=== PATIENT | female | born 1995 | race Caucasian/White ===

== ENCOUNTER 2018-09-24 10:30 | Inpatient (IN) | payer MEDICAID ==
[2018-09-24] VITALS (41 sets, daily range): BP systolic 89–198; BP diastolic 58–145; PULSE 76–107; RESP 11–27; Ht 167.6 cm; Wt 68.0 kg
[~2018-09-24] VITALS: Ht 167.6 cm; Wt 68.0 kg
[~2018-09-24 10:30] MED LIST: ETOMIDATE 20 MG INJ ONE; SUCCINYLCHOLINE CHLORIDE 100 MG/5 ML SYG IV ONE; VECURONIUM 10 MG VIAL ONE
[2018-09-24] MEDS ORDERED: LACTATED RINGER'S 1,000 ML IV SCH (10:33)
[2018-09-24] MEDS ORDERED: BETAMET NA PHOS/AC(6 MG/ML) 2 ML INJ SYG IM SCH (11:00)
[2018-09-24] MEDS ORDERED: OXYTOCIN 30 UNITS/LR 500 ML IV PRN ×2 (11:00→14:00)
[2018-09-24] MEDS ORDERED: METHYLERGONOVINE 0.2 MG INJ IM PRN ×2 (11:00→14:00)
[2018-09-24] MEDS ORDERED: MISOPROSTOL 200 MCG TAB PR PRN ×2 (11:00→14:00)
[2018-09-24] MEDS ORDERED: CARBOPROST 250 MCG INJ IM PRN ×2 (11:00→14:00)
[2018-09-24] MEDS ORDERED: LIDOCAINE 2% (SDV) 5 ML INJ ONE (11:01)
[2018-09-24] MEDS ORDERED: morphine 10 MG INJ ONE (11:01)
[2018-09-24] MEDS ORDERED: OXYTOCIN 30 UNITS/LR 500 ML BAG IV ONE (11:01)
[2018-09-24] MEDS ORDERED: SUGAMMADEX SODIUM 200 MG/2 ML VIAL IV ONE (11:13)
[2018-09-24] MEDS ORDERED: PROPOFOL 20 ML ONE (11:13)
[2018-09-24] MEDS ORDERED: ROCURONIUM 50 MG INJ ONE (11:13)
[2018-09-24] MEDS ORDERED: LABETALOL HCL 20MG INJ ONE (11:13)
[2018-09-24] MEDS ORDERED: SUCCINYLCHOLINE CHLORIDE 100 MG/5 ML SYG IV ONE (11:14)
[2018-09-24] MEDS ORDERED: DEXAMETHASONE 4 MG/ML 1 ML INJ ONE (11:14)
[2018-09-24] MEDS ORDERED: ONDANSETRON 4 MG INJ ONE (11:15)
[2018-09-24] MEDS ORDERED: MIDAZOLAM 1 MG/ML 2 ML INJ ONE (11:20)
[2018-09-24] MEDS ORDERED: LABETALOL HCL 20MG INJ IV PRN (12:00)
[2018-09-24] MEDS ORDERED: MIDAZOLAM 1 MG/ML 2 ML INJ IV PRN (12:00)
[2018-09-24] MEDS ORDERED: ALBUTEROL 0.083% (NEB) 2.5 MG/3 ML AMP HHN PRN (12:00)
[2018-09-24] MEDS ORDERED: hydrALAzine 20 MG INJ IV PRN (12:00)
[2018-09-24] MEDS ORDERED: MEPERIDINE 25 MG INJ IV PRN (12:00)
[2018-09-24] MEDS ORDERED: DIPHENHYDRAMINE 50 MG INJ IV PRN (12:00)
[2018-09-24] MEDS ORDERED: EPHEDrine 25 MG/5 ML SYG IV PRN (12:00)
[2018-09-24] MEDS ORDERED: KETOROLAC 30 MG INJ IV PRN (12:00)
[2018-09-24] MEDS ORDERED: HYDROmorphONE 0.5 MG/0.5 ML SYG IV PRN ×3 (12:00)
[2018-09-24] MEDS ORDERED: ONDANSETRON 4 MG INJ IV PRN (12:00)
[2018-09-24] MEDS ORDERED: LORAZEPAM 2 MG INJ ONE (12:21)
--- NOTE | 2018-09-24 12:29 | QN ---
Documentation Comment Called by ,ER attending ,there was a patient most likely in her third trimester seizing in ER and has received 2 gram of Mg and she was stable to be transferred to L&D He said There was a bedside ultrasound done in ER and baby was supposedly assumed to be in her third trimester, Besides that a friend of patient told us that she mentioned that her due date is in October. Upon Arrival to L&D,patient was noticed to be combative and not communicative I requested for a stat ultrasound,labs,Steroid injection ,Mg loading(Another 2 gram) and then maintenance of 2 gr /hr,Perinatology and Neonatology consult and Utox The plan was to perform a primary c/s when she was stable enough ,labs were back and Ultrasound confirmed a viable in her third Given the above information,,perinatologist was consulted im mediately.Over the phone,she recommended a c/section and She was asked to come to L&D and evaluate the patient and she kindly agreed to. Anesthesiologist ,Corrina Nj was called for consult and evaluation of patient . ,Second call was also called to be present and co-sign the c/section consent in case of Emergency and also assist the case, and were present at the bedside in few minutes .I was at the door that I heard a loud argument between them and He and Nurses were pushing the bed to the OR. told me that he gave the patient a medicine to calm her down, was informed immediately that I would not do a C/section unless she was stable enough and had an ultrasound confirming her third trimester Ultrasound was performed in the OR ,While and Ely present.Femoral length suggested third trimester and above 30 wks GA . recommended immediate c/section while the labs were not back and stated that patient was stable enough to get a surgery and confirmed the Decision. The c/section was performed successfully .Upon Entering to Uterine cavity, complete placental Abruption and around 200 cc blood noticed in Uterine cavity, The Pantry Goods Worker assumed care of the baby and Patient was transferred to ICU without any surgical complications and stable condition While surgery was still going on, and Amrita Nj entered the OR room again and as they had a heated conversation with and they were raising their voices loudly,I asked them to postpone any discussion in that regard for later on and allow the surgery continues smoothly as it's harmful to patient's safety and and kindly left the room MIKE SCHWARTZ M.D. Sep 24, 2018 12:29
[2018-09-24] MEDS ORDERED: CEFAZOLIN 2 GM/50 ML (PMX) 50 ML IVPB SCH (12:30)
--- NOTE | 2018-09-24 12:44 | CONS ---
Assessment/Plan Assessment/Plan Assessment/Plan (Daily) Assessment and recommendations; 1. Patient status post emergent for generalized seizure activity. 2. Intubated for airway protection. Continue mechanical ventilation. Add loading dose of Keppra 1 g followed by syncope milligrams every 12 hours. Continue Ativan as needed for breakthrough seizures. Monitor blood pressure. Add cefepime 1 g every 12 hours at least for 2 doses, obtain follow-up chest x-ray in 24 hours as well as postintubation chest x-ray. 35 minutes of critical care time was spent evaluating patient. Exclusive of any procedures. Procedure note; emergent intubation. Patient was given 20 mg of etomidate followed by vecuronium 10 mg IV push followed by intubation orally with 7.5 endotracheal tube without difficulty. Vocal cords were directly visualized and the tube traversed through. Chest x- ray has been ordered. Consultation Date/Type/Reason Admit Date/Time Sep 24, 2018 at 10:30 Date of Consultation: Sep 24, 2018 Type of Consult Pulmonary/critical care Patient is a 22-year-old lady who was third trimester came into the ER with seizures. Because of seizures patient had emergency done. Postoperatively patient was extubated transferred to ICU with the patient had a witnessed grand mal seizure. It was decided to electively intubate the patient. Past medical history; next 1. today. Medications; reviewed. Allergies; unknown. Social history, family history, occupational history is not available. Review of system; unable to be obtained. General exam; patient is not awake having seizures. Controlled with Ativan. Date/Time of Note DATE: 09/24/18 TIME: 12:41 Past Medical History Home Meds Unable to Obtain Active Prescriptions or Reported Meds Medications Current Medications Magnesium Sulfate 500 ml @ 50 mls/hr Q10H IV ; Start 09/24/18 at 10:32 Betamethasone Acet/Betameth SodPhos (Celestone Soluspan) 12 mg Q24H IM ; Start 09/24/18 at 11:00; Stop 09/25/18 at 11:01 Lactated Ringer's 1,000 ml @ 125 mls/hr Q8H IV ; Start 09/24/18 at 10:33 Cefazolin Sodium/ Dextrose 50 ml @ 100 mls/hr ONCE IVPB ; Start 09/24/18 at 12:30 Oxytocin/Lactated Ringer's 500 ml @ 0 mls/hr ONCE PRN IV .VAGINAL BLEEDING; Start 09/24/18 at 11:00 Methylergonovine Maleate (Methergine) 0.2 mg ONCE PRN IM .VAGINAL BLEEDING; Start 09/24/18 at 11:00 Carboprost Tromethamine (Hemabate) 250 mcg ONCE PRN IM .VAGINAL BLEEDING; Start 09/24/18 at 11:00 Misoprostol (Cytotec) 1,000 mcg ONCE PRN VT .VAGINAL BLEEDING; Start 09/24/18 at 11:00 Hydromorphone HCl (Dilaudid) 0.2 mg ICU RECOVERY PRN IV MILD PAIN LEVEL 1-3; Start 09/24/18 at 12:00; Stop 09/24/18 at 13:00 Hydromorphone HCl (Dilaudid) 0.4 mg ICU RECOVERY PRN IV MODERATE PAIN LEVEL 4-6; Start 09/24/18 at 12:00; Stop 09/24/18 at 13:00 Hydromorphone HCl (Dilaudid) 0.6 mg ICU RECOVERY PRN IV SEVERE PAIN LEVEL 7-10; Start 09/24/18 at 12:00; Stop 09/24/18 at 13:00 Ketorolac Tromethamine (Toradol) 30 mg ICU RECOVERY PRN IV FOR PAIN AFTER IV NARCOTIC MED; Start 09/24/18 at 12:00; Stop 09/24/18 at 13:00 Ondansetron HCl (Zofran Inj) 4 mg ICU RECOVERY PRN IV NAUSEA/VOMITING; Start 09/24/18 at 12:00; Stop 09/24/18 at 13:00 Labetalol HCl (Labetalol) 5 mg ICU RECOVERY PRN IV HIGH BLOOD PRESSURE; Start 09/24/18 at 12:00; Stop 09/24/18 at 13:00 Hydralazine HCl (Apresoline) 5 mg ICU RECOVERY PRN IV HIGH BLOOD PRESSURE; Start 09/24/18 at 12:00; Stop 09/24/18 at 13:00 Ephedrine Sulfate 5 mg PACU ORDER PRN IV BLOOD PRESSURRE SUPPORT; Start 09/24/18 at 12:00; Stop 09/24/18 at 13:00 Albuterol (Proventil 0.083% (Neb)) 2.5 mg ICU RECOVERY PRN HHN .WHEEZING; Start 09/24/18 at 12:00; Stop 09/24/18 at 13:00 Meperidine HCl (Demerol) 25 mg ICU RECOVERY PRN IV .RIGORS; Start 09/24/18 at 12:00; Stop 09/24/18 at 13:00 Diphenhydramine HCl (Benadryl) 25 mg ICU RECOVERY PRN IV .PRURITUS; Start 09/24/18 at 12:00; Stop 09/24/18 at 13:00 Midazolam HCl (Versed) 0.5 mg ICU RECOVERY PRN IV .ANXIETY; Start 09/24/18 at 12:00; Stop 09/24/18 at 13:00 Levetiracetam 100 ml @ 400 mls/hr ONCE ONCE IVPB ; Start 09/24/18 at 13:00; Stop 09/24/18 at 13:14; Status UNV Allergies: Coded Allergies: Unknown: Unable to obtain (Unverified , 09/24/18) 09/24 @ 1040am- per rn, unable to obtain allergy info at this time Exam/Review of Systems Exam Exam H EENT exam; supple neck, no JVD. No lymphadenopathy. Midline trachea. No thyromegaly. Pupils are small bilaterally. Patient has good dentition. Chest exam; clear to auscultation. S1-S2 audible, no murmurs. Regular rhythm. Abdomen exam; soft, midline dressing in place. Bowel sounds are sluggish. Extremity exam; no peripheral edema. PRINCIPAL JAVA SOFTWARE ENGINEER exam; patient just stopped having seizures. Is postictal. Results Result Diagram: 09/24/18 1213 09/24/18 1053 Results 24hrs Laboratory Tests Test 09/24/18 10:53 09/24/18 12:13 White Blood Count 12.4 H 23.2 #H Red Blood Count 4.04 L 4.38 Hemoglobin 11.9 L 12.8 Hematocrit 36.0 L 38.8 Mean Corpuscular Volume 89.1 88.6 Mean Corpuscular Hemoglobin 29.5 29.2 Mean Corpuscular Hemoglobin Concent 33.1 33.0 Red Cell Distribution Width 14.0 13.9 Platelet Count 181 194 Mean Platelet Volume 10.9 H 11.0 H Immature Granulocytes % 2.000 H 1.600 H Neutrophils % 82.3 H 89.8 H Lymphocytes % 11.2 L 5.7 L Monocytes % 3.8 2.5 Eosinophils % 0.3 0.1 Basophils % 0.4 0.3 Nucleated Red Blood Cells % 0.0 0.0 Immature Granulocytes # 0.250 H 0.370 H Neutrophils # 10.2 H 20.9 H Lymphocytes # 1.4 1.3 Monocytes # 0.5 0.6 Eosinophils # 0.0 0.0 Basophils # 0.1 0.1 Nucleated Red Blood Cells # 0.0 0.0 Prothrombin Time 11.7 L Prothrombin Time Ratio 0.9 INR International Normalized Ratio 0.85 Activated Partial Thromboplast Time 24.6 Fibrinogen 401.0 Sodium Level 139 Potassium Level 3.9 Chloride Level 110 Carbon Dioxide Level 21 Anion Gap 8 Blood Urea Nitrogen 6 L Creatinine 0.65 Est Glomerular Filtrat Rate mL/min > 60 Glucose Level 103 Uric Acid 7.1 Calcium Level 8.2 L Total Bilirubin 0.3 Direct Bilirubin 0.00 Indirect Bilirubin 0.3 Aspartate Amino Transf (AST/SGOT) 26 Alanine Aminotransferase (ALT/SGPT) 11 L Alkaline Phosphatase 120 Total Protein 6.1 Albumin 3.0 L Globulin 3.10 Albumin/Globulin Ratio 0.96 Medications Medication Current Medications Magnesium Sulfate 500 ml @ 50 mls/hr Q10H IV ; Start 09/24/18 at 10:32 Betamethasone Acet/Betameth SodPhos (Celestone Soluspan) 12 mg Q24H IM ; Start 09/24/18 at 11:00; Stop 09/25/18 at 11:01 Lactated Ringer's 1,000 ml @ 125 mls/hr Q8H IV ; Start 09/24/18 at 10:33 Cefazolin Sodium/ Dextrose 50 ml @ 100 mls/hr ONCE IVPB ; Start 09/24/18 at 12:30 Oxytocin/Lactated Ringer's 500 ml @ 0 mls/hr ONCE PRN IV .VAGINAL BLEEDING; Start 09/24/18 at 11:00 Methylergonovine Maleate (Methergine) 0.2 mg ONCE PRN IM .VAGINAL BLEEDING; Start 09/24/18 at 11:00 Carboprost Tromethamine (Hemabate) 250 mcg ONCE PRN IM .VAGINAL BLEEDING; Start 09/24/18 at 11:00 Misoprostol (Cytotec) 1,000 mcg ONCE PRN VT .VAGINAL BLEEDING; Start 09/24/18 at 11:00 Hydromorphone HCl (Dilaudid) 0.2 mg ICU RECOVERY PRN IV MILD PAIN LEVEL 1-3; Start 09/24/18 at 12:00; Stop 09/24/18 at 13:00 Hydromorphone HCl (Dilaudid) 0.4 mg ICU RECOVERY PRN IV MODERATE PAIN LEVEL 4-6; Start 09/24/18 at 12:00; Stop 09/24/18 at 13:00 Hydromorphone HCl (Dilaudid) 0.6 mg ICU RECOVERY PRN IV SEVERE PAIN LEVEL 7-10; Start 09/24/18 at 12:00; Stop 09/24/18 at 13:00 Ketorolac Tromethamine (Toradol) 30 mg ICU RECOVERY PRN IV FOR PAIN AFTER IV NARCOTIC MED; Start 09/24/18 at 12:00; Stop 09/24/18 at 13:00 Ondansetron HCl (Zofran Inj) 4 mg ICU RECOVERY PRN IV NAUSEA/VOMITING; Start 09/24/18 at 12:00; Stop 09/24/18 at 13:00 Labetalol HCl (Labetalol) 5 mg ICU RECOVERY PRN IV HIGH BLOOD PRESSURE; Start 09/24/18 at 12:00; Stop 09/24/18 at 13:00 Hydralazine HCl (Apresoline) 5 mg ICU RECOVERY PRN IV HIGH BLOOD PRESSURE; Start 09/24/18 at 12:00; Stop 09/24/18 at 13:00 Ephedrine Sulfate 5 mg PACU ORDER PRN IV BLOOD PRESSURRE SUPPORT; Start 09/24/18 at 12:00; Stop 09/24/18 at 13:00 Albuterol (Proventil 0.083% (Neb)) 2.5 mg ICU RECOVERY PRN HHN .WHEEZING; Start 09/24/18 at 12:00; Stop 09/24/18 at 13:00 Meperidine HCl (Demerol) 25 mg ICU RECOVERY PRN IV .RIGORS; Start 09/24/18 at 12:00; Stop 09/24/18 at 13:00 Diphenhydramine HCl (Benadryl) 25 mg ICU RECOVERY PRN IV .PRURITUS; Start 09/24/18 at 12:00; Stop 09/24/18 at 13:00 Midazolam HCl (Versed) 0.5 mg ICU RECOVERY PRN IV .ANXIETY; Start 09/24/18 at 12:00; Stop 09/24/18 at 13:00 Levetiracetam 100 ml @ 400 mls/hr ONCE ONCE IVPB ; Start 09/24/18 at 13:00; Stop 09/24/18 at 13:14; Status KIMO DE JESUS Sep 24, 2018 12:44
[2018-09-24] MEDS ORDERED: PROPOFOL 100 ML ONE (12:46)
--- NOTE | 2018-09-24 12:49 | HP ---
Date/Time of Note Date/Time of Note DATE: 09/24/18 TIME: 12:46 OB - History Hx of Present Free Text/Dictation patient is a transfer from the ER and most f the information are missing at this time She is combative and non communicative at this time Care: Limited Care Past Family/Social History * Past Medical, Surgical, Family and Obstetric Histories reviewed from chart. OB Admission Exam Physical Exam Abdomen: WNL Heart Rate: 140's Varibility: Moderate Last 72 hours Lab Results CBC & BMP 09/24/18 10:53 09/24/18 12:13 Liver Function Test 09/24/18 10:53 Alanine Aminotransferase (ALT/SGPT) 11 L Albumin 3.0 L Alkaline Phosphatase 120 Aspartate Amino Transf (AST/SGOT) 26 Direct Bilirubin 0.00 Total Protein 6.1 OB Assessment/Plan Reason for admission: observation Other Assessment: No information is available about PMH and PSH at this time Plan: Expectant Management Other plan: Called by ,ER attending ,there was a patient most likely in her third trimester seizing in ER and has received 2 gram of Mg and she was stable to be transferred to L&D He said There was a bedside ultrasound done in ER and baby was supposedly assumed to be in her third trimester, Besides that a friend of patient told us that she mentioned that her due date is in October. Upon Arrival to L&D,patient was noticed to be combative and not communicative I requested for a stat ultrasound,labs,Steroid injection ,Mg loading(Another 2 gram) and then maintenance of 2 gr /hr,Perinatology and Neonatology consult and Utox The plan was to perform a primary c/s when she was stable enough ,labs were back and Ultrasound confirmed a viable in her third Given the above information,,perinatologist was consulted immediately.Over the phone,she recommended a c/section and She was asked to come to L&D and evaluate the patient and she kindly agreed to. Anesthesiologist ,Corrina jN was called for consult and evaluation of patient . ,Second call was also called to be present and co-sign the c/section consent in case of Emergency and also assist the case, and were present at the bedside in few minutes .I was at the door that I heard a loud argument between them and He and Nurses were pushing the bed to the OR. told me that he gave the patient a medicine to calm her down, was informed immediately that I would not do a C/section unless she was stable enough and had an ultrasound confirming her third trimester Ultrasound was performed in the OR ,While and Ely present.Femoral length suggested third trimester and above 30 wks [place] . recommended immediate c/section while the labs were not back and stated that patient was stable enough to get a surgery and confirmed the Decision. The c/section was performed successfully .Upon Entering to Uterine cavity, complete placental Abruption and around 200 cc blood noticed in Uterine cavity, The Featherer assumed care of the baby and Patient was transferred to ICU without any surgical complications and stable condition While surgery was still going on, and Amrita Nj entered the OR room again and as they had a heated conversation with and they were raising their voices loudly,I asked them to postpone any discussion in that regard for later on and allow the surgery continues smoothly as it's harmful to patient's safety and and kindly left the room MIKE SCHWARTZ M.D. Sep 24, 2018 12:49
[2018-09-24] MEDS ORDERED: hydrALAzine 20 MG INJ ONE (13:02)
[2018-09-24] MEDS ORDERED: LEVETIRACETAM 1000 MG (PMX) 100 ML IVPB ONE (13:30)
[2018-09-24] MEDS ORDERED: OXYTOCIN 30 UNITS/LR 500 ML IV SCH (13:31)
[2018-09-24] MEDS ORDERED: LANOLIN HPA 1 PKT TOP PRN (14:00)
[2018-09-24] MEDS: PROPOFOL 100 ML IV SCH (14:10)
[2018-09-24] MEDS: MAGNESIUM SULFATE 20 GM/500 ML 500 ML IV SCH ×2 (14:24→20:32)
[2018-09-24] MEDS ORDERED: LORAZEPAM 2 MG INJ IV PRN (15:00)
--- NOTE | 2018-09-24 15:13 | CONS ---
Assessment/Plan Assessment/Plan Hospital Course (Demo Recall) Assessment and plan: 22-year-old female past medical history of being presently 30 weeks , who arrived to the emergency room after having seizure activity likely secondary to eclampsia, now status post emergency , presently intubated and sedated. # Seizure activity: Again likely secondary to eclampsia and again patient had emergency earlier today. After being extubated she had another witnessed seizure activity, the third it appears to be total today. Again david bowden currently had no care during this (and may in fact have been unaware of the ) -For now continue Keppra and Ativan as ordered by primary team -Likely will need neuro checks every 4 hours, and will obtain neurology consult and order EEG -Continue magnesium as ordered by primary LUDLOW MACHINE OPERATOR team -Follow-up results of urine drug screen which is still pending, and UA #Respiratory distress: Again intubated for airway protection secondary to seizure activity both before and after the emergency section -Continue mechanical ventilation via pulmonary recommendations, monitor #Status post resection: Again patient was approximately 30 weeks before the D&C earlier today -Continue post care per primary LUDLOW MACHINE OPERATOR team including labs and other We will continue to follow along with you. Critical care time spent on patient care today equals 45 minutes Consultation Date/Type/Reason Admit Date/Time Sep 24, 2018 at 10:30 Date/Time of Note DATE: 09/24/18 TIME: 14:55 Hx of Present Illness 22-year-old female past medical history of being presently 30 weeks , who arrived to the emergency room after having seizure activity. Most of the information is obtained upon discussion with the instructional design consultant teams as the patient is presently intubated and sedated. Earlier today patient apparently had seizure activity at home. Apparently the patient has not had any care. There was concern so patient came to the ER. She was witnessed to have another seizure activity in the ER and the ER team called the LUDLOW MACHINE OPERATOR team to come about with the patient and also patient was given mag sulfate at that time. Patient also altered mental status, thought to be likely secondary to postictal state from the seizure activity in the ER. Because of seizures patient had an emergency done. Postoperatively patient was extubated transferred to ICU, but the patient had another seizure, a witnessed grand mal seizure. It was decided to electively intubate the patient. Full review of systems cannot be obtained at this time. Presently patient is getting IV Keppra, and received Ativan short time ago. Past Medical History Home Meds Unable to Obtain Active Prescriptions or Reported Meds Medications Current Medications Magnesium Sulfate 500 ml @ 50 mls/hr Q10H IV ; Start 09/24/18 at 10:32 Levetiracetam 750 mg/Dextrose 107.5 ml @ 430 mls/hr Q12 IVPB ; Start 09/24/18 at 23:30 Cefepime HCl 50 ml @ 100 mls/hr Q12 IVPB ; Start 09/24/18 at 13:00 Pantoprazole (Protonix Iv) 40 mg DAILY@06 IV ; Start 09/25/18 at 06:00 Oxytocin/Lactated Ringer's 500 ml @ 50 mls/hr Q10H IV ; Start 09/24/18 at 13:31; Stop 09/24/18 at 23:30 Oxycodone/ Acetaminophen (Percocet (5/ 325)) 2 tab Q4H PRN PO .PAIN 7-10; Start 09/24/18 at 14:00 Ibuprofen (Motrin) 600 mg Q6 PO ; Start 09/24/18 at 18:00 Lanolin (Lanolin Hpa) 1 applic BEDSIDE MEDICATION PRN TOP .NIPPLES; Start 09/24/18 at 14:00 Diphtheria/ Tetanus/Acell Pertussis (Adacel) 0.5 ml ONCE ONCE IM* ; Start 09/27/18 at 09:00; Stop 09/27/18 at 09:01 Oxytocin/Lactated Ringer's 500 ml @ 0 mls/hr ONCE PRN IV .VAGINAL BLEEDING; Start 09/24/18 at 14:00 Methylergonovine Maleate (Methergine) 0.2 mg ONCE PRN IM .VAGINAL BLEEDING; Start 09/24/18 at 14:00 Carboprost Tromethamine (Hemabate) 250 mcg ONCE PRN IM .VAGINAL BLEEDING; Start 09/24/18 at 14:00 Misoprostol (Cytotec) 1,000 mcg ONCE PRN ME .VAGINAL BLEEDING; Start 09/24/18 at 14:00 Allergies: Coded Allergies: Unknown: Unable to obtain (Unverified , 09/24/18) 09/24 @ 1040am- per rn, unable to obtain allergy info at this time Past Surgical History Past Surgical Hx: other (Unknown) Family History Significant Family History: other (Unknown) Social History Alcohol Use: other (Unknown) Smoking Status: Unknown if ever smoked Drug Use: other (Unknown) Exam/Review of Systems Exam Exam Gen: Lying in bed, intubated and sedated HEENT exam: Pupils are small bilaterally. Patient has good dentition. Neck: supple neck, no JVD. No lymphadenopathy. Midline trachea. No thyromegaly. Res; clear to auscultation. CV: S1-S2 audible, no murmurs. Regular rhythm. Abdomen exam; soft, midline dressing in place. Bowel sounds are sluggish. Extremity exam; no peripheral edema. VAT OPERATOR exam; patient intubated and sedated, earlier was postictal after having seizure activity Results Result Diagram: 09/24/18 1213 09/24/18 1053 Results 24hrs Laboratory Tests Test 09/24/18 10:53 09/24/18 12:13 09/24/18 13:34 09/24/18 14:07 White Blood Count 12.4 H 23.2 #H Red Blood Count 4.04 L 4.38 Hemoglobin 11.9 L 12.8 Hematocrit 36.0 L 38.8 Mean Corpuscular 89.1 88.6 Volume Mean Corpuscular 29.5 29.2 Hemoglobin Mean Corpuscular 33.1 33.0 Hemoglobin Concen t Red Cell 14.0 13.9 Distribution Width Platelet Count 181 194 Mean Platelet 10.9 H 11.0 H Volume Immature 2.000 H 1.600 H Granulocytes % Neutrophils % 82.3 H 89.8 H Lymphocytes % 11.2 L 5.7 L Monocytes % 3.8 2.5 Eosinophils % 0.3 0.1 Basophils % 0.4 0.3 Nucleated Red 0.0 0.0 Blood Cells % Immature 0.250 H 0.370 H Granulocytes # Neutrophils # 10.2 H 20.9 H Lymphocytes # 1.4 1.3 Monocytes # 0.5 0.6 Eosinophils # 0.0 0.0 Basophils # 0.1 0.1 Nucleated Red 0.0 0.0 Blood Cells # Prothrombin Time 11.7 L Prothrombin Time 0.9 Ratio INR International 0.85 Normalized Ratio Activated 24.6 Partial Thrombopl ast Time Fibrinogen 401.0 Sodium Level 139 Potassium Level 3.9 Chloride Level 110 Carbon Dioxide 21 Level Anion Gap 8 Blood Urea 6 L Nitrogen Creatinine 0.65 Est Glomerular > 60 Filtrat Rate mL/min Glucose Level 103 Uric Acid 7.1 Calcium Level 8.2 L Total Bilirubin 0.3 Direct Bilirubin 0.00 Indirect 0.3 Bilirubin Aspartate Amino 26 Transf (AST/SGOT) Alanine 11 L Aminotransferase (ALT/SGPT) Alkaline 120 Phosphatase Total Protein 6.1 Albumin 3.0 L Globulin 3.10 Albumin/Globulin 0.96 Ratio Magnesium Level 2.2 1.9 Blood Gas Blood arterial Specimen Source Arterial Blood 09/24/2018 1:21:2 Date Drawn 9 PM Arterial Blood pH 7.341 L (Temp corrected) Arterial Blood 31.2 L pCO2 (Temp correct) Arterial Blood 215.3 H pO2 (Temp corrected) Arterial Blood 16.5 L HCO3 Arterial Blood -8.0 L Base Excess Arterial Blood 99.2 H Oxygen Saturation Al Test ACCEPTAB Arterial Blood Right Radial Gas Puncture Site Arterial 0.1 Blood Carboxyhemo globin Arterial Blood 0.6 Methemoglobin Blood Gas A-a O2 34.0 H Differential Oxyhemoglobin 98.5 Percent Blood Gas 37.0 Temperature Blood Gas 14.0 Respiration Rate Blood Gas Actual 25 Respiration Rate Blood Gas VENT - AC Modality FiO2 40.0 Blood Gas Tidal 450.0 Volume Blood Gas Low 5.0 PEEP Setting Blood Gas TM Notified Whom Blood Gas 09/24/2018 1:42:0 Notified Time 6 PM Medications Medication Current Medications Magnesium Sulfate 500 ml @ 50 mls/hr Q10H IV ; Start 09/24/18 at 10:32 Levetiracetam 750 mg/Dextrose 107.5 ml @ 430 mls/hr Q12 IVPB ; Start 09/24/18 at 23:30 Cefepime HCl 50 ml @ 100 mls/hr Q12 IVPB ; Start 09/24/18 at 13:00 Pantoprazole (Protonix Iv) 40 mg DAILY@06 IV ; Start 09/25/18 at 06:00 Oxytocin/Lactated Ringer's 500 ml @ 50 mls/hr Q10H IV ; Start 09/24/18 at 13:31; Stop 09/24/18 at 23:30 Oxycodone/ Acetaminophen (Percocet (5/ 325)) 2 tab Q4H PRN PO .PAIN 7-10; Start 09/24/18 at 14:00 Ibuprofen (Motrin) 600 mg Q6 PO ; Start 09/24/18 at 18:00 Lanolin (Lanolin Hpa) 1 applic BEDSIDE MEDICATION PRN TOP .NIPPLES; Start 09/24/18 at 14:00 Diphtheria/ Tetanus/Acell Pertussis (Adacel) 0.5 ml ONCE ONCE IM* ; Start 09/27/18 at 09:00; Stop 09/27/18 at 09:01 Oxytocin/Lactated Ringer's 500 ml @ 0 mls/hr ONCE PRN IV .VAGINAL BLEEDING; Start 09/24/18 at 14:00 Methylergonovine Maleate (Methergine) 0.2 mg ONCE PRN IM .VAGINAL BLEEDING; Start 09/24/18 at 14:00 Carboprost Tromethamine (Hemabate) 250 mcg ONCE PRN IM .VAGINAL BLEEDING; Start 09/24/18 at 14:00 Misoprostol (Cytotec) 1,000 mcg ONCE PRN ME .VAGINAL BLEEDING; Start 09/24/18 at 14:00 MARYCARMEN JUAREZ Sep 24, 2018 15:05
[2018-09-24] MEDS: FENTAnyl (DRIP) 1000 mcg/100mL 100 ML IV SCH ×2 (15:43→23:37)
[2018-09-24] MEDS: CEFEPIME 1GM/50 ML (PMX) 50 ML IVPB SCH ×2 (15:45→21:37)
--- NOTE | 2018-09-24 16:36 | OPR ---
DATE OF OPERATION: 09/24/2018 PREOPERATIVE DIAGNOSIS: Severe preeclampsia, third trimester . POSTOPERATIVE DIAGNOSIS: Complete placental abruption, eclampsia. SURGEON: Chano Browne MD BEND SORTER: Dr. Molina ANESTHESIOLOGIST: Dr. Houser. ANESTHESIA: General. COMPLICATIONS: None. ESTIMATED BLOOD LOSS: 600 mL. TECHNIQUE: The patient was taken to the operating room where general anesthesia was found to be adeq uate. The patient was placed in supine position. After prep and drape, a Pfannenstiel incision was made 2 cm above the symphysis pubis. It was extended to the underlying fascia. Fascia was nicked in the midline. Fascial incision was extended bilaterally. Fascia was from underlying muscl es. Muscles in the midline. Peritoneum was entered sharply. Peritoneal incision was exte nded. Bladder blade was placed inside the abdominal cavity. Lower uterine segment incision was made , around 200 mL blood was coming out of the uterine cavity and placenta was completely . Ba by was delivered vertex, handed to the NICU team. Cord blood sent. Placenta sent to pathology. Low er the uterus was exteriorized. Intrauterine cavity was cleaned using 2 sponges. Lower uterine segm ent incision was closed in 2 layers using 0 looped PDS sutures. Gutters were cleaned. Uterus was in serted inside the abdominal cavity. Lap count correct. Peritoneum and muscles were reapproximated u sing 2-0 chromic sutures. Fascia was closed in a running nonlocking fashion using 0 looped PDS sutur es. Skin was closed using 4-0 Monocryl sutures. Dermabond was placed on top of the incision. The patient tolerated the procedure well and was transferred to recovery room in stable condition. T here was no complication regarding this surgery. Dictated By: CHANO BROWNE MD RG/NTS Conf#: [id number] DID#: [id number] CC: CHANO BROWNE MD;*EndCC*
[2018-09-24] MEDS: MIDAZOLAM (DRIP) 50 mg/50 mL 50 ML IV SCH ×2 (16:37→22:18)
--- NOTE | 2018-09-24 16:44 | SP ---
DATE OF PROCEDURE: 09/24/2018 PROCEDURE: Central line placement. INDICATION: Poor IV access with active seizures. DESCRIPTION OF PROCEDURE: Patient was placed in supine position. Right femoral site was cleaned and prepped in usual sterile manner. A large bore needle was passed into femoral vein using direct ultr asound guidance. Following passage of guidewire and dilatation using Seldinger technique, triple lum en catheter passed over guidewire. The patient had good flow through all 3 ports and the triple lume n catheter was then sutured in place. Dictated By: STERLING PLATT MD SV/NTS Conf#: [id number] DID#: [id number] CC: MIKE SCHWARTZ MD;*End*
[2018-09-24] MEDS: IBUPROFEN 600 MG TAB PO SCH ×2 (18:00→23:26)
--- NOTE | 2018-09-24 20:28 | QN ---
Documentation Comment I was called to the ICU to reintubate the patient due to a cuff leak. Endotracheal Intubation by me: Pre assessment performed. See preceding note for details. Pre-oxygenation performed with 100% oxygen RSI: Performed w/o complication or hypoxic events. Medications as ordered. Blade: Mac 4 ET Tube: 7.5 cm Depth: 21 cm at the lip Intubation confirmed by colorimetric CO2, equal breath sounds, quiet over the stomach. ELVIN RAMIREZ MD Sep 24, 2018 20:28
[2018-09-24] MEDS ORDERED: SOD CHLORIDE 0.9% 250 ML IV ONE (21:00)
[2018-09-24] MEDS: LEVETIRACETAM IV 750 MG in DEXTROSE 5% 100 ML IVPB SCH (23:22)
[2018-09-25] VITALS (54 sets, daily range): BP systolic 89–115; BP diastolic 47–79; PULSE 49–100; RESP 10–17
[2018-09-25] MEDS: MAGNESIUM SULFATE 20 GM/500 ML 500 ML IV SCH ×3 (01:37→05:22)
[2018-09-25] MEDS: PROPOFOL 100 ML IV SCH ×4 (03:07→22:13)
[2018-09-25] MEDS: IBUPROFEN 600 MG TAB PO SCH ×4 (05:14→21:54)
[2018-09-25] MEDS ORDERED: PANTOPRAZOLE 40 MG INJ IV SCH (06:00)
--- NOTE | 2018-09-25 06:16 | EEG ---
EEG NOTE Report Details DATE OF TEST: 09/24/18 HISTORY: The patient is a 22-year-old F who presents with antepartum seizures. This EEG is requested to evaluate for an epileptic disorder. SEDATION: ? CONDITIONS OF RECORDING: This EEG was recorded digitally on the [employer] machine, using the International 10-20 System of electrodes plus anterior temporals and [place]. STATES SAMPLED: Lethargic. FINDINGS: The background is continuous and grossly symmetric...predominated by polymorphic theta and delta activity. The normal deevksyj-hl-ywmsconxo frequency-amplitude gradient was absent. Photic stimulation does not elicit any definite driving responses or epileptiform discharges. Hyperventilation was not performed. No asymmetries, focal abnormalities or epileptiform discharges were seen. IMPRESSION: Abnormal electroencephalogram due to: diffuse slowing. COMMENT: The slowing of the background indicates diffuse cortical dysfunction of nonspecific etiology. MAURI RANKIN Sep 25, 2018 06:16
[2018-09-25] MEDS: MIDAZOLAM (DRIP) 50 mg/50 mL 50 ML IV SCH (06:53)
--- NOTE | 2018-09-25 08:17 | CONS ---
Assessment/Plan Assessment/Plan Assessment/Plan (Daily) Chest x-ray showing Very minimal right perihilar infiltrate. Endotracheal tube is just above faraz a. Ventilator setting; assist control of 14, tidal volume 450, PEEP of 5, 30% FiO2. Patient is currently on propofol 30 mics per kilogram per minute, Versed 6 mg/h, fentanyl 100 mics per hour. Assessment recommendations; 1. Patient admitted for generalized seizure activity status post emergent C- section yesterday. Patient continued to exhibit seizures postdelivery requiring intubation yesterday as well. 2. No other comorbid conditions. No history of prior seizures. 3. Possibly some element of right perihilar infiltrate. Possibly aspiration. Continue current supportive care. Hold further sedation to assess mental status. Once the patient is off sedation will continue to observe for the next several hours to ensure there is no recurrent seizure activity before extubation. Meanwhile continue current antimicrobial regimen. Obtain follow-up chest x-ray 24 hours. I did have a detailed discussion with the patient's aunt and niece at bedside and answered all their questions. 35 minutes of critical care time was spent evaluating patient. Consultation Date/Type/Reason Admit Date/Time Sep 24, 2018 at 10:30 Initial Consult Date 09/24/18 Type of Consult Pulmonary/critical care Patient is a 22-year-old lady who was third trimester came into the ER with seizures. Because of seizures patient had emergency done. Postoperatively patient was extubated transferred to ICU with the patient had a witnessed grand mal seizure. It was decided to electively intubate the patient. Past medical history; next 1. today. Medications; reviewed. Allergies; unknown. Social history, family history, occupational history is not available. Review of system; unable to be obtained. General exam; patient is not awake having seizures. Controlled with Ativan. Date/Time of Note DATE: 09/25/18 TIME: 08:14 24 HR Interval Summary Free Text/Dictation Patient's condition is critical. However no further seizure activity reported. Patient has remained hemodynamically stable. General exam; young female, orally intubated, sedated, currently in no distress. Exam/Review of Systems Exam Vitals Vital Signs Date Temp Pulse Resp B/P (MAP) Pulse Ox O2 O2 Flow FiO2 Time Delivery Rate 09/25/18 68 13 98/56 (70) 100 Mechanical 07:00 Ventilator 09/25/18 30 05:37 09/25/18 98.0 04:00 Intake and Output 09/24/18 09/24/18 09/25/18 1515:00 23:00 07:00 IntakeIntake Total 110 ml 623.66 ml 560.42 ml OutputOutput Total 210 ml 665 ml 805 ml BalanceBalance -100 ml -41.34 ml -244.58 ml Exam H ENT exam; supple neck, no JVD. No lymphadenopathy. Midline trachea. No thyromegaly. Orally intubated. Patient has good dentition. No neck masses. Pupils are midsize bilaterally. Reactive to light. Chest exam; clear to auscultation. S1-S2 audible, no murmurs. Regular rhythm. Abdomen exam; soft, nondistended. No organomegaly. Bowel sounds are audible. Lower abdominal dressing in place. Extremity exam; no peripheral edema clubbing. EXCELSIOR CUTTER exam; patient is sedated. Results Result Diagram: 09/25/18 0400 09/25/18 0400 Results 24hrs Laboratory Tests Test 09/24/18 10:53 09/24/18 12:13 09/24/18 13:34 09/24/18 14:07 White Blood Count 12.4 H 23.2 #H Red Blood Count 4.04 L 4.38 Hemoglobin 11.9 L 12.8 Hematocrit 36.0 L 38.8 Mean Corpuscular 89.1 88.6 Volume Mean Corpuscular 29.5 29.2 Hemoglobin Mean Corpuscular 33.1 33.0 Hemoglobin Concen t Red Cell 14.0 13.9 Distribution Width Platelet Count 181 194 Mean Platelet 10.9 H 11.0 H Volume Immature 2.000 H 1.600 H Granulocytes % Neutrophils % 82.3 H 89.8 H Lymphocytes % 11.2 L 5.7 L Monocytes % 3.8 2.5 Eosinophils % 0.3 0.1 Basophils % 0.4 0.3 Nucleated Red 0.0 0.0 Blood Cells % Immature 0.250 H 0.370 H Granulocytes # Neutrophils # 10.2 H 20.9 H Lymphocytes # 1.4 1.3 Monocytes # 0.5 0.6 Eosinophils # 0.0 0.0 Basophils # 0.1 0.1 Nucleated Red 0.0 0.0 Blood Cells # Prothrombin Time 11.7 L Prothrombin Time 0.9 Ratio INR International 0.85 Normalized Ratio Activated 24.6 Partial Thrombopl ast Time Fibrinogen 401.0 Sodium Level 139 Potassium Level 3.9 Chloride Level 110 Carbon Dioxide 21 Level Anion Gap 8 Blood Urea 6 L Nitrogen Creatinine 0.65 Est Glomerular > 60 Filtrat Rate mL/min Glucose Level 103 Uric Acid 7.1 Calcium Level 8.2 L Total Bilirubin 0.3 Direct Bilirubin 0.00 Indirect 0.3 Bilirubin Aspartate Amino 26 Transf (AST/SGOT) Alanine 11 L Aminotransferase (ALT/SGPT) Alkaline 120 Phosphatase Total Protein 6.1 Albumin 3.0 L Globulin 3.10 Albumin/Globulin 0.96 Ratio Rapid Plasma REACTIVE H Reagin RPR Titer 1:32 H Additional Testing Magnesium Level 2.2 1.9 Hepatitis B NEGATIVE Surface Antigen Blood Gas Blood arterial Specimen Source Arterial Blood 09/24/2018 1:21:2 Date Drawn 9 PM Arterial Blood pH 7.341 L (Temp corrected) Arterial Blood 31.2 L pCO2 (Temp correct) Arterial Blood 215.3 H pO2 (Temp corrected) Arterial Blood 16.5 L HCO3 Arterial Blood -8.0 L Base Excess Arterial Blood 99.2 H Oxygen Saturation Al Test ACCEPTAB Arterial Blood Right Radial Gas Puncture Site Arterial 0.1 Blood Carboxyhemo globin Arterial Blood 0.6 Methemoglobin Blood Gas A-a O2 34.0 H Differential Oxyhemoglobin 98.5 Percent Blood Gas 37.0 Temperature Blood Gas 14.0 Respiration Rate Blood Gas Actual 25 Respiration Rate Blood Gas VENT - AC Modality FiO2 40.0 Blood Gas Tidal 450.0 Volume Blood Gas Low 5.0 PEEP Setting Blood Gas TM Notified Whom Blood Gas 09/24/2018 1:42:0 Notified Time 6 PM Test 09/24/18 14:45 09/24/18 15:51 09/24/18 16:20 09/24/18 18:04 Magnesium Level 2.2 4.0 H 5.1 *H Urine Color MARIA D Urine Clarity CLOUDY A Urine pH 5.0 Urine Specific 1.034 H [place] Urine Ketones NEGATIVE Urine Nitrite NEGATIVE Urine Bilirubin NEGATIVE Urine NEGATIVE Urobilinogen Urine Leukocyte NEGATIVE Esterase Urine Microscopic 40 H RBC Urine Microscopic 160 H WBC Urine Squamous FEW Epithelial Cells Urine Bacteria FEW A Urine Granular FEW A Casts Urine Mucus FEW A Urine Hemoglobin 1+ H Urine Glucose 2+ H Urine Total 3+ H Protein Urine Opiates POSITIVE Screen Urine NEGATIVE Barbiturates Urine NEGATIVE Amphetamines Screen Urine POSITIVE Benzodiazepines Screen Urine Cocaine NEGATIVE Screen Urine POSITIVE Cannabinoids Test 09/24/18 20:06 09/24/18 21:15 09/25/18 04:00 Magnesium Level 11.8 #*H 5.6 #*H 7.7 *H Sodium Level 134 L 132 L Potassium Level 4.3 4.8 Chloride Level 109 107 Carbon Dioxide 17 L 21 Level Anion Gap 8 4 L Blood Urea 9 9 Nitrogen Creatinine 0.66 0.88 Est Glomerular > 60 > 60 Filtrat Rate mL/min Glucose Level 120 114 Calcium Level 7.6 L 6.8 L Total Bilirubin 0.4 Direct Bilirubin 0.00 Indirect 0.4 Bilirubin Aspartate Amino 39 Transf (AST/SGOT) Alanine 18 Aminotransferase (ALT/SGPT) Alkaline 121 Phosphatase Total Protein 5.8 L Albumin 2.7 L Globulin 3.10 Albumin/Globulin 0.87 Ratio White Blood Count 18.5 #H Red Blood Count 3.27 #L Hemoglobin 9.5 #L Hematocrit 29.2 #L Mean Corpuscular 89.3 Volume Mean Corpuscular 29.1 Hemoglobin Mean Corpuscular 32.5 Hemoglobin Concen t Red Cell 14.2 Distribution Width Platelet Count 178 Mean Platelet 10.3 Volume Immature 0.600 H Granulocytes % Neutrophils % 83.0 H Lymphocytes % 9.9 L Monocytes % 6.3 Eosinophils % 0.0 Basophils % 0.2 Nucleated Red 0.0 Blood Cells % Immature 0.110 H Granulocytes # Neutrophils # 15.3 H Lymphocytes # 1.8 Monocytes # 1.2 H Eosinophils # 0.0 Basophils # 0.0 Nucleated Red 0.0 Blood Cells # Medications Medication Current Medications Levetiracetam 750 mg/Dextrose 107.5 ml @ 430 mls/hr Q12 IVPB Last administered on 09/24/18at 23:22; Admin Dose 430 MLS/HR; Start 09/24/18 at 23:30 Cefepime HCl 50 ml @ 100 mls/hr Q12 IVPB Last administered on 09/24/18at 21:37; Admin Dose 100 MLS/HR; Start 09/24/18 at 13:00 Pantoprazole (Protonix Iv) 40 mg DAILY@06 IV Last administered on 09/25/18at 05:13; Admin Dose 40 MG; Start 09/25/18 at 06:00 Oxycodone/ Acetaminophen (Percocet (5/ 325)) 2 tab Q4H PRN PO .PAIN 7-10; Start 09/24/18 at 14:00 Ibuprofen (Motrin) 600 mg Q6 PO ; Start 09/24/18 at 18:00 Lanolin (Lanolin Hpa) 1 applic BEDSIDE MEDICATION PRN TOP .NIPPLES; Start 09/24/18 at 14:00 Diphtheria/ Tetanus/Acell Pertussis (Adacel) 0.5 ml ONCE ONCE IM* ; Start 09/27/18 at 09:00; Stop 09/27/18 at 09:01 Oxytocin/Lactated Ringer's 500 ml @ 0 mls/hr ONCE PRN IV .VAGINAL BLEEDING; Start 09/24/18 at 14:00 Methylergonovine Maleate (Methergine) 0.2 mg ONCE PRN IM .VAGINAL BLEEDING; Start 09/24/18 at 14:00 Carboprost Tromethamine (Hemabate) 250 mcg ONCE PRN IM .VAGINAL BLEEDING; Start 09/24/18 at 14:00 Misoprostol (Cytotec) 1,000 mcg ONCE PRN [place] .VAGINAL BLEEDING; Start 09/24/18 at 14:00 Lorazepam (Ativan) 1 mg Q1H PRN IV SEIZURES; Start 09/24/18 at 15:00 Fentanyl 100 ml @ 2.5 mls/hr TITRATE IV Last administered on 09/24/18at 23:37; Admin Dose 10 MLS/HR; Start 09/24/18 at 15:30 Midazolam HCl 50 ml @ 1 mls/hr TITRATE IV Last administered on 09/25/18at 06:53; Admin Dose 6 MLS/HR; Start 09/24/18 at 16:30 Propofol 100 ml @ 2.04 mls/hr Q12H IV Last administered on 09/25/18at 03:07; Admin Dose 12.24 MLS/HR; Start 09/24/18 at 15:30 Magnesium Sulfate 500 ml @ 37.5 mls/hr [id number] IV Last administered on 09/25/18at 05:22; Admin Dose 37.5 MLS/HR; Start 09/25/18 at 05:05 KIMO ALVAREZ Sep 25, 2018 08:17
[2018-09-25] MEDS: CEFEPIME 1GM/50 ML (PMX) 50 ML IVPB SCH ×2 (09:15→20:43)
[2018-09-25] MEDS: LEVETIRACETAM IV 750 MG in DEXTROSE 5% 100 ML IVPB SCH ×2 (09:15→22:04)
[2018-09-25] MEDS: FENTAnyl (DRIP) 1000 mcg/100mL 100 ML IV SCH ×2 (09:35→19:27)
--- NOTE | 2018-09-25 10:53 | CONS ---
Consult Date/Type/Reason Admit Date/Time Sep 24, 2018 at 10:30 Initial Consult Date 09/24/18 Date/Time of Note DATE: 09/25/18 TIME: 10:49 Subjective Patient still intubated, received magnesium last night. No seizure activity since yesterday. Seen by pulmonary team earlier this morning. EEG was perfo rmed, results reviewed Objective Vitals Vital Signs Date Temp Pulse Resp B/P (MAP) Pulse Ox O2 O2 Flow FiO2 Time Delivery Rate 09/25/18 64 14 95/58 (70) 100 09:00 09/25/18 96.4 Mechanical 08:00 Ventilator 09/25/18 30 05:37 Intake and Output 09/24/18 09/24/18 09/25/18 1515:00 23:00 07:00 IntakeIntake Total 110 ml 623.66 ml 560.42 ml OutputOutput Total 210 ml 665 ml 805 ml BalanceBalance -100 ml -41.34 ml -244.58 ml Exam Gen: Lying in bed, intubated HEENT exam: Pupils are small bilaterally. Neck: supple neck, no JVD. No lymphadenopathy. Midline trachea. No thyrom egaly. Res; clear to auscultation. CV: S1-S2 audible, no murmurs. Regular rhythm. Abdomen exam; soft, midline dressing in place. Bowel sounds are sluggish. Extremity exam; no peripheral edema. PERFUME MAKER exam; patient intubated and sedated EEG September 24, 2018: IMPRESSION: Abnormal electroencephalogram due to: diffuse slowing. COMMENT: The slowing of the background indicates diffuse cortical dysfunction of nonspecific etiology. Results/Medications Result Diagram: 09/25/18 0400 09/25/18 0400 Results 24 hrs Laboratory Tests Test 09/24/18 10:53 09/24/18 12:13 09/24/18 13:34 09/24/18 14:07 White Blood Count 12.4 H 23.2 #H Red Blood Count 4.04 L 4.38 Hemoglobin 11.9 L 12.8 Hematocrit 36.0 L 38.8 Mean Corpuscular 89.1 88.6 Volume Mean Corpuscular 29.5 29.2 Hemoglobin Mean Corpuscular 33.1 33.0 Hemoglobin Concen t Red Cell 14.0 13.9 Distribution Width Platelet Count 181 194 Mean Platelet 10.9 H 11.0 H Volume Immature 2.000 H 1.600 H Granulocytes % Neutrophils % 82.3 H 89.8 H Lymphocytes % 11.2 L 5.7 L Monocytes % 3.8 2.5 Eosinophils % 0.3 0.1 Basophils % 0.4 0.3 Nucleated Red 0.0 0.0 Blood Cells % Immature 0.250 H 0.370 H Granulocytes # Neutrophils # 10.2 H 20.9 H Lymphocytes # 1.4 1.3 Monocytes # 0.5 0.6 Eosinophils # 0.0 0.0 Basophils # 0.1 0.1 Nucleated Red 0.0 0.0 Blood Cells # Prothrombin Time 11.7 L Prothrombin Time 0.9 Ratio INR International 0.85 Normalized Ratio Activated 24.6 Partial Thrombopl ast Time Fibrinogen 401.0 Sodium Level 139 Potassium Level 3.9 Chloride Level 110 Carbon Dioxide 21 Level Anion Gap 8 Blood Urea 6 L Nitrogen Creatinine 0.65 Est Glomerular > 60 Filtrat Rate mL/min Glucose Level 103 Uric Acid 7.1 Calcium Level 8.2 L Total Bilirubin 0.3 Direct Bilirubin 0.00 Indirect 0.3 Bilirubin Aspartate Amino 26 Transf (AST/SGOT) Alanine 11 L Aminotransferase (ALT/SGPT) Alkaline 120 Phosphatase Total Protein 6.1 Albumin 3.0 L Globulin 3.10 Albumin/Globulin 0.96 Ratio Rapid Plasma REACTIVE H Reagin RPR Titer 1:32 H Additional Testing Magnesium Level 2.2 1.9 Hepatitis B NEGATIVE Surface Antigen Blood Gas Blood arterial Specimen Source Arterial Blood 09/24/2018 1:21:2 Date Drawn 9 PM Arterial Blood pH 7.341 L (Temp corrected) Arterial Blood 31.2 L pCO2 (Temp correct) Arterial Blood 215.3 H pO2 (Temp corrected) Arterial Blood 16.5 L HCO3 Arterial Blood -8.0 L Base Excess Arterial Blood 99.2 H Oxygen Saturation Al Test ACCEPTAB Arterial Blood Right Radial Gas Puncture Site Arterial 0.1 Blood Carboxyhemo globin Arterial Blood 0.6 Methemoglobin Blood Gas A-a O2 34.0 H Differential Oxyhemoglobin 98.5 Percent Blood Gas 37.0 Temperature Blood Gas 14.0 Respiration Rate Blood Gas Actual 25 Respiration Rate Blood Gas VENT - AC Modality FiO2 40.0 Blood Gas Tidal 450.0 Volume Blood Gas Low 5.0 PEEP Setting Blood Gas TM Notified Whom Blood Gas 09/24/2018 1:42:0 Notified Time 6 PM Test 09/24/18 14:45 09/24/18 15:51 09/24/18 16:20 09/24/18 18:04 Magnesium Level 2.2 4.0 H 5.1 *H Urine Color MARIA D Urine Clarity CLOUDY A Urine pH 5.0 Urine Specific 1.034 H [place] Urine Ketones NEGATIVE Urine Nitrite NEGATIVE Urine Bilirubin NEGATIVE Urine NEGATIVE Urobilinogen Urine Leukocyte NEGATIVE Esterase Urine Microscopic 40 H RBC Urine Microscopic 160 H WBC Urine Squamous FEW Epithelial Cells Urine Bacteria FEW A Urine Granular FEW A Casts Urine Mucus FEW A Urine Hemoglobin 1+ H Urine Glucose 2+ H Urine Total 3+ H Protein Urine Opiates POSITIVE Screen Urine NEGATIVE Barbiturates Urine NEGATIVE Amphetamines Screen Urine POSITIVE Benzodiazepines Screen Urine Cocaine NEGATIVE Screen Urine POSITIVE Cannabinoids Test 09/24/18 20:06 09/24/18 21:15 09/25/18 04:00 Magnesium Level 11.8 #*H 5.6 #*H 7.7 *H Sodium Level 134 L 132 L Potassium Level 4.3 4.8 Chloride Level 109 107 Carbon Dioxide 17 L 21 Level Anion Gap 8 4 L Blood Urea 9 9 Nitrogen Creatinine 0.66 0.88 Est Glomerular > 60 > 60 Filtrat Rate mL/min Glucose Level 120 114 Calcium Level 7.6 L 6.8 L Total Bilirubin 0.4 Direct Bilirubin 0.00 Indirect 0.4 Bilirubin Aspartate Amino 39 Transf (AST/SGOT) Alanine 18 Aminotransferase (ALT/SGPT) Alkaline 121 Phosphatase Total Protein 5.8 L Albumin 2.7 L Globulin 3.10 Albumin/Globulin 0.87 Ratio White Blood Count 18.5 #H Red Blood Count 3.27 #L Hemoglobin 9.5 #L Hematocrit 29.2 #L Mean Corpuscular 89.3 Volume Mean Corpuscular 29.1 Hemoglobin Mean Corpuscular 32.5 Hemoglobin Concen t Red Cell 14.2 Distribution Width Platelet Count 178 Mean Platelet 10.3 Volume Immature 0.600 H Granulocytes % Neutrophils % 83.0 H Lymphocytes % 9.9 L Monocytes % 6.3 Eosinophils % 0.0 Basophils % 0.2 Nucleated Red 0.0 Blood Cells % Immature 0.110 H Granulocytes # Neutrophils # 15.3 H Lymphocytes # 1.8 Monocytes # 1.2 H Eosinophils # 0.0 Basophils # 0.0 Nucleated Red 0.0 Blood Cells # Home Meds Unable to Obtain Active Prescriptions or Reported Meds Medications Current Medications Levetiracetam 750 mg/Dextrose 107.5 ml @ 430 mls/hr Q12 IVPB Last administered on 09/25/18at 09:15; Admin Dose 430 MLS/HR; Start 09/24/18 at 23:30 Cefepime HCl 50 ml @ 100 mls/hr Q12 IVPB Last administered on 09/25/18at 09:15; Admin Dose 100 MLS/HR; Start 09/24/18 at 13:00 Pantoprazole (Protonix Iv) 40 mg DAILY@06 IV Last administered on 09/25/18at 05:13; Admin Dose 40 MG; Start 09/25/18 at 06:00 Oxycodone/ Acetaminophen (Percocet (5/ 325)) 2 tab Q4H PRN PO .PAIN 7-10; Start 09/24/18 at 14:00 Ibuprofen (Motrin) 600 mg Q6 PO ; Start 09/24/18 at 18:00 Lanolin (Lanolin Hpa) 1 applic BEDSIDE MEDICATION PRN TOP .NIPPLES; Start 09/24/18 at 14:00 Diphtheria/ Tetanus/Acell Pertussis (Adacel) 0.5 ml ONCE ONCE IM* ; Start 09/27/18 at 09:00; Stop 09/27/18 at 09:01 Oxytocin/Lactated Ringer's 500 ml @ 0 mls/hr ONCE PRN IV .VAGINAL BLEEDING; Start 09/24/18 at 14:00 Methylergonovine Maleate (Methergine) 0.2 mg ONCE PRN IM .VAGINAL BLEEDING; Start 09/24/18 at 14:00 Carboprost Tromethamine (Hemabate) 250 mcg ONCE PRN IM .VAGINAL BLEEDING; Start 09/24/18 at 14:00 Misoprostol (Cytotec) 1,000 mcg ONCE PRN [place] .VAGINAL BLEEDING; Start 09/24/18 at 14:00 Lorazepam (Ativan) 1 mg Q1H PRN IV SEIZURES; Start 09/24/18 at 15:00 Fentanyl 100 ml @ 2.5 mls/hr TITRATE IV Last administered on 09/25/18at 09:35; Admin Dose 10 MLS/HR; Start 09/24/18 at 15:30 Midazolam HCl 50 ml @ 1 mls/hr TITRATE IV Last administered on 09/25/18at 06:53; Admin Dose 6 MLS/HR; Start 09/24/18 at 16:30 Propofol 100 ml @ 2.04 mls/hr Q12H IV Last administered on 09/25/18at 03:07; Admin Dose 12.24 MLS/HR; Start 09/24/18 at 15:30 Magnesium Sulfate 500 ml @ 37.5 mls/hr [id number] IV Last administered on 09/25/18at 05:22; Admin Dose 37.5 MLS/HR; Start 09/25/18 at 05:05 Assessment/Plan Hospital Course (Demo Recall) Assessment and plan: 22-year-old female past medical history of being presently 30 weeks , who arrived to the emergency room after having seizure activity likely secondary to eclampsia, now status post emergency , presently intubated and sedated. # Seizure activity: Again likely secondary to eclampsia and again patient had emergency postop day #1. Again patient currently had no care during this (and may in fact have been unaware of the ) -For now continue Keppra and Ativan as ordered by primary team - neuro checks every 4 hours follow-up further recommendations from neurology consult -Continue magnesium as ordered by primary FLORIST HELPER team #Respiratory distress: Again intubated for airway protection secondary to seizure activity both before and after the emergency section -Continue mechanical ventilation via pulmonary recommendations, monitor #Status post resection: Again patient was approximately 30 weeks before the emergency postop day #1 -Continue post care per primary [facility] HELPER team including labs and other We will continue to follow along with you. Critical care time spent on patient care today equals 40 minutes MARYCARMEN JUAREZ Sep 25, 2018 10:53
--- NOTE | 2018-09-25 12:16 | CONSI ---
Assessment/Plan Assessment/Plan Assessment/Plan (Recall) 22yo 30 weeks F admitted in eclampsia..c/b seizures..for which neurology is consulted. now s/p emergency A focal SUPPLY CHAIN MANAGER process (ie hemorrhage) is not yet excluded.. EEG is without subclinical seizures.. RPR + P: Head CT w/ and w/o contrast when medically able Wean sedating medications as tolerated OK to continue Keppra as ordered for now Ativan iv prn prolonged seizure or cluster Eclampsia, syphyllis and other medical management per primary Will follow clinically Consultation Date/Type/Reason Admit Date/Time Sep 24, 2018 at 10:30 Type of Consult Neurology Reason for Consultation seizures Requesting Provider: MARYCARMEN JUAREZ Date/Time of Note DATE: 09/25/18 TIME: 12:07 Hx of Present Illness Patient is currently intubated and sedated..unable to contribute a Hx. It is elsewhere noted: 22-year-old female past medical history of being presently 30 weeks , who arrived to the emergency room after having seizure activity. Most of the information is obtained upon discussion with the rehab consultant teams as the patient is presently intubated and sedated. Earlier today patient apparently had seizure activity at home. Apparently the patient has not had any care. There was concern so patient came to the ER. She was witnessed to have another seizure activity in the ER and the ER team called the EMOTIONAL DISABILITIES TEACHER team to come about with the patient and also patient was given mag sulfate at that time. Patient also altered mental status, thought to be likely secondary to postictal state from the seizure activity in the ER. Because of seizures patient had an emergency done. Postoperatively patient was extubated transferred to ICU, but the patient had another seizure, a witnessed grand mal seizure. It was decided to electively intubate the patient. Full review of systems cannot be obtained at this time. Presently patient is getting IV Keppra, and received Ativan short time ago. Subjective hx not possible: pt non-verbal, pt critical Objective Exam Vitals Vital Signs Date Temp Pulse Resp B/P (MAP) Pulse Ox O2 O2 Flow FiO2 Time Delivery Rate 09/25/18 97.5 14 90/47 (99) 100 Mechanical 12:00 Ventilator 09/25/18 61 11:00 09/25/18 30 05:37 Intake and Output 09/24/18 09/24/18 09/25/18 1515:00 23:00 07:00 IntakeIntake Total 110 ml 623.66 ml 560.42 ml OutputOutput Total 210 ml 665 ml 805 ml BalanceBalance -100 ml -41.34 ml -244.58 ml Exam PE: Gen Appearance: No Apparent Distress HEENT: Intubated Cardiovascular: Regular rate Abdomen: Soft Extremities: Dry NE: The patient was comatose. Cranial nerve examination was limited by mental status. Pupils were equal and reactive to light. There was no afferent pupillary defect. Funduscopic examination was limited. Face was grossly symmetric, w/ present corneal and cough reflexes. Tone was normal. Muscle bulk was normal. I did not see fasciculations. The patient withdrew to noxious stimulation x 4. Coordination and gait testing was limited by mental status. Arm and leg reflexes were symmetric. Chambers's sign was absent. Plantar responses were flexor. Results Result Diagram: 09/25/18 0400 09/25/18 0400 Results 24hrs Laboratory Tests Test 09/24/18 12:13 09/24/18 13:34 09/24/18 14:07 09/24/18 14:45 White Blood Count 23.2 #H Red Blood Count 4.38 Hemoglobin 12.8 Hematocrit 38.8 Mean Corpuscular 88.6 Volume Mean Corpuscular 29.2 Hemoglobin Mean Corpuscular 33.0 Hemoglobin Concen t Red Cell 13.9 Distribution Width Platelet Count 194 Mean Platelet 11.0 H Volume Immature 1.600 H Granulocytes % Neutrophils % 89.8 H Lymphocytes % 5.7 L Monocytes % 2.5 Eosinophils % 0.1 Basophils % 0.3 Nucleated Red 0.0 Blood Cells % Immature 0.370 H Granulocytes # Neutrophils # 20.9 H Lymphocytes # 1.3 Monocytes # 0.6 Eosinophils # 0.0 Basophils # 0.1 Nucleated Red 0.0 Blood Cells # Magnesium Level 2.2 1.9 2.2 Hepatitis B NEGATIVE Surface Antigen Blood Gas Blood arterial Specimen Source Arterial Blood 09/24/2018 1:21:2 Date Drawn 9 PM Arterial Blood pH 7.341 L (Temp corrected) Arterial Blood 31.2 L pCO2 (Temp correct) Arterial Blood 215.3 H pO2 (Temp corrected) Arterial Blood 16.5 L HCO3 Arterial Blood -8.0 L Base Excess Arterial Blood 99.2 H Oxygen Saturation Al Test ACCEPTAB Arterial Blood Right Radial Gas Puncture Site Arterial 0.1 Blood Carboxyhemo globin Arterial Blood 0.6 Methemoglobin Blood Gas A-a O2 34.0 H Differential Oxyhemoglobin 98.5 Percent Blood Gas 37.0 Temperature Blood Gas 14.0 Respiration Rate Blood Gas Actual 25 Respiration Rate Blood Gas VENT - AC Modality FiO2 40.0 Blood Gas Tidal 450.0 Volume Blood Gas Low 5.0 PEEP Setting Blood Gas TM Notified Whom Blood Gas 09/24/2018 1:42:0 Notified Time 6 PM Test 09/24/18 15:51 09/24/18 16:20 09/24/18 18:04 09/24/18 20:06 Magnesium Level 4.0 H 5.1 *H 11.8 #*H Urine Color MARIA D Urine Clarity CLOUDY A Urine pH 5.0 Urine Specific 1.034 H [place] Urine Ketones NEGATIVE Urine Nitrite NEGATIVE Urine Bilirubin NEGATIVE Urine NEGATIVE Urobilinogen Urine Leukocyte NEGATIVE Esterase Urine Microscopic 40 H RBC Urine Microscopic 160 H WBC Urine Squamous FEW Epithelial Cells Urine Bacteria FEW A Urine Granular FEW A Casts Urine Mucus FEW A Urine Hemoglobin 1+ H Urine Glucose 2+ H Urine Total 3+ H Protein Urine Opiates POSITIVE Screen Urine NEGATIVE Barbiturates Urine NEGATIVE Amphetamines Screen Urine POSITIVE Benzodiazepines Screen Urine Cocaine NEGATIVE Screen Urine POSITIVE Cannabinoids Test 09/24/18 21:15 09/25/18 04:00 09/25/18 10:19 Sodium Level 134 L 132 L Potassium Level 4.3 4.8 Chloride Level 109 107 Carbon Dioxide 17 L 21 Level Anion Gap 8 4 L Blood Urea 9 9 Nitrogen Creatinine 0.66 0.88 Est Glomerular > 60 > 60 Filtrat Rate mL/min Glucose Level 120 114 Calcium Level 7.6 L 6.8 L Magnesium Level 5.6 #*H 7.7 *H 7.4 *H Total Bilirubin 0.4 Direct Bilirubin 0.00 Indirect 0.4 Bilirubin Aspartate Amino 39 Transf (AST/SGOT) Alanine 18 Aminotransferase (ALT/SGPT) Alkaline 121 Phosphatase Total Protein 5.8 L Albumin 2.7 L Globulin 3.10 Albumin/Globulin 0.87 Ratio White Blood Count 18.5 #H Red Blood Count 3.27 #L Hemoglobin 9.5 #L Hematocrit 29.2 #L Mean Corpuscular 89.3 Volume Mean Corpuscular 29.1 Hemoglobin Mean Corpuscular 32.5 Hemoglobin Concen t Red Cell 14.2 Distribution Width Platelet Count 178 Mean Platelet 10.3 Volume Immature 0.600 H Granulocytes % Neutrophils % 83.0 H Lymphocytes % 9.9 L Monocytes % 6.3 Eosinophils % 0.0 Basophils % 0.2 Nucleated Red 0.0 Blood Cells % Immature 0.110 H Granulocytes # Neutrophils # 15.3 H Lymphocytes # 1.8 Monocytes # 1.2 H Eosinophils # 0.0 Basophils # 0.0 Nucleated Red 0.0 Blood Cells # Past Medical History reviewed Home Meds Unable to Obtain Active Prescriptions or Reported Meds Medications Current Medications Levetiracetam 750 mg/Dextrose 107.5 ml @ 430 mls/hr Q12 IVPB Last administered on 09/25/18at 09:15; Admin Dose 430 MLS/HR; Start 09/24/18 at 23:30 Cefepime HCl 50 ml @ 100 mls/hr Q12 IVPB Last administered on 09/25/18at 09:15; Admin Dose 100 MLS/HR; Start 09/24/18 at 13:00 Oxycodone/ Acetaminophen (Percocet (5/ 325)) 2 tab Q4H PRN PO .PAIN 7-10; Start 09/24/18 at 14:00 Ibuprofen (Motrin) 600 mg Q6 PO ; Start 09/24/18 at 18:00 Lanolin (Lanolin Hpa) 1 applic BEDSIDE MEDICATION PRN TOP .NIPPLES; Start 09/24/18 at 14:00 Diphtheria/ Tetanus/Acell Pertussis (Adacel) 0.5 ml ONCE ONCE IM* ; Start 09/27/18 at 09:00; Stop 09/27/18 at 09:01 Oxytocin/Lactated Ringer's 500 ml @ 0 mls/hr ONCE PRN IV .VAGINAL BLEEDING; Start 09/24/18 at 14:00 Methylergonovine Maleate (Methergine) 0.2 mg ONCE PRN IM .VAGINAL BLEEDING; Start 09/24/18 at 14:00 Carboprost Tromethamine (Hemabate) 250 mcg ONCE PRN IM .VAGINAL BLEEDING; Start 09/24/18 at 14:00 Misoprostol (Cytotec) 1,000 mcg ONCE PRN [place] .VAGINAL BLEEDING; Start 09/24/18 at 14:00 Lorazepam (Ativan) 1 mg Q1H PRN IV SEIZURES; Start 09/24/18 at 15:00 Fentanyl 100 ml @ 2.5 mls/hr TITRATE IV Last administered on 09/25/18at 09:35; Admin Dose 10 MLS/HR; Start 09/24/18 at 15:30 Midazolam HCl 50 ml @ 1 mls/hr TITRATE IV Last administered on 09/25/18at 06:53; Admin Dose 6 MLS/HR; Start 09/24/18 at 16:30 Propofol 100 ml @ 2.04 mls/hr Q12H IV Last administered on 09/25/18at 11:52; Admin Dose 12.24 MLS/HR; Start 09/24/18 at 15:30 Magnesium Sulfate 500 ml @ 37.5 mls/hr [id number] IV Last administered on 09/25/18at 05:22; Admin Dose 37.5 MLS/HR; Start 09/25/18 at 05:05 Famotidine (Pepcid Iv) 20 mg BID IV ; Start 09/26/18 at 09:00 Allergies: Coded Allergies: Unknown: Unable to obtain (Unverified , 09/24/18) 09/24 @ 1040am- per rn, unable to obtain allergy info at this time Past Surgical History Past Surgical Hx: other (Unknown) Social History Alcohol Use: other (Unknown) Smoking Status: Unknown if ever smoked Drug Use: other (Unknown) MAURI RANKIN Sep 25, 2018 12:16
--- NOTE | 2018-09-25 18:36 | QN ---
Documentation Comment POD#1 Patient is intubated and sedated. No family member at bedside to obtain further information. Physical Exam: Heart: RRR Lungs: Clear to auscultation (B/L), no rales, ronchi or wheezing ABD: +BS. Soft. Uterus 2 cm below umbilicus Incision: Dry dressing LE: Mod edema. No clubbing, cyanosis. 22 years old with eclampsia underwent delivery yesterday with unknown gestational age possible 30 weeks. - AF, VSS - Magnesium sulfate discontinued at 11 AM this morning - Baby is in NICU - Continue care - She is being followed by neurologist and hospitalist, please see the note for detail GENE DAILEY Sep 25, 2018 18:36
[2018-09-25] MEDS ORDERED: SOD CHLORIDE 0.9% 100 ML ONE (20:04)
[2018-09-25] MEDS ORDERED: IOHEXOL 300MG/ML 150 ML BTL ONE (20:04)
[2018-09-26] VITALS (34 sets, daily range): BP systolic 90–156; BP diastolic 62–108; PULSE 47–104; RESP 12–23
[2018-09-26] MEDS: PROPOFOL 100 ML IV SCH ×2 (03:09→06:49)
[2018-09-26] MEDS: FENTAnyl (DRIP) 1000 mcg/100mL 100 ML IV SCH (05:35)
[2018-09-26] MEDS: IBUPROFEN 600 MG TAB PO SCH ×3 (06:00→15:36)
[2018-09-26] MEDS: CEFEPIME 1GM/50 ML (PMX) 50 ML IVPB SCH ×2 (07:54→21:57)
--- NOTE | 2018-09-26 08:19 | CONS ---
Assessment/Plan Assessment/Plan Assessment/Plan (Daily) Chest x-ray was reviewed from this morning which is totally clear. Patient is currently on assist control of 14, tidal volume 450, PEEP of 5, 30% FiO2. Patient has been on propofol at 50 mics per kilogram per minute, fentanyl 100 mics per hour, both medications are on hold. Assessment and recommendations; 1. Patient admitted with preeclampsia underwent emergent due to severe seizure activity. Patient also developed seizures postdelivery requiring intubation for airway protection and altered mental status. 2. Mild leukocytosis, likely from seizures. Patient did have a very scant right perihilar questionable infiltrate with totally clear chest x-ray now. 3. No history of any other comorbid illnesses. No history of any hypertension or seizures. Extubate the patient. Because of severe anxiety CPAP trial is not recommended. Continue cefepime for another 24 hours. Consultation Date/Type/Reason Admit Date/Time Sep 24, 2018 at 10:30 Initial Consult Date 09/24/18 Type of Consult Pulmonary/critical care Patient is a 22-year-old lady who was third trimester came into the ER with seizures. Because of seizures patient had emergency done. Postoperatively patient was extubated transferred to ICU with the patient had a witnessed grand mal seizure. It was decided to electively intubate the patient. Past medical history; next 1. today. Medications; reviewed. Allergies; unknown. Social history, family history, occupational history is not available. Review of system; unable to be obtained. General exam; patient is not awake having seizures. Controlled with Ativan. Requesting Provider: MARYCARMEN JUAREZ Date/Time of Note DATE: 09/26/18 TIME: 08:16 24 HR Interval Summary Free Text/Dictation Patient's condition is critical but stable. No further seizure activity reported off Versed drip since yesterday morning. Patient has remained hemodynamically stable. General exam; young woman, orally intubated, off sedation and awake and fairly responsive. Currently no distress. Patient though appears anxious. Exam/Review of Systems Exam Vitals Vital Signs Date Temp Pulse Resp B/P (MAP) Pulse Ox O2 O2 Flow FiO2 Time Delivery Rate 09/26/18 54 14 103/62 100 Mechanical 07:00 (76) Ventilator 09/26/18 30 05:00 09/26/18 97.8 04:00 Intake and Output 09/25/18 09/25/18 09/26/18 1515:00 23:00 07:00 IntakeIntake Total 493.546 ml 348.98 ml 214.64 ml OutputOutput Total 1250 ml 655 ml 720 ml BalanceBalance -756.454 ml -306.02 ml -505.36 ml Exam H EENT exam; supple neck, no JVD. No lymphadenopathy. Midline trachea. No thyromegaly. Orally intubated. Patient has good dentition. No neck masses. Chest exam; clear to auscultation. S1-S2 audible, no murmurs. Regular rhythm. Abdomen exam; soft, midline lower abdominal dressing in place. Bowel sounds are audible. Abdomen is nontender and nondistended. No organomegaly. Extremity exam; no peripheral edema clubbing. Pulses 2+. BI TECHNICAL LEAD exam; no focal motor deficit. Results Result Diagram: 09/25/18 0400 09/26/18 0459 Results 24hrs Laboratory Tests Test 09/25/18 10:19 09/26/18 04:59 Magnesium Level 7.4 *H 3.6 #H Sodium Level 138 Potassium Level 4.3 Chloride Level 112 H Carbon Dioxide Level 26 Anion Gap 0 L Blood Urea Nitrogen 12 Creatinine 0.78 Est Glomerular Filtrat Rate mL/min > 60 Glucose Level 70 # Calcium Level 7.1 L Medications Medication Current Medications Levetiracetam 750 mg/Dextrose 107.5 ml @ 430 mls/hr Q12 IVPB Last administered on 09/25/18at 22:04; Admin Dose 430 MLS/HR; Start 09/24/18 at 23:30 Cefepime HCl 50 ml @ 100 mls/hr Q12 IVPB Last administered on 09/26/18at 07:54; Admin Dose 100 MLS/HR; Start 09/24/18 at 13:00 Oxycodone/ Acetaminophen (Percocet (5/ 325)) 2 tab Q4H PRN PO .PAIN 7-10; Start 09/24/18 at 14:00 Ibuprofen (Motrin) 600 mg Q6 PO ; Start 09/24/18 at 18:00 Lanolin (Lanolin Hpa) 1 applic BEDSIDE MEDICATION PRN TOP .NIPPLES; Start 09/24/18 at 14:00 Diphtheria/ Tetanus/Acell Pertussis (Adacel) 0.5 ml ONCE ONCE IM* ; Start 09/27/18 at 09:00; Stop 09/27/18 at 09:01 Oxytocin/Lactated Ringer's 500 ml @ 0 mls/hr ONCE PRN IV .VAGINAL BLEEDING; Start 09/24/18 at 14:00 Methylergonovine Maleate (Methergine) 0.2 mg ONCE PRN IM .VAGINAL BLEEDING; Start 09/24/18 at 14:00 Carboprost Tromethamine (Hemabate) 250 mcg ONCE PRN IM .VAGINAL BLEEDING; Start 09/24/18 at 14:00 Misoprostol (Cytotec) 1,000 mcg ONCE PRN [place] .VAGINAL BLEEDING; Start 09/24/18 at 14:00 Lorazepam (Ativan) 1 mg Q1H PRN IV SEIZURES; Start 09/24/18 at 15:00 Fentanyl 100 ml @ 2.5 mls/hr TITRATE IV Last administered on 09/26/18at 05:35; Admin Dose 10 MLS/HR; Start 09/24/18 at 15:30 Midazolam HCl 50 ml @ 1 mls/hr TITRATE IV Last administered on 09/25/18at 06:53; Admin Dose 6 MLS/HR; Start 09/24/18 at 16:30 Propofol 100 ml @ 2.04 mls/hr Q12H IV Last administered on 09/26/18at 06:49; Admin Dose 20.4 MLS/HR; Start 09/24/18 at 15:30 Famotidine (Pepcid Iv) 20 mg BID IV ; Start 09/26/18 at 09:00 KIMO ALVAREZ Sep 26, 2018 08:19
[2018-09-26] MEDS: FAMOTIDINE 20 MG INJ IV SCH ×2 (09:00→21:00)
--- NOTE | 2018-09-26 09:35 | CONS ---
Consult Date/Type/Reason Admit Date/Time Sep 24, 2018 at 10:30 Initial Consult Date 09/24/18 Requesting Provider: MARYCARMEN JUAREZ Date/Time of Note DATE: 09/26/18 TIME: 09:32 Subjective Patient extubated a short time ago. Seen by pulmonary team this morning. Otherwise no other acute events overnight. Objective Vitals Vital Signs Date Temp Pulse Resp B/P (MAP) Pulse Ox O2 O2 Flow FiO2 Time Delivery Rate 09/26/18 87 16 119/71 95 09:00 (87) 09/26/18 Room Air 08:15 09/26/18 97.6 08:00 09/26/18 30 05:00 Intake and Output 09/25/18 09/25/18 09/26/18 1515:00 23:00 07:00 IntakeIntake Total 493.546 ml 348.98 ml 214.64 ml OutputOutput Total 1250 ml 655 ml 720 ml BalanceBalance -756.454 ml -306.02 ml -505.36 ml Exam Gen: Lying in bed, answering questions HEENT exam: Pupils are small bilaterally. Neck: supple neck, no JVD. No lymphadenopathy. Midline trachea. No thyromegaly. Res; clear to auscultation. CV: S1-S2 audible, no murmurs. Regular rhythm. Abdomen exam; soft, midline dressing in place. Bowel sounds are sluggish. Extremity exam; no peripheral edema. PLUMBER PIPE FITTING exam; no focal deficits Results/Medications Result Diagram: 09/25/18 0400 09/26/18 0459 Results 24 hrs Laboratory Tests Test 09/25/18 10:19 09/26/18 04:59 Magnesium Level 7.4 *H 3.6 #H Sodium Level 138 Potassium Level 4.3 Chloride Level 112 H Carbon Dioxide Level 26 Anion Gap 0 L Blood Urea Nitrogen 12 Creatinine 0.78 Est Glomerular Filtrat Rate mL/min > 60 Glucose Level 70 # Calcium Level 7.1 L Home Meds Unable to Obtain Active Prescriptions or Reported Meds Medications Current Medications Levetiracetam 750 mg/Dextrose 107.5 ml @ 430 mls/hr Q12 IVPB Last administered on 09/25/18at 22:04; Admin Dose 430 MLS/HR; Start 09/24/18 at 23:30 Cefepime HCl 50 ml @ 100 mls/hr Q12 IVPB Last administered on 09/26/18at 07:54; Admin Dose 100 MLS/HR; Start 09/24/18 at 13:00 Oxycodone/ Acetaminophen (Percocet (5/ 325)) 2 tab Q4H PRN PO .PAIN 7-10; Start 09/24/18 at 14:00 Ibuprofen (Motrin) 600 mg Q6 PO ; Start 09/24/18 at 18:00 Lanolin (Lanolin Hpa) 1 applic BEDSIDE MEDICATION PRN TOP .NIPPLES; Start 09/24/18 at 14:00 Diphtheria/ Tetanus/Acell Pertussis (Adacel) 0.5 ml ONCE ONCE IM* ; Start at 09:00; Stop 09/27/18 at 09:01 Oxytocin/Lactated Ringer's 500 ml @ 0 mls/hr ONCE PRN IV .VAGINAL BLEEDING; Start 09/24/18 at 14:00 Methylergonovine Maleate (Methergine) 0.2 mg ONCE PRN IM .VAGINAL BLEEDING; Start 09/24/18 at 14:00 Carboprost Tromethamine (Hemabate) 250 mcg ONCE PRN IM .VAGINAL BLEEDING; Start 09/24/18 at 14:00 Misoprostol (Cytotec) 1,000 mcg ONCE PRN [place] .VAGINAL BLEEDING; Start 09/24/18 at 14:00 Lorazepam (Ativan) 1 mg Q1H PRN IV SEIZURES; Start 09/24/18 at 15:00 Fentanyl 100 ml @ 2.5 mls/hr TITRATE IV Last administered on 09/26/18at 05:35; Admin Dose 10 MLS/HR; Start 09/24/18 at 15:30 Midazolam HCl 50 ml @ 1 mls/hr TITRATE IV Last administered on 09/25/18at 06:53; Admin Dose 6 MLS/HR; Start 09/24/18 at 16:30 Propofol 100 ml @ 2.04 mls/hr Q12H IV Last administered on 09/26/18at 06:49; Admin Dose 20.4 MLS/HR; Start 09/24/18 at 15:30 Famotidine (Pepcid Iv) 20 mg BID IV ; Start 09/26/18 at 09:00 Assessment/Plan Hospital Course (Demo Recall) Assessment and plan: 22-year-old female past medical history of being presently 30 weeks , who arrived to the emergency room after having seizure activity likely secondary to eclampsia, now status post emergency , presently intubated and sedated. # Seizure activity: Again likely secondary to eclampsia and again patient had emergency postop day # 2. Again patient currently had no care during this (and may in fact have been unaware of the ) -For now continue Keppra and Ativan as ordered by primary team - neuro checks every 4 hours follow-up further recommendations from neurology consult -Continue magnesium as ordered by primary PERL DEVELOPER team -Continue evaluation and possible treatment for syphilis per primary team #Respiratory distress: Extubated this morning, before that patient was intubated for airway protection secondary to seizure activity both before and after the emergency section -Continue current antibiotics, follow-up further pulmonary recs #Status post resection: Again patient was approximately 30 weeks before the emergency postop day # 2 -Continue post care per primary PERL DEVELOPER team including labs. We will continue to follow along with you. Critical care time spent on patient care today equals 40 minutes MARYCARMEN JUAREZ Sep 26, 2018 09:35
[2018-09-26] MEDS: LEVETIRACETAM IV 750 MG in DEXTROSE 5% 100 ML IVPB SCH ×2 (09:39→21:57)
--- NOTE | 2018-09-26 10:54 | CONS ---
Assessment/Plan Assessment/Plan Assessment/Plan (Recall) 22yo 30 weeks F admitted in eclampsia..c/b seizures..for which neurology is consulted. now s/p emergency Head CT w/ and w/o contrast is unremarkable. EEG is without subclinical seizures.. RPR + P: OK to continue Keppra as ordered in the short-term, with plan to d/c in 1 week i f no adnl seizures noted Ativan iv prn prolonged seizure or cluster Eclampsia, syphyllis and other medical management per primary Will follow clinically Consultation Date/Type/Reason Admit Date/Time Sep 24, 2018 at 10:30 Type of Consult Neurology Reason for Consultation seizures Requesting Provider: MARYCARMEN JUAREZ Date/Time of Note DATE: 09/26/18 TIME: 10:53 24 HR Interval Summary Free Text/Dictation s/p extubation Exam/Review of Systems Exam Vitals Vital Signs Date Temp Pulse Resp B/P (MAP) Pulse Ox O2 O2 Flow FiO2 Time Delivery Rate 09/26/18 87 16 119/71 95 09:00 (87) 09/26/18 Room Air 08:15 09/26/18 97.6 08:00 09/26/18 30 05:00 Intake and Output 09/25/18 09/25/18 09/26/18 1515:00 23:00 07:00 IntakeIntake Total 493.546 ml 348.98 ml 214.64 ml OutputOutput Total 1250 ml 655 ml 720 ml BalanceBalance -756.454 ml -306.02 ml -505.36 ml Exam PE: Gen Appearance: No Apparent Distress HEENT: Normocephalic Cardiovascular: Regular rate Abdomen: Soft Extremities: Dry NE: The patient was alert and oriented. Language was normal. Fund of knowledge was normal. Pupils were equal and reactive to light. There was no afferent pupillary defect. Visual puri were normal. Funduscopic examination was limited. Extra-ocular movements were full. Ptosis was absent. There was no nystagmus. Facial sensation was normal. Face was symmetric with normal strength. Hearing was intact. Palate movements were normal. Neck strength was normal. There was normal tongue bulk and speed of movement. Tone was normal. Muscle bulk was normal. I did not see fasciculations. Arms and legs were strong. Vibration sensation was normal. Temperature and pinprick sensation was normal. Rapid alternating movements were normal. There was no dysmetria. There was no intention tremor. Gait was deferred due to bedrest. Arm and leg reflexes were symmetric. Chambers's sign was absent. Plantar responses were flexor. Results Result Diagram: 09/25/18 0400 09/26/18 0459 Results 24hrs Laboratory Tests Test 09/26/18 04:59 Sodium Level 138 Potassium Level 4.3 Chloride Level 112 H Carbon Dioxide Level 26 Anion Gap 0 L Blood Urea Nitrogen 12 Creatinine 0.78 Est Glomerular Filtrat Rate mL/min > 60 Glucose Level 70 # Calcium Level 7.1 L Magnesium Level 3.6 #H Medications Medication Current Medications Levetiracetam 750 mg/Dextrose 107.5 ml @ 430 mls/hr Q12 IVPB Last administered on 09/26/18at 09:39; Admin Dose 430 MLS/HR; Start 09/24/18 at 23:30 Cefepime HCl 50 ml @ 100 mls/hr Q12 IVPB Last administered on 09/26/18at 07:54; Admin Dose 100 MLS/HR; Start 09/24/18 at 13:00 Oxycodone/ Acetaminophen (Percocet (5/ 325)) 2 tab Q4H PRN PO .PAIN 7-10; Start 09/24/18 at 14:00 Ibuprofen (Motrin) 600 mg Q6 PO ; Start 09/24/18 at 18:00 Lanolin (Lanolin Hpa) 1 applic BEDSIDE MEDICATION PRN TOP .NIPPLES; Start 09/24/18 at 14:00 Diphtheria/ Tetanus/Acell Pertussis (Adacel) 0.5 ml ONCE ONCE IM* ; Start 09/27/18 at 09:00; Stop 09/27/18 at 09:01 Oxytocin/Lactated Ringer's 500 ml @ 0 mls/hr ONCE PRN IV .VAGINAL BLEEDING; Start 09/24/18 at 14:00 Methylergonovine Maleate (Methergine) 0.2 mg ONCE PRN IM .VAGINAL BLEEDING; Start 09/24/18 at 14:00 Carboprost Tromethamine (Hemabate) 250 mcg ONCE PRN IM .VAGINAL BLEEDING; Start 09/24/18 at 14:00 Misoprostol (Cytotec) 1,000 mcg ONCE PRN [place] .VAGINAL BLEEDING; Start 09/24/18 at 14:00 Lorazepam (Ativan) 1 mg Q1H PRN IV SEIZURES; Start 09/24/18 at 15:00 Fentanyl 100 ml @ 2.5 mls/hr TITRATE IV Last administered on 09/26/18at 05:35; Admin Dose 10 MLS/HR; Start 09/24/18 at 15:30 Midazolam HCl 50 ml @ 1 mls/hr TITRATE IV Last administered on 09/25/18at 06:53; Admin Dose 6 MLS/HR; Start 09/24/18 at 16:30 Propofol 100 ml @ 2.04 mls/hr Q12H IV Last administered on 09/26/18at 06:49; Admin Dose 20.4 MLS/HR; Start 09/24/18 at 15:30 Famotidine (Pepcid Iv) 20 mg BID IV ; Start 09/26/18 at 09:00 MAURI RANKIN Sep 26, 2018 10:54
--- NOTE | 2018-09-26 19:14 | PN ---
Date/Time of Note Date/Time of Note DATE: 09/26/18 TIME: 19:06 OB Subjective Subjective Subjective Denies any complaint. Has appetite to eat. Has passed flatus. Reports feel ing hungry. Baby is in NICU. Is not breast-feeding. Vaginal bleeding in the amount of menses. RN report in ICU patient has been extubated this morning OB Objective Objective Objective General appearance: Alert and oriented x4. Frustrated and anxious Breast: No evidence of engorgement, mastitis or fissure Lungs: Clear to auscultation bilaterally CV: RRR Abdomen: Soft, Appropriate tenderness in the section noted, Incision Clean, dry and intact Extremities: no calf tenderness , no click ,no edema VS - Last 72 Hours, by Label Date Temp Pulse Resp B/P (MAP) Pulse Ox O2 O2 Flow FiO2 Time Delivery Rate 09/26/18 2.0 17:25 09/26/18 84 15 134/97 95 17:00 (109) 09/26/18 77 13 137/96 95 Room Air 16:00 (110) 09/26/18 72 16:00 09/26/18 77 13 147/95 95 15:00 (112) 09/26/18 100 17 144/98 95 14:00 (113) 09/26/18 84 18 156/89 94 13:00 (111) 09/26/18 104 12:00 09/26/18 98.0 84 18 135/90 94 Room Air 12:00 (105) 09/26/18 92 14 143/97 95 11:00 (112) 09/26/18 14 135/90 95 10:00 (105) 09/26/18 87 16 119/71 95 09:00 (87) 09/26/18 53 18 96 30 08:20 09/26/18 16 95 Room Air 08:15 09/26/18 30 08:10 09/26/18 97.6 57 14 107/63 100 Mechanical 08:00 (78) Ventilator 09/26/18 56 08:00 09/26/18 54 14 103/62 100 Mechanical 07:00 (76) Ventilator 09/26/18 52 14 95 30 07:00 09/26/18 54 16 104/64 100 06:30 (77) 09/26/18 62 14 114/71 100 Mechanical 06:00 (85) Ventilator 09/26/18 55 14 109/74 100 05:30 (86) 09/26/18 52 14 100 30 05:00 09/26/18 79 16 111/78 100 Mechanical 05:00 (89) Ventilator 09/26/18 52 14 106/70 100 04:30 (82) 09/26/18 97.8 57 15 111/78 100 Mechanical 04:00 (89) Ventilator 09/26/18 57 04:00 09/26/18 56 15 112/78 100 03:30 (89) 09/26/18 51 14 112/72 100 Mechanical 03:00 (85) Ventilator 09/26/18 51 14 100 30 02:50 09/26/18 50 14 105/69 100 02:30 (81) 09/26/18 54 16 115/74 100 Mechanical 02:00 (88) Ventilator 09/26/18 50 14 105/70 100 01:30 (82) 09/26/18 53 16 100 30 01:00 09/26/18 74 21 90/78 (82) 100 Mechanical 01:00 Ventilator 09/26/18 47 12 108/70 100 00:30 (83) 09/26/18 30 00:00 09/26/18 96 14 109/76 100 Mechanical 00:00 (87) Ventilator 09/26/18 99 00:00 09/25/18 92 14 100 30 23:00 09/25/18 97.7 93 14 115/79 100 Mechanical 23:00 (91) Ventilator 09/25/18 92 14 108/72 100 22:00 (84) 09/25/18 91 14 100 30 21:00 09/25/18 98 14 99/64 (76) 100 21:00 09/25/18 97.5 14 105/64 100 Mechanical 20:00 (78) Ventilator 09/25/18 59 20:00 09/25/18 93 15 100 30 19:15 09/25/18 74 14 96/62 (73) 100 19:00 09/25/18 53 14 93/63 (73) 100 18:00 09/25/18 60 14 100 30 17:50 09/25/18 65 14 91/59 (70) 100 17:00 09/25/18 50 16:00 09/25/18 97.7 49 14 90/57 (68) 100 Mechanical 16:00 Ventilator 09/25/18 100 14 99/63 (75) 100 15:00 09/25/18 60 14 100 30 15:00 09/25/18 79 14 102/71 100 14:00 (81) 09/25/18 61 15 100 30 13:50 09/25/18 54 14 93/55 (68) 100 13:00 09/25/18 97.5 14 90/47 (61) 100 Mechanical 12:00 Ventilator 09/25/18 58 12:00 09/25/18 60 14 100 30 11:20 09/25/18 61 14 89/49 (62) 100 11:00 09/25/18 62 13 93/58 (70) 100 10:00 09/25/18 68 14 100 30 09:40 09/25/18 64 14 95/58 (70) 100 09:00 09/25/18 64 14 100 30 08:20 09/25/18 96.4 65 14 97/56 (70) 100 Mechanical 08:00 Ventilator 09/25/18 65 08:00 09/25/18 30 08:00 09/25/18 68 13 98/56 (70) 100 Mechanical 07:00 Ventilator 09/25/18 67 13 97/55 (69) 100 06:45 09/25/18 67 14 96/58 (71) 100 06:30 09/25/18 68 17 96/60 (72) 100 06:15 09/25/18 67 14 96/58 (71) 100 Mechanical 06:00 Ventilator 09/25/18 68 14 97/56 (70) 100 05:45 09/25/18 70 15 100 30 05:37 09/25/18 70 14 99/58 (72) 100 05:30 09/25/18 72 16 102/60 100 05:15 (74) 09/25/18 70 14 98/59 (72) 100 Mechanical 05:00 Ventilator 09/25/18 70 14 98/59 (72) 100 04:45 09/25/18 73 15 102/61 100 04:30 (75) 09/25/18 75 13 100/63 100 04:15 (75) 09/25/18 76 04:00 09/25/18 98.0 73 13 103/59 100 Mechanical 04:00 (74) Ventilator 09/25/18 76 13 96/59 (71) 100 03:45 09/25/18 77 13 97/56 (70) 100 03:30 09/25/18 75 13 97/59 (72) 100 03:15 09/25/18 76 15 100 30 03:11 09/25/18 77 14 100/59 100 Mechanical 03:00 (73) Ventilator 09/25/18 77 10 97/59 (72) 100 02:45 09/25/18 77 14 100/60 100 02:30 (73) 09/25/18 78 14 102/58 100 02:15 (73) 09/25/18 79 14 100/61 100 Mechanical 02:00 (74) Ventilator 09/25/18 79 15 100 30 01:51 09/25/18 79 13 101/62 100 01:45 (75) 09/25/18 80 14 102/59 100 01:30 (73) 09/25/18 80 13 103/56 100 01:15 (72) 09/25/18 82 12 103/63 100 Mechanical 01:00 (76) Ventilator 09/25/18 81 13 105/63 100 00:45 (77) 09/25/18 81 14 102/59 100 00:30 (73) 09/25/18 82 13 105/61 100 00:15 (76) 09/25/18 82 13 103/57 100 Mechanical 00:00 (72) Ventilator 09/25/18 83 00:00 09/24/18 84 14 100/58 100 23:45 (72) 09/24/18 85 14 101/58 100 23:30 (72) 09/24/18 85 13 100/62 100 23:15 (75) 09/24/18 87 17 100 30 23:11 09/24/18 86 13 100/63 100 Mechanical 23:00 (75) Ventilator 09/24/18 86 13 99/64 (76) 100 22:45 09/24/18 89 13 100/63 100 22:30 (75) 09/24/18 30 22:22 09/24/18 87 19 89/79 (82) 100 22:15 09/24/18 93 12 107/66 100 Mechanical 22:00 (80) Ventilator 09/24/18 92 13 102/67 100 21:45 (79) 09/24/18 95 13 107/68 100 21:30 (81) 09/24/18 97 15 109/70 100 21:15 (83) 09/24/18 95 15 100 40 21:10 09/24/18 99 12 110/77 100 Mechanical 21:00 (88) Ventilator 09/24/18 103 12 118/77 100 20:45 (91) 09/24/18 104 11 117/79 100 20:30 (92) 09/24/18 100 18 100 40 20:18 09/24/18 40 20:15 09/24/18 99 11 127/85 100 20:15 (99) 09/24/18 104 20:00 09/24/18 99.8 104 13 107/71 100 Mechanical 20:00 (83) Ventilator 09/24/18 105 12 117/75 100 19:45 (89) 09/24/18 103 13 108/74 100 19:30 (85) 09/24/18 102 13 112/79 100 19:15 (90) 09/24/18 102 17 100 40 19:14 09/24/18 102 13 113/83 100 Mechanical 19:00 (93) Ventilator 09/24/18 100 18 110/80 100 Mechanical 18:00 (90) Ventilator 09/24/18 99 18 100 40 17:45 09/24/18 100 15 121/85 17:45 (97) 09/24/18 100 17 118/94 100 Mechanical 17:30 (102) Ventilator 09/24/18 91 16 125/96 100 17:00 (106) 09/24/18 92 14 126/96 100 Mechanical 16:45 (106) Ventilator 09/24/18 97.1 93 13 130/97 100 16:30 (108) 09/24/18 96 16:00 09/24/18 100 14 100 Mechanical 15:30 Ventilator 09/24/18 101 17 100 40 15:25 09/24/18 102 13 125/97 100 15:15 (106) 09/24/18 107 17 140/106 100 Mechanical 15:00 (117) Ventilator 09/24/18 104 14 145/113 100 14:45 (124) 09/24/18 98 21 140/114 100 Mechanical 14:15 (123) Ventilator 09/24/18 40 14:00 09/24/18 76 12 139/107 100 Mechanical 13:45 (118) Ventilator 09/24/18 89 27 198/145 100 Mechanical 13:15 (162) Ventilator 09/24/18 96.0 78 14 154/113 100 Mechanical 12:45 (127) Ventilator 09/24/18 83 14 99 40 12:45 09/24/18 92 12:00 Laboratory Tests Test 09/26/18 04:59 09/26/18 14:01 Sodium Level 138 Potassium Level 4.3 Chloride Level 112 H Carbon Dioxide Level 26 Anion Gap 0 L Blood Urea Nitrogen 12 Creatinine 0.78 Est Glomerular Filtrat Rate mL/min > 60 Glucose Level 70 # Calcium Level 7.1 L Magnesium Level 3.6 #H 2.4 # OB Assessment/Plan Other Assessment: POD #2 s/p repeat section emergency for seizure disorder vs Preclampsia, was on Magnesium, now off of Mag Patient currently being seen by neurologist Had been intubated, today extubated. Doing well Recovering well U tox positive for marijuana. Baby in NICU Following up by neurologist Anemia, mild post op, asymptomatic RPR positive noted during labs . Consult ID Patient is currently stable enough to be transferred out of ICU if cleared by ICU team as well as neurologist to unit Start diet Routine postop care ADRIAN RAJPUT MD Sep 26, 2018 19:14
[2018-09-27] MEDS: IBUPROFEN 600 MG TAB PO SCH ×4 (00:12→17:01)
--- NOTE | 2018-09-27 05:56 | CONS ---
DATE OF ADMISSION: 09/24/2018 DATE OF CONSULTATION: 09/26/2018 TYPE OF CONSULTATION: Infectious Disease. REASON FOR CONSULTATION: Antibiotic management. HISTORY OF PRESENT ILLNESS: Keely Wells is a 22-year-old female who is a transfer from the [facility] Room. She was admitted combative and noncommunicative. On admission, her white count was 12. 4. Initially, it was 23.2, H and H of 11.9 and 36.0, platelet count of ____. BUN and creatinine 6/0 .65. Patient had severe preeclampsia in her third trimester . She had complete placental a bruption and eclampsia. She was taken to the operating room where general anesthesia was found to be adequate. She delivered her baby and a central line was placed in the right femoral vein. She was admitted for generalized seizure activity, status post emergent . The patient continued to exhibit seizures post-delivery requiring intubation. She is a 22-year-old female and in her third tr imester. She was transferred to the ICU where she had a grand mal seizure. It was decided to electi vely intubate the patient. She was seen in consultation by Dr. Tuttle, neurology. A head CT was orde red. She had eclampsia, syphilis, and other medical management problems. She had a seizure in the i ntensive care unit. Chest x-ray was totally clear. She was extubated and transferred to the ICU. PAST MEDICAL HISTORY: Noncontributory. SOCIAL HISTORY: She does not smoke, drink, or abuse drugs. ALLERGIES: NONE TO PENICILLIN, SULFA OR FOODS. MEDICATIONS: Per chart. REVIEW OF SYSTEMS: Noncontributory. PHYSICAL EXAMINATION: GENERAL: She is lying in bed in no acute distress. VITAL SIGNS: Stable. She is afebrile. SKIN: Without generalized rash. HEENT: Within normal limits. NECK: Supple. Lymph nodes not palpable. CHEST: Decreased breath sounds at the bases. HEART: Without murmur or gallop. ABDOMEN: Soft, nontender, without organosplenomegaly or masses. EXTREMITIES: Without cyanosis, clubbing, or edema. RECTAL AND GENITAL: Deferred. NEUROLOGIC: No focal neurological abnormalities. LABORATORY DATA: Her urine was negative. Her white count was 18.5. Of note, is the fact that her R HI was reactive, 1 to 32 and her FTA-ABS was reactive. H and H of 9.5 and 29.2 and, a platelet count 170,000. BUN and creatinine 12/0.78. Her glucose was 70. HOSPITAL COURSE: She was placed on cefepime. She was 30 weeks at the time of the . She was seen by Dr. Tuttle. She had eclampsia and noted to have syphilis. She denied any specific complaints. IMPRESSION AND PLAN: The patient is currently status post systemic inflammatory response syndrome. The patient has a positive RPR 132, which is probably secondary to syphilis; however, because of seiz ures, we have to consider the possibility of neurosyphilis. She is currently on cefepime. I think t hat would be reasonable to do a spinal tap or lumbar puncture to see if she has a positive RPR and pl eocytosis in her CSF, in which case she may have neurosyphilis. In which case her treatment would be entirely different and would either entail Ceftriaxone 1 gram q.24 hours for 14 days or high-dose pe nicillin G 2 million units q.6 hours for 14 days. I will discuss my findings with Dr. Tuttle and maryann c an decide on whether the patient should have a lumbar puncture, which I think she should. Then depyesi garcia on the findings, she should either be treated with benzathine penicillin 2.4 million units q. we ekly x3 weeks or be put on ceftriaxone 1 gram q.24 hours for 2 weeks or high-dose penicillin 2 to 3 m illion units of penicillin G IV piggyback q. 6 hours for 14 days. I will dictate my findings to the hospitalist and also to the aforementioned physicians. I put in a call to Dr. Tuttle and maryann olivas on the course of treatment and therapy. Dictated By: JEREMY DOVE MD, JD/CLEO Conf#: [id number] DID#: [id number]
[2018-09-27 07:29] VITALS: BP 124/82; PULSE 77; RESP 16
[2018-09-27] MEDS: FAMOTIDINE 20 MG INJ IV SCH ×2 (08:43→21:45)
[2018-09-27] MEDS: CEFEPIME 1GM/50 ML (PMX) 50 ML IVPB SCH (08:43)
[2018-09-27] MEDS ORDERED: DIPHTH/TET/ACEL PERTUSS (ADULT) 0.5 ML VIAL IM* ONE (09:00)
[2018-09-27] MEDS: LEVETIRACETAM IV 750 MG in DEXTROSE 5% 100 ML IVPB SCH ×2 (10:16→21:45)
--- NOTE | 2018-09-27 14:18 | CONS ---
Assessment/Plan Assessment/Plan Hospital Course (Demo Recall) Patient is alert feels good denies pain no fevers overnight. No labs. Chest x- ray yesterday revealed no acute cardiopulmonary process CT of the brain on admission revealed no acute intracranial abnormalities. Patient had a positive RPR with titer 1:32, reactive treponemal antibody. Physical examination: Well-developed well-nourished young woman who is alert in no distress. Head atraumatic normocephalic neck is supple chest rise symmetrical breath sounds clear heart S1-S2 abdomen soft bowel sounds present extremities without cyanosis Assessment: 1. 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 Systemic inflammatory response syndrome on admission 3. Status post seizure 4. Status post acute encephalopathy 5. Status post emergent Plan: We are going to change antibiotics to IV Rocephin and give her a dose of penicillin G intramuscularly, recommend lumbar puncture to rule out neurosyphilis, patient is considering it, follow neurology recommendations, check for HIV Consultation Date/Type/Reason Admit Date/Time Sep 24, 2018 at 10:30 Initial Consult Date 09/24/18 Type of Consult id Requesting Provider: MARYCARMEN JUAREZ Date/Time of Note DATE: 09/27/18 TIME: 14:18 Exam/Review of Systems Exam Vitals Vital Signs Date Temp Pulse Resp B/P (MAP) Pulse Ox O2 O2 Flow FiO2 Time Delivery Rate 09/27/18 98.6 77 16 124/82 99 07:29 (96) 09/26/18 21 20:02 09/26/18 2.0 17:25 09/26/18 Room Air 16:00 Intake and Output 09/26/18 09/26/18 09/27/18 1515:00 23:00 07:00 IntakeIntake Total 307.5 ml 100 ml 720 ml OutputOutput Total 1625 ml 1050 ml 250 ml BalanceBalance -1317.5 ml -950 ml 470 ml Results Result Diagram: 09/25/18 0400 09/27/18 0859 Results 24hrs Laboratory Tests Test 09/27/18 08:59 Sodium Level 140 Potassium Level 4.0 Chloride Level 109 Carbon Dioxide Level 25 Anion Gap 6 Blood Urea Nitrogen 9 Creatinine 0.64 Est Glomerular Filtrat Rate mL/min > 60 Glucose Level 84 Calcium Level 7.9 L Medications Medication Current Medications Levetiracetam 750 mg/Dextrose 107.5 ml @ 430 mls/hr Q12 IVPB Last administered on 09/27/18at 10:16; Admin Dose 430 MLS/HR; Start 09/24/18 at 23:30 Cefepime HCl 50 ml @ 100 mls/hr Q12 IVPB Last administered on 09/27/18at 08:43; Admin Dose 100 MLS/HR; Start 09/24/18 at 13:00 Oxycodone/ Acetaminophen (Percocet (5/ 325)) 2 tab Q4H PRN PO .PAIN 7-10; Start 09/24/18 at 14:00 Ibuprofen (Motrin) 600 mg Q6 PO Last administered on 09/27/18at 12:58; Admin Dose 600 MG; Start 09/24/18 at 18:00 Lanolin (Lanolin Hpa) 1 applic BEDSIDE MEDICATION PRN TOP .NIPPLES; Start 09/24/18 at 14:00 Oxytocin/Lactated Ringer's 500 ml @ 0 mls/hr ONCE PRN IV .VAGINAL BLEEDING; Start 09/24/18 at 14:00 Methylergonovine Maleate (Methergine) 0.2 mg ONCE PRN IM .VAGINAL BLEEDING; Start 09/24/18 at 14:00 Carboprost Tromethamine (Hemabate) 250 mcg ONCE PRN IM .VAGINAL BLEEDING; Start 09/24/18 at 14:00 Misoprostol (Cytotec) 1,000 mcg ONCE PRN MA .VAGINAL BLEEDING; Start 09/24/18 at 14:00 Lorazepam (Ativan) 1 mg Q1H PRN IV SEIZURES; Start 09/24/18 at 15:00 Famotidine (Pepcid Iv) 20 mg BID IV Last administered on 09/27/18at 08:43; Admin Dose 20 MG; Start 09/26/18 at 09:00 Penicillin G Benzathine (Bicillin La) 2,400,000 units ONCE ONCE IM ; Start 09/27/18 at 16:00; Stop 09/27/18 at 16:01 REGINA CAMP NP Sep 27, 2018 14:18
[2018-09-27 14:36] VITALS: BP 130/91; PULSE 80; RESP 18
[2018-09-27] MEDS ORDERED: CEFTRIAXONE 1 GM/50 ML (PMX) 50 ML IVPB SCH (15:00)
--- NOTE | 2018-09-27 15:01 | CONS ---
Assessment/Plan Assessment/Plan Assessment/Plan (Recall) 22yo 30 weeks F admitted in eclampsia..c/b seizures..for which neurology is consulted. now s/p emergency Head CT w/ and w/o contrast is unremarkable. EEG is without subclinical seizures.. RPR + P: OK to continue Keppra as ordered in the short-term, with plan to d/c on 09/30 if n o adnl seizures noted Ativan iv prn prolonged seizure or cluster Eclampsia, syphilis and other medical management per primary Will follow clinically Consultation Date/Type/Reason Admit Date/Time Sep 24, 2018 at 10:30 Type of Consult Neurology Reason for Consultation seizures Requesting Provider: MARYCARMEN JUAREZ Date/Time of Note DATE: 09/27/18 TIME: 15:00 24 HR Interval Summary Free Text/Dictation pumping breastmilk Exam/Review of Systems Exam Vitals Vital Signs Date Temp Pulse Resp B/P (MAP) Pulse Ox O2 O2 Flow FiO2 Time Delivery Rate 09/27/18 98.4 80 18 130/91 98 14:36 (104) 09/26/18 21 20:02 09/26/18 2.0 17:25 09/26/18 Room Air 16:00 Intake and Output 09/26/18 09/26/18 09/27/18 1515:00 23:00 07:00 IntakeIntake Total 307.5 ml 100 ml 720 ml OutputOutput Total 1625 ml 1050 ml 250 ml BalanceBalance -1317.5 ml -950 ml 470 ml Results Result Diagram: 09/25/18 0400 09/27/18 0859 Results 24hrs Laboratory Tests Test 09/27/18 08:59 Sodium Level 140 Potassium Level 4.0 Chloride Level 109 Carbon Dioxide Level 25 Anion Gap 6 Blood Urea Nitrogen 9 Creatinine 0.64 Est Glomerular Filtrat Rate mL/min > 60 Glucose Level 84 Calcium Level 7.9 L Medications Medication Current Medications Levetiracetam 750 mg/Dextrose 107.5 ml @ 430 mls/hr Q12 IVPB Last administered on 09/27/18at 10:16; Admin Dose 430 MLS/HR; Start 09/24/18 at 23:30 Oxycodone/ Acetaminophen (Percocet (5/ 325)) 2 tab Q4H PRN PO .PAIN 7-10; Start 09/24/18 at 14:00 Ibuprofen (Motrin) 600 mg Q6 PO Last administered on 09/27/18at 12:58; Admin Dose 600 MG; Start 09/24/18 at 18:00 Lanolin (Lanolin Hpa) 1 applic BEDSIDE MEDICATION PRN TOP .NIPPLES; Start 09/24/18 at 14:00 Oxytocin/Lactated Ringer's 500 ml @ 0 mls/hr ONCE PRN IV .VAGINAL BLEEDING; Start 09/24/18 at 14:00 Methylergonovine Maleate (Methergine) 0.2 mg ONCE PRN IM .VAGINAL BLEEDING; Start 09/24/18 at 14:00 Carboprost Tromethamine (Hemabate) 250 mcg ONCE PRN IM .VAGINAL BLEEDING; Start 09/24/18 at 14:00 Misoprostol (Cytotec) 1,000 mcg ONCE PRN MI .VAGINAL BLEEDING; Start 09/24/18 at 14:00 Lorazepam (Ativan) 1 mg Q1H PRN IV SEIZURES; Start 09/24/18 at 15:00 Famotidine (Pepcid Iv) 20 mg BID IV Last administered on 09/27/18at 08:43; Admin Dose 20 MG; Start 09/26/18 at 09:00 Penicillin G Benzathine (Bicillin La) 2,400,000 units ONCE ONCE IM ; Start 09/27/18 at 16:00; Stop 09/27/18 at 16:01 Ceftriaxone Sodium 50 ml @ 100 mls/hr Q24H IVPB ; Start 09/27/18 at 15:00 MAURI RANKIN Sep 27, 2018 15:01
[2018-09-27] MEDS ORDERED: PENICILLIN G BENZ 2.4 MIL UNIT SYG IM ONE (16:00)
--- NOTE | 2018-09-27 16:19 | CONS ---
Consult Date/Type/Reason Admit Date/Time Sep 24, 2018 at 10:30 Initial Consult Date 09/24/18 Requesting Provider: MARYCARMEN JUAREZ Date/Time of Note DATE: 09/27/18 TIME: 16:16 Subjective Patient seen by primary team yesterday, and infectious disease and neurology teams today. Per nursing staff tolerating diet. Waiting for possible lumbar puncture later today. Objective Vitals Vital Signs Date Temp Pulse Resp B/P (MAP) Pulse Ox O2 O2 Flow FiO2 Time Delivery Rate 09/27/18 98.4 80 18 130/91 98 14:36 (104) 09/26/18 21 20:02 09/26/18 2.0 17:25 09/26/18 Room Air 16:00 Intake and Output 09/26/18 09/26/18 09/27/18 1515:00 23:00 07:00 IntakeIntake Total 307.5 ml 100 ml 720 ml OutputOutput Total 1625 ml 1050 ml 250 ml BalanceBalance -1317.5 ml -950 ml 470 ml Exam Gen: Lying in bed, answering questions HEENT exam: Pupils are small bilaterally. Neck: supple neck, no JVD. No lymphadenopathy. Midline trachea. No thyromegaly. Res; clear to auscultation. CV: S1-S2 audible, no murmurs. Regular rhythm. Abdomen exam; soft, midline dressing in place. Bowel sounds are sluggish. Extremity exam; no peripheral edema. INVENTORY CONTROLLER exam; no focal deficits Results/Medications Result Diagram: 09/25/18 0400 09/27/18 0859 Results 24 hrs Laboratory Tests Test 09/27/18 08:59 Sodium Level 140 Potassium Level 4.0 Chloride Level 109 Carbon Dioxide Level 25 Anion Gap 6 Blood Urea Nitrogen 9 Creatinine 0.64 Est Glomerular Filtrat Rate mL/min > 60 Glucose Level 84 Calcium Level 7.9 L Home Meds Unable to Obtain Active Prescriptions or Reported Meds Medications Current Medications Levetiracetam 750 mg/Dextrose 107.5 ml @ 430 mls/hr Q12 IVPB Last administered on 09/27/18at 10:16; Admin Dose 430 MLS/HR; Start 09/24/18 at 23:30 Oxycodone/ Acetaminophen (Percocet (5/ 325)) 2 tab Q4H PRN PO .PAIN 7-10; Start 09/24/18 at 14:00 Ibuprofen (Motrin) 600 mg Q6 PO Last administered on 09/27/18at 12:58; Admin Dose 600 MG; Start 09/24/18 at 18:00 Lanolin (Lanolin Hpa) 1 applic BEDSIDE MEDICATION PRN TOP .NIPPLES; Start 09/24/18 at 14:00 Oxytocin/Lactated Ringer's 500 ml @ 0 mls/hr ONCE PRN IV .VAGINAL BLEEDING; Start 09/24/18 at 14:00 Methylergonovine Maleate (Methergine) 0.2 mg ONCE PRN IM .VAGINAL BLEEDING; Start 09/24/18 at 14:00 Carboprost Tromethamine (Hemabate) 250 mcg ONCE PRN IM .VAGINAL BLEEDING; Start 09/24/18 at 14:00 Misoprostol (Cytotec) 1,000 mcg ONCE PRN SC .VAGINAL BLEEDING; Start 09/24/18 at 14:00 Lorazepam (Ativan) 1 mg Q1H PRN IV SEIZURES; Start 09/24/18 at 15:00 Famotidine (Pepcid Iv) 20 mg BID IV Last administered on 09/27/18at 08:43; Admin Dose 20 MG; Start 09/26/18 at 09:00 Ceftriaxone Sodium 50 ml @ 100 mls/hr Q24H IVPB Last administered on 09/27/18at 16:00; Admin Dose 100 MLS/HR; Start 09/27/18 at 15:00 Assessment/Plan Hospital Course (Demo Recall) Assessment and plan: 22-year-old female past medical history of being presently 30 weeks , who arrived to the emergency room after having seizure activity likely secondary to eclampsia, now status post emergency , presently intubated and sedated. # Seizure activity: Again likely secondary to eclampsia and again patient had emergency postop day # 3. Again patient currently had no care during this (and may in fact have been unaware of the ) -For now continue Jorge per primary team and neurology recommendations. -neuro checks every 4 hours follow-up further recommendations from neurology consult -Follow-up primary team FIELD REPRESENTATIVES DIRECTOR recommendations -Per ID team, they will give IV penicillin G for treatment of syphilis and ar e considering ordering a lumbar puncture for further work-up of this, follow-up ID and neurology recommendations. #Respiratory distress: Extubated yesterday, before that patient was intubated for airway protection secondary to seizure activity both before and after the emergency section. -Continue current antibiotics, follow-up further pulmonary recs #Status post resection: Again patient was approximately 30 weeks before the emergency postop day # 3 -Continue post care per primary FIELD REPRESENTATIVES DIRECTOR team including labs. We will continue to follow along with you. MARYCARMEN JUAREZ Sep 27, 2018 16:19
[2018-09-27 21:20] VITALS: BP 133/87; PULSE 71; RESP 19
[2018-09-28] MEDS: IBUPROFEN 600 MG TAB PO SCH ×5 (00:44→23:46)
[2018-09-28 03:40] VITALS: BP 137/85; PULSE 70; RESP 19
[2018-09-28 08:00] VITALS: BP 141/84; PULSE 84
[2018-09-28] MEDS: FAMOTIDINE 20 MG INJ IV SCH ×2 (08:28→21:56)
[2018-09-28] MEDS: LEVETIRACETAM IV 750 MG in DEXTROSE 5% 100 ML IVPB SCH ×2 (09:26→21:55)
--- NOTE | 2018-09-28 11:46 | CONS ---
Consult Date/Type/Reason Admit Date/Time Sep 24, 2018 at 10:30 Initial Consult Date 09/24/18 Requesting Provider: MARYCARMEN JUAREZ Date/Time of Note DATE: 09/28/18 TIME: 11:45 Subjective No acute events overnight. Objective Vitals Vital Signs Date Temp Pulse Resp B/P (MAP) Pulse Ox O2 O2 Flow FiO2 Time Delivery Rate 09/28/18 98.3 84 141/84 Room Air 08:00 (103) 09/28/18 03:40 09/27/18 98 14:36 09/26/18 21 20:02 09/26/18 2.0 17:25 Intake and Output 09/27/18 09/27/18 09/28/18 1515:00 23:00 07:00 IntakeIntake Total 157.5 ml 157.5 ml OutputOutput Total 300 ml 800 ml BalanceBalance 157.5 ml -142.5 ml -800 ml Exam Gen: Lying in bed, answering questions HEENT exam: Pupils are small bilaterally. Neck: supple neck, no JVD. No lymphadenopathy. Midline trachea. No thyromegaly. Res; clear to auscultation. CV: S1-S2 audible, no murmurs. Regular rhythm. Abdomen exam; soft, midline dressing in place. Bowel sounds are sluggish. Extremity exam; no peripheral edema. CHEMICAL LABORATORY TESTER exam; no focal deficits Results/Medications Result Diagram: 09/25/18 0400 09/28/18 0431 Results 24 hrs Laboratory Tests Test 09/27/18 15:07 09/28/18 04:31 HIV (1&2) Antibody NEGATIVE Sodium Level 139 Potassium Level 3.9 Chloride Level 110 Carbon Dioxide Level 25 Anion Gap 4 L Blood Urea Nitrogen 8 Creatinine 0.58 Est Glomerular Filtrat Rate mL/min > 60 Glucose Level 84 Calcium Level 8.0 L Home Meds Unable to Obtain Active Prescriptions or Reported Meds Medications Current Medications Levetiracetam 750 mg/Dextrose 107.5 ml @ 430 mls/hr Q12 IVPB Last administered on 09/28/18at 09:26; Admin Dose 430 MLS/HR; Start 09/24/18 at 23:30 Oxycodone/ Acetaminophen (Percocet (5/ 325)) 2 tab Q4H PRN PO .PAIN 7-10; Start 09/24/18 at 14:00 Ibuprofen (Motrin) 600 mg Q6 PO Last administered on 09/28/18at 05:37; Admin Dose 600 MG; Start 09/24/18 at 18:00 Lanolin (Lanolin Hpa) 1 applic BEDSIDE MEDICATION PRN TOP .NIPPLES; Start 09/24/18 at 14:00 Oxytocin/Lactated Ringer's 500 ml @ 0 mls/hr ONCE PRN IV .VAGINAL BLEEDING; Start 09/24/18 at 14:00 Methylergonovine Maleate (Methergine) 0.2 mg ONCE PRN IM .VAGINAL BLEEDING; Start 09/24/18 at 14:00 Carboprost Tromethamine (Hemabate) 250 mcg ONCE PRN IM .VAGINAL BLEEDING; Start 09/24/18 at 14:00 Misoprostol (Cytotec) 1,000 mcg ONCE PRN AR .VAGINAL BLEEDING; Start 09/24/18 at 14:00 Lorazepam (Ativan) 1 mg Q1H PRN IV SEIZURES; Start 09/24/18 at 15:00 Famotidine (Pepcid Iv) 20 mg BID IV Last administered on 09/28/18at 08:28; Admin Dose 20 MG; Start 09/26/18 at 09:00 Ceftriaxone Sodium 50 ml @ 100 mls/hr Q24H IVPB Last administered on 09/27/18at 16:00; Admin Dose 100 MLS/HR; Start 09/27/18 at 15:00 Assessment/Plan Hospital Course (Demo Recall) Assessment and plan: 22-year-old female past medical history of being presently 30 weeks , who arrived to the emergency room after having seizure activity likely secondary to eclampsia, now status post emergency , presently intubated and sedated. # Seizure activity: Again likely secondary to eclampsia and again patient had emergency postop day # 4. Again patient currently had no care during this (and may in fact have been unaware of the ) -For now continue Keppra per primary team and neurology recommendations. -Follow-up primary team [facility]PER[employer]ENT SERVICE recommendations -Per ID team, patient yesterday given IV penicillin G for treatment of syphilis and are considering ordering a lumbar puncture for further work-up of this, follow-up ID and neurology recommendations. #Respiratory distress: Extubated, before that patient was intubated for airway protection secondary to seizure activity both before and after the emergency section. -Continue current antibiotics, follow-up further pulmonary recs #Status post resection: Again patient was approximately 30 weeks before the emergency postop day # 4 -Continue post care per primary SUPERINTENDENT SERVICE team including labs. We will sign off for now. Please reconsult if any further medical issues arise. MARYCARMEN JUAREZ. Sep 28, 2018 11:46
[2018-09-28 12:25] VITALS: BP 142/99
--- NOTE | 2018-09-28 13:54 | CONS ---
Assessment/Plan Assessment/Plan Hospital Course (Demo Recall) ID PROGRESS NOTE CURRENT ABX: DAY # => Ceftriaxone increase dose to 2GM 24H INTERVAL SUMMARY * Ambulatory in room -- denies recurrent SZS, no headaches * Post extubation (+)dry cough * Patient had a positive RPR with titer 1:32, reactive treponemal antibody DIAGNOSTIC IMAGING * 09/25/[address]: 1. No acute intracranial abnormality. No intracranial hemorrhage, extra-axial fluid collection, mass lesion or hydrocephalous. 2. No abnormal contrast enhancement. No evidence of dural venous thrombus. MICRO * 09/27/18 Urine pending * 09/24/18 URINE (-) (-)MRSA PHYSICAL EXAMINATION: GENERAL: VSS, NAD HEENT: AT, NC, NECK: Supple, CHEST: Rise symmetrical HEART: Pulse RRR ABDOMEN: Protuberant, post EXTREMITIES: Warm, dry SKIN: No rash, no diaphoresis ID ASSESSMENT 22 yo F admit with: 1. Syphilis, possibility of neurosyphilis 2. Systemic inflammatory response syndrome on admission 3. Status post seizure 4. Status post acute encephalopathy 5. Status post emergent (-) MRSA Nares ABX ALLERGIES: KNDA INVASIVES: CURRENT ABX: DAY # => Ceftriaxone increase dose to 2GM ID RECOMMENDATIONS/PLAN: 1. Lumbar Tap recommended by Dr. Raymond --> she cannot lie on her stomach 45'- 60' for LP due to post status. * She is willing to have the LP procedure done; however she is requesting side position -- Can this be done? * Plan to discuss with Hospitalist tomorrow if this can be done? 2. Dr. Raymond has low suspicion for neurosyphilis as B/P was elevated and SZS was in setting of Preeclampsia * OPTIONS are to either treat empirically for Neurosyphilis vs Treat for latent (unknown) syphilis with PCN--G Benanthine 2.4million units IM (split dose) for a total of 3 doses Q 7 days apart. . Consultation Date/Type/Reason Admit Date/Time Sep 24, 2018 at 10:30 Initial Consult Date 09/24/18 Requesting Provider: MARYCARMEN JUAREZ Date/Time of Note DATE: 09/28/18 TIME: 13:54 Exam/Review of Systems Exam Vitals Vital Signs Date Temp Pulse Resp B/P (MAP) Pulse Ox O2 O2 Flow FiO2 Time Delivery Rate 09/28/18 98.3 84 141/84 Room Air 08:00 (103) 09/28/18 03:40 09/27/18 98 14:36 09/26/18 21 20:02 09/26/18 2.0 17:25 Intake and Output 09/27/18 09/27/18 09/28/18 1515:00 23:00 07:00 IntakeIntake Total 157.5 ml 157.5 ml OutputOutput Total 300 ml 800 ml BalanceBalance 157.5 ml -142.5 ml -800 ml Results Result Diagram: 09/25/18 0400 09/28/18 0431 Results 24hrs Laboratory Tests Test 09/27/18 15:07 09/28/18 04:31 HIV (1&2) Antibody NEGATIVE Sodium Level 139 Potassium Level 3.9 Chloride Level 110 Carbon Dioxide Level 25 Anion Gap 4 L Blood Urea Nitrogen 8 Creatinine 0.58 Est Glomerular Filtrat Rate mL/min > 60 Glucose Level 84 Calcium Level 8.0 L Medications Medication Current Medications Levetiracetam 750 mg/Dextrose 107.5 ml @ 430 mls/hr Q12 IVPB Last administered on 09/28/18at 09:26; Admin Dose 430 MLS/HR; Start 09/24/18 at 23:30 Oxycodone/ Acetaminophen (Percocet (5/ 325)) 2 tab Q4H PRN PO .PAIN 7-10; Start 09/24/18 at 14:00 Ibuprofen (Motrin) 600 mg Q6 PO Last administered on 09/28/18at 12:48; Admin Dose 600 MG; Start 09/24/18 at 18:00 Lanolin (Lanolin Hpa) 1 applic BEDSIDE MEDICATION PRN TOP .NIPPLES; Start 09/24/18 at 14:00 Oxytocin/Lactated Ringer's 500 ml @ 0 mls/hr ONCE PRN IV .VAGINAL BLEEDING; Start 09/24/18 at 14:00 Methylergonovine Maleate (Methergine) 0.2 mg ONCE PRN IM .VAGINAL BLEEDING; Start 09/24/18 at 14:00 Carboprost Tromethamine (Hemabate) 250 mcg ONCE PRN IM .VAGINAL BLEEDING; Start 09/24/18 at 14:00 Misoprostol (Cytotec) 1,000 mcg ONCE PRN [place] .VAGINAL BLEEDING; Start 09/24/18 at 14:00 Lorazepam (Ativan) 1 mg Q1H PRN IV SEIZURES; Start 09/24/18 at 15:00 Famotidine (Pepcid Iv) 20 mg BID IV Last administered on 09/28/18at 08:28; Admin Dose 20 MG; Start 09/26/18 at 09:00 Ceftriaxone Sodium 50 ml @ 100 mls/hr Q24H IVPB Last administered on 09/27/18at 16:00; Admin Dose 100 MLS/HR; Start 09/27/18 at 15:00 JENN STEEL NP Sep 28, 2018 13:54
[2018-09-28] MEDS ORDERED: LABETALOL 200 MG TAB PO SCH ×2 (14:00→14:30)
[2018-09-28] MEDS: LABETALOL 100 MG TAB PO SCH ×2 (14:23→21:55)
[2018-09-28] MEDS: CEFTRIAXONE 2 GM/50 ML (PMX) 50 ML IVPB SCH (14:40)
[2018-09-28 16:15] VITALS: BP 142/96; PULSE 88
--- NOTE | 2018-09-28 18:24 | PN ---
Date/Time of Note Date/Time of Note DATE: 09/28/18 TIME: 18:14 OB Subjective Subjective Subjective Patient is doing well. She denies nausea, vomiting, shortness of breath, chest pain, headache. She has been ambulating without difficulty, tolerating regular diet. Pain is well controlled on current medications OB Objective Objective Objective Vital Signs Date Temp Pulse Resp B/P (MAP) Pulse Ox O2 O2 Flow FiO2 Time Delivery Rate 09/28/18 98.3 84 141/84 Room Air 08:00 (103) 09/28/18 19 03:40 09/27/18 98 14:36 09/26/18 21 20:02 09/26/18 2.0 17:25 General: AAO X 3, comfortable, NAD, appropriate mood and affect. ABD: +BS. Soft, non-tender. Uterus 2 cm below umbilicus Incision: Clear, dry, intact. No erythema, drainage or induration. Flank: No CVA tenderness (B/L) LE: Mild edema. No clubbing, cyanosis, thigh or calf tenderness (B/L). Homans 'sign is negative OB Assessment/Plan Other plan: 22 years old 1 para 0-1-0-1 with eclampsia s/p delivery -AF -Contraception methods with R/B/A/FR discussed -Continue care -Currently she denies symptom of preeclampsia with severe features -Labetalol 200 mg every 12 hours started today 2) anemia: -Serum iron, TIBC, ferritin ordered -Ferrous sulfate 325 mg BID PO -Continue vitamin 3) multiple episodes of seizure: - Highly due to eclampsia, discussed with neurology PA. Patient is followed by neurology service too. She is currently on Keppra. Possible discharge home on 09/30/2018 per neurologist note, please see the note for detail 4) syphilis: - Other sexually transmitted infections labs ordered. - She is currently on Rocephin per ID - Plan is due LP to rule out neurosyphilis GENE DAILEY Sep 28, 2018 18:24
[2018-09-28 20:00] VITALS: BP 141/91; PULSE 69; RESP 19
[2018-09-28] MEDS ORDERED: CYANOCOBALAMIN 1000 MCG INJ IM ONE (20:00)
[2018-09-28] MEDS: FERROUS SULFATE (EC) 325 MG TAB PO SCH (21:55)
[2018-09-29 04:00] VITALS: BP 124/83; PULSE 69; RESP 18
[2018-09-29] MEDS: IBUPROFEN 600 MG TAB PO SCH ×3 (05:34→18:10)
[2018-09-29 08:30] VITALS: BP 133/86; PULSE 80; RESP 16
[2018-09-29] MEDS: FERROUS SULFATE (EC) 325 MG TAB PO SCH ×2 (09:29→22:01)
[2018-09-29] MEDS: FAMOTIDINE 20 MG INJ IV SCH ×2 (09:29→22:04)
[2018-09-29] MEDS: LABETALOL 100 MG TAB PO SCH ×2 (09:31→22:02)
[2018-09-29] MEDS: LEVETIRACETAM IV 750 MG in DEXTROSE 5% 100 ML IVPB SCH ×2 (10:49→23:06)
--- NOTE | 2018-09-29 10:54 | QN ---
Documentation Comment Postop day #5 Status post primary for severe preeclampsia and seizures Patient stable and afebrile Positive flatus and voiding and tolerating regular diet and ambulating Vital signs stable VS - Last 72 Hours, by Label Date Temp Pulse Resp B/P (MAP) Pulse Ox O2 O2 Flow FiO2 Time Delivery Rate 09/29/18 98.2 80 16 133/86 Room Air 08:30 (102) 09/29/18 97.9 69 18 124/83 04:00 (97) 09/28/18 98.3 69 19 141/91 Room Air 20:00 (108) 09/28/18 98.2 88 142/96 Room Air 16:15 (111) 09/28/18 142/99 12:25 (113) 09/28/18 98.3 84 141/84 Room Air 08:00 (103) 09/28/18 98.2 70 19 137/85 Room Air 03:40 (102) 09/27/18 98.4 71 19 133/87 Room Air 21:20 (102) 09/27/18 98.4 80 18 130/91 98 14:36 (104) 09/27/18 98.6 77 16 124/82 99 07:29 (96) 09/26/18 98.6 84 20 151/96 99 23:50 (114) 09/26/18 140/103 23:00 (115) 09/26/18 82 16 138/106 22:00 (117) 09/26/18 96 23 143/108 21:00 (120) 09/26/18 21 20:02 09/26/18 88 20:00 09/26/18 85 19 131/91 20:00 (104) 09/26/18 98.4 88 20 137/84 19:00 (101) 09/26/18 2.0 17:25 09/26/18 84 15 134/97 95 17:00 (109) 09/26/18 77 13 137/96 95 Room Air 16:00 (110) 09/26/18 72 16:00 09/26/18 77 13 147/95 95 15:00 (112) 09/26/18 100 17 144/98 95 14:00 (113) 09/26/18 84 18 156/89 94 13:00 (111) 09/26/18 104 12:00 09/26/18 98.0 84 18 135/90 94 Room Air 12:00 (105) 09/26/18 92 14 143/97 95 11:00 (112) Hematology - 72 Hrs Test 09/29/18 11:08 Hematocrit 28.7 % (37.0-47.0) L Hemoglobin 9.4 g/dl (12.0-16.0) L Mean Corpuscular Hemoglobin 28.8 pg (29.0-33.0) L Mean Corpuscular Hemoglobin Concent 32.8 g/dl (32.0-37.0) Mean Corpuscular Volume 88.0 fl (82.0-101.0) Mean Platelet Volume 9.9 fl (7.4-10.4) Platelet Count 225 10^3/UL (140-415) # Red Blood Count 3.26 10^6/ul (4.20-5.40) L Red Cell Distribution Width 14.0 % (11.5-14.5) White Blood Count 8.1 10^3/ul (4.8-10.8) # Chemistry Test 09/26/18 14:01 09/27/18 08:59 09/28/18 04:31 09/29/18 04:25 Magnesium 2.4 Level mg/dl (1.7-2.5) # Sodium Level 140 139 139 mmol/L (135-14 mmol/L (135-14 mmol/L (135-14 4) 4) 4) Potassium 4.0 3.9 3.6 Level mmol/L (3.5-5. mmol/L (3.5-5. mmol/L (3.5-5. 1) 1) 1) Chloride Level 109 110 109 mmol/L (97-110 mmol/L (97-110 mmol/L (97-110 ) ) ) Carbon Dioxide 25 25 24 Level mmol/L (21-31) mmol/L (21-31) mmol/L (21-31) Anion Gap 6 (5-13) 4 (5-13) L 6 (5-13) Blood Urea 9 mg/dl 8 mg/dl 9 mg/dl Nitrogen (7-20) (7-20) (7-20) Creatinine 0.64 0.58 0.60 mg/dl (0.44-1. mg/dl (0.44-1. mg/dl (0.44-1. 00) 00) 00) Est Glomerular > 60 > 60 > 60 Filtrat mL/min (>60) mL/min (>60) mL/min (>60) Rate mL/min Glucose Level 84 84 90 mg/dl (70-220) mg/dl (70-220) mg/dl (70-220) Calcium Level 7.9 8.0 8.4 mg/dl (8.4-10. mg/dl (8.4-10. mg/dl (8.4-10. 2) L 2) L 2) Iron Level 68 ug/dl (35-150) Total Iron 343 Binding ug/dl (241-421 Capacity ) Percent Iron 20 % Saturation SAT (22-52) L Ferritin 32.8 ng/ml (6.2-137 .0) Abdomen soft, fundus firm Incision clean,dry,intact Extremities nontender Assessment and plan Patient stable and doing well Continue with Labetalol and Keppra She is currently on Rocephin per ID -Per ID recommendation plan is to do LP to rule out neurosyphilis Patient instructed to follow-up with [facility] in 2 and 6 weeks for / postop care Social service consult was obtained Patient is cleared from obstetrical standpoint to be signed off to hospitalist/infectious disease for further management of syphilis/possibility of neurosyphilis YAMILE MI MD Sep 29, 2018 10:54
[2018-09-29 13:30] VITALS: BP 136/82; PULSE 68; RESP 18
[2018-09-29] MEDS: CEFTRIAXONE 2 GM/50 ML (PMX) 50 ML IVPB SCH (14:33)
[2018-09-29 16:30] VITALS: BP 136/91; PULSE 76; RESP 20
--- NOTE | 2018-09-29 19:17 | CONS ---
Assessment/Plan Assessment/Plan Hospital Course (Demo Recall) ID PROGRESS NOTE CURRENT ABX: DAY # => Ceftriaxone increase dose to 2GM / 24H INTERVAL SUMMARY * Lumbar Tap ordered -- I place wrong order for LP via US -- was called and told they only do this for babies/peds * I placed different order for STAT LP via radiology ----- they were not able to add this on today * DC planning pending r/o Neurosyphilis as patient is young == she wants to DC to [place] with baby. * Currently asymptomatic == Ambulatory in room -- denies recurrent SZS, no headaches * Post extubation (+)dry cough * Patient had a positive RPR with titer 1:32, reactive treponemal antibody DIAGNOSTIC IMAGING * 09/25/[address]: 1. No acute intracranial abnormality. No intracranial hemorrhage, extra-axial fluid collection, mass lesion or hydrocephalous. 2. No abnormal contrast enhancement. No evidence of dural venous thrombus. MICRO * 09/27/18 Urine pending * 09/24/18 URINE (-) (-)MRSA PHYSICAL EXAMINATION: GENERAL: VSS, NAD HEENT: AT, NC, NECK: Supple, CHEST: Rise symmetrical HEART: Pulse RRR ABDOMEN: Protuberant, post EXTREMITIES: Warm, dry SKIN: No rash, no diaphoresis ID ASSESSMENT 22 yo F admit with: 1. Syphilis, possibility of neurosyphilis 2. Systemic inflammatory response syndrome on admission 3. Status post seizure 4. Status post acute encephalopathy 5. Status post emergent (-) MRSA Nares ABX ALLERGIES: KNDA INVASIVES: CURRENT ABX: DAY # => Ceftriaxone increase dose to 2GM ID RECOMMENDATIONS/PLAN: 1. Lumbar Tap recommended by Dr. Raymond --> she cannot lie on her stomach 45'- 60' for LP due to post status. * She is willing to have the LP procedure done; however she is requesting side position -- Can this be done? * I placed different order for STAT LP via radiology ----- they were not able to add this on today 2. Dr. Raymond has low suspicion for neurosyphilis as B/P was elevated and SZS was in setting of Preeclampsia * OPTIONS are to either treat empirically for Neurosyphilis vs Treat for latent (unknown) syphilis with PCN--G Benanthine 2.4million units IM (split dose) for a total of 3 doses Q 7 days apart. * DC planning pending r/o Neurosyphilis as patient is young == she wants to DC to [place] with baby. * Currently asymptomatic == Ambulatory in room -- denies recurrent SZS, no headaches . Consultation Date/Type/Reason Admit Date/Time Sep 24, 2018 at 10:30 Initial Consult Date 09/24/18 Requesting Provider: MARYCARMEN JUAREZ Date/Time of Note DATE: 09/29/18 TIME: 19:14 Exam/Review of Systems Exam Vitals Vital Signs Date Temp Pulse Resp B/P (MAP) Pulse Ox O2 O2 Flow FiO2 Time Delivery Rate 09/29/18 98.1 76 20 136/91 Room Air 16:30 (106) 09/27/18 98 14:36 09/26/18 21 20:02 09/26/18 2.0 17:25 Intake and Output 09/28/18 09/28/18 09/29/18 1515:00 23:00 07:00 IntakeIntake Total 120 ml BalanceBalance 120 ml Results Result Diagram: 09/29/18 1108 09/29/18 0425 Results 24hrs Laboratory Tests Test 09/29/18 04:25 09/29/18 11:08 Sodium Level 139 Potassium Level 3.6 Chloride Level 109 Carbon Dioxide Level 24 Anion Gap 6 Blood Urea Nitrogen 9 Creatinine 0.60 Est Glomerular Filtrat Rate mL/min > 60 Glucose Level 90 Calcium Level 8.4 Iron Level 68 Total Iron Binding Capacity 343 Percent Iron Saturation 20 L Ferritin 32.8 White Blood Count 8.1 # Red Blood Count 3.26 L Hemoglobin 9.4 L Hematocrit 28.7 L Mean Corpuscular Volume 88.0 Mean Corpuscular Hemoglobin 28.8 L Mean Corpuscular Hemoglobin Concent 32.8 Red Cell Distribution Width 14.0 Platelet Count 225 # Mean Platelet Volume 9.9 Immature Granulocytes % 1.100 H Neutrophils % 75.3 Lymphocytes % 15.6 Monocytes % 5.0 Eosinophils % 2.6 Basophils % 0.4 Nucleated Red Blood Cells % 0.0 Immature Granulocytes # 0.090 H Neutrophils # 6.1 Lymphocytes # 1.3 Monocytes # 0.4 Eosinophils # 0.2 Basophils # 0.0 Nucleated Red Blood Cells # 0.0 Medications Medication Current Medications Levetiracetam 750 mg/Dextrose 107.5 ml @ 430 mls/hr Q12 IVPB Last administered on 09/29/18at 10:49; Admin Dose 430 MLS/HR; Start 09/24/18 at 23:30 Oxycodone/ Acetaminophen (Percocet (5/ 325)) 2 tab Q4H PRN PO .PAIN 7-10; Start 09/24/18 at 14:00 Ibuprofen (Motrin) 600 mg Q6 PO Last administered on 09/29/18at 18:10; Admin Dose 600 MG; Start 09/24/18 at 18:00 Lanolin (Lanolin Hpa) 1 applic BEDSIDE MEDICATION PRN TOP .NIPPLES; Start 09/24/18 at 14:00 Oxytocin/Lactated Ringer's 500 ml @ 0 mls/hr ONCE PRN IV .VAGINAL BLEEDING; Start 09/24/18 at 14:00 Methylergonovine Maleate (Methergine) 0.2 mg ONCE PRN IM .VAGINAL BLEEDING; Start 09/24/18 at 14:00 Carboprost Tromethamine (Hemabate) 250 mcg ONCE PRN IM .VAGINAL BLEEDING; Start 09/24/18 at 14:00 Misoprostol (Cytotec) 1,000 mcg ONCE PRN [place] .VAGINAL BLEEDING; Start 09/24/18 at 14:00 Lorazepam (Ativan) 1 mg Q1H PRN IV SEIZURES; Start 09/24/18 at 15:00 Famotidine (Pepcid Iv) 20 mg BID IV Last administered on 09/29/18 09:29; Admin Dose 20 MG; Start 09/26/18 at 09:00 Labetalol HCl (Normodyne) 200 mg BID PO Last administered on 09/29/18 09:31; Admin Dose 200 MG; Start 09/28/18 at 14:20 Ceftriaxone Sodium 50 ml @ 100 mls/hr Q24H IVPB Last administered on 09/29/18at 14:33; Admin Dose 100 MLS/HR; Start 09/28/18 at 14:30; Stop 10/12/18 at 14:29 Ferrous Sulfate (Ferrous Sulfate (Ec)) 325 mg BID PO Last administered on 09/29/18 09:29; Admin Dose 325 MG; Start 09/28/18 at 21:00 JENN STEEL NP Sep 29, 2018:17
[2018-09-29 20:00] VITALS: BP 138/92; PULSE 92; RESP 20
[2018-09-30] VITALS: BP 140/89; PULSE 76; RESP 18
[2018-09-30] MEDS: IBUPROFEN 600 MG TAB PO SCH ×4 (00:26→18:15)
[2018-09-30 04:00] VITALS: BP 136/88; PULSE 82; RESP 20
[2018-09-30 08:00] VITALS: BP 117/74; PULSE 72; RESP 18
[2018-09-30] MEDS: FERROUS SULFATE (EC) 325 MG TAB PO SCH ×2 (09:33→21:09)
[2018-09-30] MEDS: LABETALOL 100 MG TAB PO SCH ×2 (09:34→21:11)
[2018-09-30] MEDS: FAMOTIDINE 20 MG INJ IV SCH (09:34)
[2018-09-30] MEDS: LEVETIRACETAM IV 750 MG in DEXTROSE 5% 100 ML IVPB SCH ×2 (09:43→21:08)
[2018-09-30] MEDS: CEFTRIAXONE 2 GM/50 ML (PMX) 50 ML IVPB SCH (14:29)
--- NOTE | 2018-09-30 14:44 | CONS ---
Assessment/Plan Assessment/Plan Hospital Course (Demo Recall) Patient is alert feels good she is in no distress and afebrile Patient had a positive RPR with titer 1:32, reactive treponemal antibody. Physical examination: Well-developed well-nourished young woman who is alert in no distress. Head atraumatic normocephalic neck is supple chest rise symme trical breath sounds clear heart S1-S2 abdomen soft bowel sounds present extremities without cyanosis Assessment: 1. Syphilis likely secondary, rule out possibility of neurosyphilis 2. Systemic inflammatory response syndrome on admission 3. Status post seizure 4. Status post acute encephalopathy 5. Status post emergent Plan: Stable, s/p high dose PCN on Sunday, pending bedside LP OPTIONS are to either treat empirically for Neurosyphilis vs Treat for latent (unknown) syphilis with PCN--G Benanthine 2.4million units IM (split dose) for a total of 3 doses Q 7 days apart. Consultation Date/Type/Reason Admit Date/Time Sep 24, 2018 at 10:30 Initial Consult Date 09/24/18 Type of Consult id Requesting Provider: MARYCARMEN JUAREZ Date/Time of Note DATE: 09/30/18 TIME: 14:42 Exam/Review of Systems Exam Vitals Vital Signs Date Temp Pulse Resp B/P (MAP) Pulse Ox O2 O2 Flow FiO2 Time Delivery Rate 09/30/18 97.9 72 18 117/74 Room Air 08:00 (88) 09/27/18 98 14:36 09/26/18 21 20:02 09/26/18 2.0 17:25 Intake and Output 09/29/18 09/29/18 09/30/18 1515:00 23:00 07:00 IntakeIntake Total 107.5 ml 50 ml BalanceBalance 107.5 ml 50 ml Results Result Diagram: 09/29/18 1108 09/29/18 0425 Medications Medication Current Medications Levetiracetam 750 mg/Dextrose 107.5 ml @ 430 mls/hr Q12 IVPB Last administered on 09/30/18at 09:43; Admin Dose 430 MLS/HR; Start 09/24/18 at 23:30 Oxycodone/ Acetaminophen (Percocet (5/ 325)) 2 tab Q4H PRN PO .PAIN 7-10; Start 09/24/18 at 14:00 Ibuprofen (Motrin) 600 mg Q6 PO Last administered on 09/30/18at 06:10; Admin Dose 600 MG; Start 09/24/18 at 18:00 Lanolin (Lanolin Hpa) 1 applic BEDSIDE MEDICATION PRN TOP .NIPPLES; Start at 14:00 Oxytocin/Lactated Ringer's 500 ml @ 0 mls/hr ONCE PRN IV .VAGINAL BLEEDING; Start 09/24/18 at 14:00 Methylergonovine Maleate (Methergine) 0.2 mg ONCE PRN IM .VAGINAL BLEEDING; Start 09/24/18 at 14:00 Carboprost Tromethamine (Hemabate) 250 mcg ONCE PRN IM .VAGINAL BLEEDING; Start 09/24/18 at 14:00 Misoprostol (Cytotec) 1,000 mcg ONCE PRN IN .VAGINAL BLEEDING; Start 09/24/18 at 14:00 Lorazepam (Ativan) 1 mg Q1H PRN IV SEIZURES; Start 09/24/18 at 15:00 Famotidine (Pepcid Iv) 20 mg BID IV Last administered on 09/30/18at 09:34; Admin Dose 20 MG; Start 09/26/18 at 09:00 Labetalol HCl (Normodyne) 200 mg BID PO Last administered on 09/30/18 09:34; Admin Dose 200 MG; Start 09/28/18 at 14:20 Ceftriaxone Sodium 50 ml @ 100 mls/hr Q24H IVPB Last administered on 09/30/18 14:29; Admin Dose 100 MLS/HR; Start 09/28/18 at 14:30; Stop 10/12/18 at 14:29 Ferrous Sulfate (Ferrous Sulfate (Ec)) 325 mg BID PO Last administered on 09/30/18at 09:33; Admin Dose 325 MG; Start 09/28/18 at 21:00 REGINA CAMP NP Sep 30, 2018 14:44
[2018-09-30 16:00] VITALS: BP 157/95; PULSE 72; RESP 18
[2018-09-30] MEDS: OXYCODONE/ACETAMINOPHEN (5/325) TAB PO PRN ×2 (16:02→21:08)
[2018-09-30 21:00] VITALS: BP 154/105; PULSE 70; RESP 16
[2018-09-30] MEDS: FAMOTIDINE 20 MG TAB PO SCH (21:09)
[2018-10-01] MEDS: IBUPROFEN 600 MG TAB PO SCH ×4 (00:28→18:13)
[2018-10-01] MEDS: OXYCODONE/ACETAMINOPHEN (5/325) TAB PO PRN ×4 (01:27→19:35)
[2018-10-01 01:55] VITALS: BP 147/93; PULSE 74; RESP 18
[2018-10-01] MEDS ORDERED: hydrALAzine 20 MG INJ IV ONE (03:55)
[2018-10-01 04:44] VITALS: BP 135/79; PULSE 85
[2018-10-01 07:15] VITALS: BP 148/104; PULSE 82; RESP 18
[2018-10-01] MEDS: FERROUS SULFATE (EC) 325 MG TAB PO SCH ×2 (08:20→21:24)
[2018-10-01] MEDS: FAMOTIDINE 20 MG TAB PO SCH ×2 (08:20→21:23)
[2018-10-01] MEDS: LABETALOL 100 MG TAB PO SCH ×2 (08:21→21:26)
[2018-10-01] MEDS: LEVETIRACETAM IV 750 MG in DEXTROSE 5% 100 ML IVPB SCH ×2 (09:00→13:20)
--- NOTE | 2018-10-01 12:51 | CONS ---
Assessment/Plan Assessment/Plan Hospital Course (Demo Recall) All noted, no acute changes Patient had a positive RPR with titer 1:32 Physical examination: Well-developed well-nourished young woman who is alert in no distress. Head atraumatic normocephalic neck is supple chest rise symmetrical breath sounds clear heart S1-S2 abdomen soft bowel sounds present extremities without cyanosis Assessment: 1. Syphilis, likely secondary, rule out possibility of neurosyphilis 2. Systemic inflammatory response syndrome on admission 3. Status post seizure 4. Status post acute encephalopathy 5. Status post emergent Plan: Stable, s/p LP yesterday, pending results for VDRL Consultation Date/Type/Reason Admit Date/Time Sep 24, 2018 at 10:30 Initial Consult Date 09/24/18 Type of Consult id Requesting Provider: MARYCARMEN JUAREZ Date/Time of Note DATE: 10/01/18 TIME: 12:49 Exam/Review of Systems Exam Vitals Vital Signs Date Temp Pulse Resp B/P (MAP) Pulse Ox O2 O2 Flow FiO2 Time Delivery Rate 10/01/18 98.0 82 18 148/104 98 Room Air 07:15 (119) Intake and Output 09/30/18 09/30/18 10/01/18 1515:00 23:00 07:00 IntakeIntake Total 457.5 ml BalanceBalance 457.5 ml Results Result Diagram: 09/29/18 1108 09/29/18 0425 Results 24hrs Laboratory Tests Test 09/30/18 15:26 10/01/18 08:35 10/01/18 09:00 CSF Tubes Submitted 4 CSF Volume 6.5 CSF Appearance CLEAR CSF Color COLORLESS CSF WBC 1 CSF RBC 0 CSF Cell Count Tube # TUBE#4 CSF Mononuclear Cells % (Auto) 0.0 CSF Polynuclear WBCs (%) 100.0 CSF Glucose 48 L CSF Total Protein 25 Lab Scanned Report REFERENCE LAB REFERENCE LAB Medications Medication Current Medications Levetiracetam 750 mg/Dextrose 107.5 ml @ 430 mls/hr Q12 IVPB Last administered on 09/30/18at 21:08; Admin Dose 430 MLS/HR; Start 09/24/18 at 23:30 Oxycodone/ Acetaminophen (Percocet (5/ 325)) 2 tab Q4H PRN PO .PAIN 7-10 Last administered on 10/01/18 05:35; Admin Dose 2 TAB; Start 09/24/18 at 14:00 Ibuprofen (Motrin) 600 mg Q6 PO Last administered on 10/01/18 06:51; Admin Dose 600 MG; Start 09/24/18 at 18:00 Lanolin (Lanolin Hpa) 1 applic BEDSIDE MEDICATION PRN TOP .NIPPLES; Start 09/24/18 at 14:00 Oxytocin/Lactated Ringer's 500 ml @ 0 mls/hr ONCE PRN IV .VAGINAL BLEEDING; Start 09/24/18 at 14:00 Methylergonovine Maleate (Methergine) 0.2 mg ONCE PRN IM .VAGINAL BLEEDING; Start 09/24/18 at 14:00 Carboprost Tromethamine (Hemabate) 250 mcg ONCE PRN IM .VAGINAL BLEEDING; Start 09/24/18 at 14:00 Misoprostol (Cytotec) 1,000 mcg ONCE PRN [place] .VAGINAL BLEEDING; Start 09/24/18 at 14:00 Lorazepam (Ativan) 1 mg Q1H PRN IV SEIZURES; Start 09/24/18 at 15:00 Labetalol HCl (Normodyne) 200 mg BID PO Last administered on 10/01/18 08:21; Admin Dose 200 MG; Start 09/28/18 at 14:20 Ceftriaxone Sodium 50 ml @ 100 mls/hr Q24H IVPB Last administered on 09/30/18 14:29; Admin Dose 100 MLS/HR; Start 09/28/18 at 14:30; Stop 10/12/18 at 14:29 Ferrous Sulfate (Ferrous Sulfate (Ec)) 325 mg BID PO Last administered on 10/01/18 08:20; Admin Dose 325 MG; Start 09/28/18 at 21:00 Famotidine (Pepcid) 20 mg BID PO Last administered on 10/01/18 08:20; Admin Dose 20 MG; Start 09/30/18 at 21:00 REGINA CAMP NP Oct 01, 2018 12:51
[2018-10-01 14:00] VITALS: BP 135/86; PULSE 88; RESP 18
--- NOTE | 2018-10-01 14:33 | CONS ---
Assessment/Plan Assessment/Plan Assessment/Plan (Recall) 22yo 30 weeks F admitted in eclampsia..c/b seizures..for which neurology is consulted. now s/p emergency Head CT w/ and w/o contrast is unremarkable. EEG is without subclinical seizures.. RPR +; s/p LP on 85 P: NSAID prn (with fluids and caffeine if able) post LP headache Taper keppra to off this week. Ativan iv prn prolonged seizure or cluster Continued medical management per primary Will follow clinically Consultation Date/Type/Reason Admit Date/Time Sep 24, 2018 at 10:30 Type of Consult Neurology Reason for Consultation seizures Requesting Provider: MARYCARMEN JUAREZ Date/Time of Note DATE: 10/01/18 TIME: 14:27 24 HR Interval Summary Free Text/Dictation sp LP. now w/ posterior headache..improving Exam/Review of Systems Exam Vitals Vital Signs Date Temp Pulse Resp B/P (MAP) Pulse Ox O2 O2 Flow FiO2 Time Delivery Rate 10/01/18 98.0 82 18 148/104 98 Room Air 07:15 (119) Intake and Output 09/30/18 09/30/18 10/01/18 1515:00 23:00 07:00 IntakeIntake Total 457.5 ml BalanceBalance 457.5 ml Results Result Diagram: 09/29/18 1108 09/29/18 0425 Results 24hrs Laboratory Tests Test 09/30/18 15:26 10/01/18 08:35 10/01/18 09:00 CSF Tubes Submitted 4 CSF Volume 6.5 CSF Appearance CLEAR CSF Color COLORLESS CSF WBC 1 CSF RBC 0 CSF Cell Count Tube # TUBE#4 CSF Mononuclear Cells % (Auto) 0.0 CSF Polynuclear WBCs (%) 100.0 CSF Glucose 48 L CSF Total Protein 25 Lab Scanned Report REFERENCE LAB REFERENCE LAB Medications Medication Current Medications Levetiracetam 750 mg/Dextrose 107.5 ml @ 430 mls/hr Q12 IVPB Last administered on 10/01/18at 13:20; Admin Dose 430 MLS/HR; Start 09/24/18 at 23:30 Oxycodone/ Acetaminophen (Percocet (5/ 325)) 2 tab Q4H PRN PO .PAIN 7-10 Last administered on 10/01/18at 05:35; Admin Dose 2 TAB; Start 09/24/18 at 14:00 Ibuprofen (Motrin) 600 mg Q6 PO Last administered on 10/01/18at 13:19; Admin Dose 600 MG; Start 09/24/18 at 18:00 Lanolin (Lanolin Hpa) 1 applic BEDSIDE MEDICATION PRN TOP .NIPPLES; Start 09/24/18 at 14:00 Oxytocin/Lactated Ringer's 500 ml @ 0 mls/hr ONCE PRN IV .VAGINAL BLEEDING; Start 09/24/18 at 14:00 Methylergonovine Maleate (Methergine) 0.2 mg ONCE PRN IM .VAGINAL BLEEDING; Start 09/24/18 at 14:00 Carboprost Tromethamine (Hemabate) 250 mcg ONCE PRN IM .VAGINAL BLEEDING; Start 09/24/18 at 14:00 Misoprostol (Cytotec) 1,000 mcg ONCE PRN [place] .VAGINAL BLEEDING; Start 09/24/18 at 14:00 Lorazepam (Ativan) 1 mg Q1H PRN IV SEIZURES; Start 09/24/18 at 15:00 Labetalol HCl (Normodyne) 200 mg BID PO Last administered on 10/01/18 08:21; Admin Dose 200 MG; Start 09/28/18 at 14:20 Ceftriaxone Sodium 50 ml @ 100 mls/hr Q24H IVPB Last administered on 09/30/18at 14:29; Admin Dose 100 MLS/HR; Start 09/28/18 at 14:30; Stop 10/12/18 at 14:29 Ferrous Sulfate (Ferrous Sulfate (Ec)) 325 mg BID PO Last administered on 10/01/18 08:20; Admin Dose 325 MG; Start 09/28/18 at 21:00 Famotidine (Pepcid) 20 mg BID PO Last administered on 10/01/18 08:20; Admin Dose 20 MG; Start 09/30/18 at 21:00 MAURI RANKIN Oct 01, 2018 14:33
[2018-10-01] MEDS: CEFTRIAXONE 2 GM/50 ML (PMX) 50 ML IVPB SCH (14:51)
--- NOTE | 2018-10-01 16:32 | QN ---
Documentation Comment The patient is comfortable +BM +Voids No VB Gen NAD Abd soft NT ND Incision is healing well. Genitalia No blood at perineum --->Management as per Medicine --->The patient is clear from Residential Treatment Counselor team MIKE SCHWARTZ M.D. Oct 01, 2018 16:32
--- NOTE | 2018-10-01 16:53 | PSY ---
Date/Time of Note Date/Time of Note DATE: 10/01/18 TIME: 16:48 Psychiatric Subjective Eval Consent Pt consented to telemedicine: No Subjective Evaluation Patient location: inpatient History of present illness Patient is a 22-year-old female who came into the hospital with seizure activity secondary to eclampsia, had a , and currently on the MedSurg floor. [id number] evaluation, patient is tearful, she reports being overwhelmed and emotional, however she denies suicidal ideation denies hopelessness and contracted for safety. Patient states she is also very anxious not being able to stay with her baby. Explained to patient she can go to NICU to visit her baby with supervision of staff. Past psychiatric history Denies Medical history Problems Medical Problems: (1) Eclampsia Status: Acute (2) Seizure Status: Acute Allergies: Coded Allergies: Unknown: Unable to obtain (Unverified , 09/24/18) 09/24 @ 1040am- per rn, unable to obtain allergy info at this time Substance Abuse Substance abuse history: No Prior substance abuse treatmen: No Social History Marital status: other DPA/Conservatorship: No Psychiatric Objective Eval Review of Systems: Review of Systems: Not Applicable Physical Examination: Physical Examination: Not Applicable Energy: Decreased Interest: Decreased Mental Status Examination: Appearance: Poor Hygiene Eye Contact: Poor Psychomotor Activity: Slow Behavior: Guarded Speech: Monotone AFFECT: Flat Mood: Depressed Though Process: Linear Thought Content: Normal Suicidal: No Homicidal: No On 72 hour hold: No Insight: Intact Judgement: Intact Attention Span: Intact Laboratory Results Laboratory Tests Test 09/30/18 15:26 10/01/18 08:35 10/01/18 09:00 CSF Tubes Submitted 4 CSF Volume 6.5 ml CSF Appearance CLEAR CSF Color COLORLESS CSF WBC 1 /cmm CSF RBC 0 /uL CSF Cell Count Tube # TUBE#4 CSF Mononuclear Cells 0.0 % % (Auto) CSF Polynuclear WBCs 100.0 % (%) CSF Glucose 48 mg/dl CSF Total Protein 25 mg/dl Lab Scanned Report REFERENCE LAB [id number] REFERENCE LAB [id number] Assessment and Plan Assessment/Diagnosis Diagnosis 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
[2018-10-01 20:07] VITALS: BP 126/76; PULSE 76; RESP 18
[2018-10-01] MEDS ORDERED: LEVETIRACETAM IV 500 MG in DEXTROSE 5% 100 ML IVPB SCH (21:00)
[2018-10-01] MEDS: LEVETIRACETAM 500 MG (PMX) 100 ML IVPB SCH (21:23)
[2018-10-02 00:14] VITALS: BP 154/94; PULSE 70; RESP 18
[2018-10-02] MEDS: OXYCODONE/ACETAMINOPHEN (5/325) TAB PO PRN ×5 (00:21→21:55)
[2018-10-02] MEDS ORDERED: LORAZEPAM 1 MG TAB PO ONE (01:50)
[2018-10-02] MEDS: IBUPROFEN 600 MG TAB PO SCH ×4 (02:13→17:51)
[2018-10-02 07:24] VITALS: BP 124/59; PULSE 104; RESP 18
[2018-10-02] MEDS: FAMOTIDINE 20 MG TAB PO SCH ×2 (09:32→20:23)
[2018-10-02] MEDS: LEVETIRACETAM 500 MG (PMX) 100 ML IVPB SCH ×2 (09:32→20:23)
[2018-10-02] MEDS: FERROUS SULFATE (EC) 325 MG TAB PO SCH ×2 (09:33→20:23)
[2018-10-02] MEDS: LABETALOL 100 MG TAB PO SCH ×2 (09:34→20:27)
--- NOTE | 2018-10-02 10:35 | CONS ---
Assessment/Plan Assessment/Plan Assessment/Plan (Recall) 22yo 30 weeks F admitted in eclampsia..c/b seizures..for which neurology is consulted. now s/p emergency Head CT w/ and w/o contrast is unremarkable. EEG is without subclinical seizures.. RPR +; s/p LP on 85 P: Will continue to taper keppra to off this week, as it may be exacerbating mood lability.. Ativan iv prn prolonged seizure or cluster Continued medical management per primary Will follow clinically Consultation Date/Type/Reason Admit Date/Time Sep 24, 2018 at 10:30 Type of Consult Neurology Reason for Consultation seizures Requesting Provider: MARYCARMEN JUAREZ Date/Time of Note DATE: 10/02/18 TIME: 10:34 24 HR Interval Summary Free Text/Dictation Seen by psychiatry Exam/Review of Systems Exam Vitals Vital Signs Date Temp Pulse Resp B/P (MAP) Pulse Ox O2 O2 Flow FiO2 Time Delivery Rate 10/02/18 98.4 104 18 124/59 94 Room Air 07:24 (80) Intake and Output 10/01/18 10/01/18 10/02/18 1515:00 23:00 07:00 IntakeIntake Total 107.5 ml 150 ml BalanceBalance 107.5 ml 150 ml Results Result Diagram: 09/29/18 1108 09/29/18 0425 Medications Medication Current Medications Oxycodone/ Acetaminophen (Percocet (5/ 325)) 2 tab Q4H PRN PO .PAIN 7-10 Last administered on 10/02/18at 09:44; Admin Dose 2 TAB; Start 09/24/18 at 14:00 Ibuprofen (Motrin) 600 mg Q6 PO Last administered on 10/02/18at 02:13; Admin Dose 600 MG; Start 09/24/18 at 18:00 Lanolin (Lanolin Hpa) 1 applic BEDSIDE MEDICATION PRN TOP .NIPPLES; Start 09/24/18 at 14:00 Oxytocin/Lactated Ringer's 500 ml @ 0 mls/hr ONCE PRN IV .VAGINAL BLEEDING; Start 09/24/18 at 14:00 Methylergonovine Maleate (Methergine) 0.2 mg ONCE PRN IM .VAGINAL BLEEDING; Start 09/24/18 at 14:00 Carboprost Tromethamine (Hemabate) 250 mcg ONCE PRN IM .VAGINAL BLEEDING; Start 09/24/18 at 14:00 Misoprostol (Cytotec) 1,000 mcg ONCE PRN [place] .VAGINAL BLEEDING; Start 09/24/18 at 14:00 Lorazepam (Ativan) 1 mg Q1H PRN IV SEIZURES; Start 09/24/18 at 15:00 Labetalol HCl (Normodyne) 200 mg BID PO Last administered on 10/02/18 09:34; Admin Dose 200 MG; Start 09/28/18 at 14:20 Ceftriaxone Sodium 50 ml @ 100 mls/hr Q24H IVPB Last administered on 10/01/18at 14:51; Admin Dose 100 MLS/HR; Start 09/28/18 at 14:30; Stop 10/12/18 at 14:29 Ferrous Sulfate (Ferrous Sulfate (Ec)) 325 mg BID PO Last administered on 10/02/18 09:33; Admin Dose 325 MG; Start 09/28/18 at 21:00 Famotidine (Pepcid) 20 mg BID PO Last administered on 10/02/18 09:32; Admin Dose 20 MG; Start 09/30/18 at 21:00 Levetiracetam 100 ml @ 400 mls/hr Q12 IVPB Last administered on 10/02/18 09:32; Admin Dose 400 MLS/HR; Start 10/01/18 at 21:00 MAURI RANKIN Oct 02, 2018 10:34
--- NOTE | 2018-10-02 10:42 | DELSUM ---
Delivery Summary A-C Datetime Report Generated by CPN: 10/02/2018 10:42 DELIVERY PERSONNEL Fibreglass Gun Hand: Mao, Analia MATERNAL INFORMATION Delivery Anesthesia: General Medications in Delivery: SEE ANESTHESIA RECORD Delivery QBL (ml): 600 Placenta Cultured: Yes Maternal Complications: Seizures Other Maternal Complications: possible abruption RN Comments: no prenatals, unknown if pt had any care LABOR SUMMARY No. Babies in Womb: 1 Attempted: No Labor Anesthesia: None LABOR INFORMATION Reason for Induction: Not Applicable Oxytocin: N/A Group B Beta Strep: Not Done Antibiotics # of Doses: 1 Antibiotics Time of Last Dose: 09/24/2018 10:56 Steroids Given: None Reason Steroids Not Administered: Imminent Delivery MEMBRANES Membranes Rupture Method: Artificial Rupture of Membranes: 09/24/2018 10:56 Length of Rupture (hr): 0.02 Amniotic Fluid Color: Bloody Amniotic Fluid Amount: Moderate Amniotic Fluid Odor: None STAGES OF LABOR Stage 3 hr: 0 Stage 3 min: 1 CSECTION DELIVERY Primary Indication: Other Other Primary Indication: SEIZURE ACTIVITY Secondary Indication: N/A CSection Urgency: Emergency CSection Incidence: Primary Labor: No Labor Elective: N/A CSection Incision: Lower Uterine Transverse BABY A INFORMATION Infant Delivery Date/Time: 09/24/2018 10:57 Method of Delivery: Born in Route : No : N/A Forceps: N/A Vacuum Extraction: N/A Shoulder Dystocia : No SHOULDER DYSTOCIA BABY A Delivery Date/Time: 09/24/2018 10:57 PRESENTATION/POSITION BABY A Presentation: Cephalic Cephalic Presentation: Vertex Vertex Position: Left Occipital Anterior Breech Presentation: N/A PLACENTA INFORMATION BABY A Placenta Delivery Time : 09/24/2018 10:58 Placenta Method of Delivery: Manual Removal Placenta Status: Delivered SCORES BABY A Heart Rate 1 min: Slow, Below 100 bpm Resp Effort 1 min: Slow, Irregular Reflex Irritability 1 min: [place] Muscle Tone 1 min: Some Flexion of Extrem Color 1 min: Body [place], Extremit Blue Resuscitation Effort 1 min: Tactile Stimulation; Oxygen; PPV/NCPAP SCORE 1 MIN: 5 Heart Rate 5 min: >100 bpm Resp Effort 5 min: Good Cry Reflex Irritability 5 min: Cough/Sneeze/Pulls Away Muscle Tone 5 min: Active Motion Color 5 min: Blue/Pale Resuscitation Effort 5 min: Tactile Stimulation; Oxygen; PPV/NCPAP SCORE 5 MIN: 8 INFANT INFORMATION BABY A Outcome : Liveborn, with signs of life Infant Condition : Critical Infant Sex: Female IDENTIFICATION/MEDS BABY A ID Band Number: [id number] ID Band Location: Right Leg; Left Arm Sensor Applied: No Vitamin K Given : Not Given Erythromycin Given: Not Given WEIGHT/LENGTH BABY A Infant Birthweight (gm): 1585 Weight (lb): 3 Weight (oz): 8 Length (in): 16.50 Infant Length (cm): 41.91 CORD INFORMATION BABY A No. Cord Vessels: 3 Nuchal Cord : N/A Cord Blood Taken: Yes Infant Suction: Mouth; Nose ASSESSMENT BABY A Infant Complications: Other Infant Complications- Other: possible abruption Physical Findings at Delivery: Within Normal Limits Infant Respirations: Appears Normal Working Manager/ALS Called : Yes Infant Care By: NICU Transferred To: NICU
--- NOTE | 2018-10-02 11:30 | CONS ---
Assessment/Plan Assessment/Plan Hospital Course (Demo Recall) All noted, no acute changes Patient had a positive RPR with titer 1:32 s/p LP 09/30 Physical examination: Well-developed well-nourished young woman who is alert in no distress. Head atraumatic normocephalic neck is supple chest rise symmetrical breath sounds clear heart S1-S2 abdomen soft bowel sounds present extremities without cyanosis Assessment: 1. Syphilis, likely secondary, rule out possibility of neurosyphilis 2. Systemic inflammatory response syndrome on admission 3. Status post seizure 4. Status post acute encephalopathy 5. Status post emergent Plan: Stable, pending CSF VDRL, continue Rocephin, neuro rec-s Consultation Date/Type/Reason Admit Date/Time Sep 24, 2018 at 10:30 Initial Consult Date 09/24/18 Type of Consult id Requesting Provider: MARYCARMEN JAUREZ Date/Time of Note DATE: 10/02/18 TIME: 11:29 Exam/Review of Systems Exam Vitals Vital Signs Date Temp Pulse Resp B/P (MAP) Pulse Ox O2 O2 Flow FiO2 Time Delivery Rate 10/02/18 98.4 104 18 124/59 94 Room Air 07:24 (80) Intake and Output 10/01/18 10/01/18 10/02/18 1515:00 23:00 07:00 IntakeIntake Total 107.5 ml 150 ml BalanceBalance 107.5 ml 150 ml Results Result Diagram: 09/29/18 1108 09/29/18 0425 Medications Medication Current Medications Oxycodone/ Acetaminophen (Percocet (5/ 325)) 2 tab Q4H PRN PO .PAIN 7-10 Last administered on 10/02/18at 09:44; Admin Dose 2 TAB; Start 09/24/18 at 14:00 Ibuprofen (Motrin) 600 mg Q6 PO Last administered on 10/02/18at 02:13; Admin Dose 600 MG; Start 09/24/18 at 18:00 Lanolin (Lanolin Hpa) 1 applic BEDSIDE MEDICATION PRN TOP .NIPPLES; Start 09/24/18 at 14:00 Oxytocin/Lactated Ringer's 500 ml @ 0 mls/hr ONCE PRN IV .VAGINAL BLEEDING; Start 09/24/18 at 14:00 Methylergonovine Maleate (Methergine) 0.2 mg ONCE PRN IM .VAGINAL BLEEDING; Start 09/24/18 at 14:00 Carboprost Tromethamine (Hemabate) 250 mcg ONCE PRN IM .VAGINAL BLEEDING; Start 09/24/18 at 14:00 Misoprostol (Cytotec) 1,000 mcg ONCE PRN [place] .VAGINAL BLEEDING; Start 09/24/18 at 14:00 Lorazepam (Ativan) 1 mg Q1H PRN IV SEIZURES; Start 09/24/18 at 15:00 Labetalol HCl (Normodyne) 200 mg BID PO Last administered on 10/02/18 09:34; Admin Dose 200 MG; Start 09/28/18 at 14:20 Ceftriaxone Sodium 50 ml @ 100 mls/hr Q24H IVPB Last administered on 10/01/18at 14:51; Admin Dose 100 MLS/HR; Start 09/28/18 at 14:30; Stop 10/12/18 at 14:29 Ferrous Sulfate (Ferrous Sulfate (Ec)) 325 mg BID PO Last administered on 10/02/18 09:33; Admin Dose 325 MG; Start 09/28/18 at 21:00 Famotidine (Pepcid) 20 mg BID PO Last administered on 10/02/18 09:32; Admin Dose 20 MG; Start 09/30/18 at 21:00 Levetiracetam 100 ml @ 400 mls/hr Q12 IVPB Last administered on 10/02/18 09:32; Admin Dose 400 MLS/HR; Start 10/01/18 at 21:00 REGINA CAMP NP Oct 02, 2018 11:30
[2018-10-02] MEDS: CEFTRIAXONE 2 GM/50 ML (PMX) 50 ML IVPB SCH (15:17)
[2018-10-02 17:50] VITALS: BP 132/62; PULSE 96; RESP 12
[2018-10-02 19:25] VITALS: BP 176/109; PULSE 70; RESP 18
[2018-10-02 21:55] VITALS: BP 147/112; PULSE 92
[2018-10-03] MEDS: IBUPROFEN 600 MG TAB PO SCH ×4 (00:32→18:13)
[2018-10-03 02:00] VITALS: BP 148/105; PULSE 65; RESP 16
[2018-10-03] MEDS: OXYCODONE/ACETAMINOPHEN (5/325) TAB PO PRN ×5 (03:04→23:09)
[2018-10-03 07:54] VITALS: BP 133/89; PULSE 60
[2018-10-03] MEDS: FERROUS SULFATE (EC) 325 MG TAB PO SCH ×2 (09:33→23:07)
[2018-10-03] MEDS: LEVETIRACETAM 500 MG (PMX) 100 ML IVPB SCH (09:33)
[2018-10-03] MEDS: LABETALOL 100 MG TAB PO SCH ×2 (09:34→23:07)
[2018-10-03] MEDS: FAMOTIDINE 20 MG TAB PO SCH ×2 (09:34→23:07)
--- NOTE | 2018-10-03 10:17 | CONS ---
Assessment/Plan Assessment/Plan Assessment/Plan (Recall) 22yo 30 weeks F admitted in eclampsia..c/b seizures..for which neurology is consulted. now s/p emergency Head CT w/ and w/o contrast is unremarkable. EEG is without subclinical seizures.. RPR +; CSF VDRL neg P: Keppra to po, 25-mg bid through 10/06, then stop. Ativan iv prn prolonged seizure or cluster Continued medical management per primary Will follow clinically Consultation Date/Type/Reason Admit Date/Time Sep 24, 2018 at 10:30 Type of Consult Neurology Reason for Consultation seizures Requesting Provider: MARYCARMEN JUAREZ Date/Time of Note DATE: 10/03/18 TIME: 10:15 24 HR Interval Summary Free Text/Dictation Continues acute care Exam/Review of Systems Exam Vitals Vital Signs Date Temp Pulse Resp B/P (MAP) Pulse Ox O2 O2 Flow FiO2 Time Delivery Rate 10/03/18 98.3 60 133/89 99 Room Air 07:54 (104) 10/03/18 16 02:00 Intake and Output 10/02/18 10/02/18 10/03/18 1515:00 23:00 07:00 IntakeIntake Total 700 ml 390 ml 500 ml OutputOutput Total 2 ml 1 ml BalanceBalance 698 ml 389 ml 500 ml Results Result Diagram: 09/29/18 1108 09/29/18 0425 Medications Medication Current Medications Oxycodone/ Acetaminophen (Percocet (5/ 325)) 2 tab Q4H PRN PO .PAIN 7-10 Last administered on 10/03/18at 09:42; Admin Dose 2 TAB; Start 09/24/18 at 14:00 Ibuprofen (Motrin) 600 mg Q6 PO Last administered on 10/03/18at 06:13; Admin Dose 600 MG; Start 09/24/18 at 18:00 Lanolin (Lanolin Hpa) 1 applic BEDSIDE MEDICATION PRN [place] .NIPPLES; Start 09/24/18 at 14:00 Oxytocin/Lactated Ringer's 500 ml @ 0 mls/hr ONCE PRN IV .VAGINAL BLEEDING; Start 09/24/18 at 14:00 Methylergonovine Maleate (Methergine) 0.2 mg ONCE PRN IM .VAGINAL BLEEDING; Start 09/24/18 at 14:00 Carboprost Tromethamine (Hemabate) 250 mcg ONCE PRN IM .VAGINAL BLEEDING; Start 09/24/18 at 14:00 Misoprostol (Cytotec) 1,000 mcg ONCE PRN [place] .VAGINAL BLEEDING; Start 09/24/18 at 14:00 Lorazepam (Ativan) 1 mg Q1H PRN IV SEIZURES; Start 09/24/18 at 15:00 Labetalol HCl (Normodyne) 200 mg BID PO Last administered on 10/03/18 09:34; Admin Dose 200 MG; Start 09/28/18 at 14:20 Ceftriaxone Sodium 50 ml @ 100 mls/hr Q24H IVPB Last administered on 10/02/18 15:17; Admin Dose 100 MLS/HR; Start 09/28/18 at 14:30; Stop 10/12/18 at 14:29 Ferrous Sulfate (Ferrous Sulfate (Ec)) 325 mg BID PO Last administered on 10/03/18 09:33; Admin Dose 325 MG; Start 09/28/18 at 21:00 Famotidine (Pepcid) 20 mg BID PO Last administered on 10/03/18 09:34; Admin Dose 20 MG; Start 09/30/18 at 21:00 Levetiracetam 100 ml @ 400 mls/hr Q12 IVPB Last administered on 10/03/18 09:33; Admin Dose 400 MLS/HR; Start 10/01/18 at 21:00 MAURI RANKIN Oct 03, 2018 10:17
--- NOTE | 2018-10-03 11:44 | CONS ---
Assessment/Plan Assessment/Plan Hospital Course (Demo Recall) CSF VDRL negative Patient had a positive RPR with titer 1:32 s/p LP 09/30 Physical examination: Well-developed well-nourished young woman who is alert in no distress. Head atraumatic normocephalic neck is supple chest rise symmetrical breath sounds clear heart S1-S2 abdomen soft bowel sounds present extremities without cyanosis Assessment: 1. 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 Systemic inflammatory response syndrome on admission 3. Status post seizure 4. Status post acute encephalopathy 5. Status post emergent Plan: Stable, dc Rocephin, ok dc and f/u at the clinic for 2 more doses of PCN--G Benanthine 2.4million units IM q 7 days Consultation Date/Type/Reason Admit Date/Time Sep 24, 2018 at 10:30 Initial Consult Date 09/24/18 Type of Consult id Requesting Provider: MARYCARMEN JUAREZ Date/Time of Note DATE: 10/03/18 TIME: 11:42 Exam/Review of Systems Exam Vitals Vital Signs Date Temp Pulse Resp B/P (MAP) Pulse Ox O2 O2 Flow FiO2 Time Delivery Rate 10/03/18 98.3 60 133/89 99 Room Air 07:54 (104) 10/03/18 16 02:00 Intake and Output 10/02/18 10/02/18 10/03/18 1515:00 23:00 07:00 IntakeIntake Total 700 ml 390 ml 500 ml OutputOutput Total 2 ml 1 ml BalanceBalance 698 ml 389 ml 500 ml Results Result Diagram: 09/29/18 1108 09/29/18 0425 Results 24hrs Laboratory Tests Test 10/03/18 11:08 Lab Scanned Report REFERENCE LAB Medications Medication Current Medications Oxycodone/ Acetaminophen (Percocet (5/ 325)) 2 tab Q4H PRN PO .PAIN 7-10 Last administered on 10/03/18at 09:42; Admin Dose 2 TAB; Start 09/24/18 at 14:00 Ibuprofen (Motrin) 600 mg Q6 PO Last administered on 10/03/18at 06:13; Admin Dose 600 MG; Start 09/24/18 at 18:00 Lanolin (Lanolin Hpa) 1 applic BEDSIDE MEDICATION PRN [place] .NIPPLES; Start 09/24/18 at 14:00 Oxytocin/Lactated Ringer's 500 ml @ 0 mls/hr ONCE PRN IV .VAGINAL BLEEDING; Start 09/24/18 at 14:00 Methylergonovine Maleate (Methergine) 0.2 mg ONCE PRN [place] .VAGINAL BLEEDING; Start 09/24/18 at 14:00 Carboprost Tromethamine (Hemabate) 250 mcg ONCE PRN IM .VAGINAL BLEEDING; Start 09/24/18 at 14:00 Misoprostol (Cytotec) 1,000 mcg ONCE PRN [place] .VAGINAL BLEEDING; Start 09/24/18 at 14:00 Lorazepam (Ativan) 1 mg Q1H PRN IV SEIZURES; Start 09/24/18 at 15:00 Labetalol HCl (Normodyne) 200 mg BID PO Last administered on 10/03/18at 09:34; Admin Dose 200 MG; Start 09/28/18 at 14:20 Ceftriaxone Sodium 50 ml @ 100 mls/hr Q24H IVPB Last administered on 10/02/18at 15:17; Admin Dose 100 MLS/HR; Start 09/28/18 at 14:30; Stop 10/12/18 at 14:29 Ferrous Sulfate (Ferrous Sulfate (Ec)) 325 mg BID PO Last administered on 10/03/18at 09:33; Admin Dose 325 MG; Start 09/28/18 at 21:00 Famotidine (Pepcid) 20 mg BID PO Last administered on 10/03/18at 09:34; Admin Dose 20 MG; Start 09/30/18 at 21:00 Levetiracetam (Keppra) 250 mg BID PO ; Start 10/03/18 at 21:00 REGINA CAMP NP Oct 03, 2018 11:44
[2018-10-03] MEDS ORDERED: NIFEdipine 10 MG CAP PO SCH (18:00)
--- NOTE | 2018-10-03 18:00 | QN ---
Documentation Comment ATtended twice to the patient;s bed side to see the patient, noted the patient is un available and is in NICU Vitals reviewed and noted an elevated BP in the range of 170/110. Reported by RN that the patient is NICU since this morning, Per RN report patient reported an complains of depressive symptoms, She had not have any other complaint by RN. Discussed with RN [facility] . will plan to add Nifedipine 30 mg XR and to monitor BP closely today. May consider DC home if approrpaite by Neuro and close follow-up with OB clinic within 3 days after discharge from the hospital as well as follow-up with psychiatrist and neurologist. We will continue to monitor blood pressure closely ADRIAN RAJPUT MD Oct 03, 2018 18:00
[2018-10-03 18:30] VITALS: BP 145/93; PULSE 74; RESP 18
[2018-10-03 23:05] VITALS: BP 158/95; PULSE 68; RESP 20
[2018-10-03] MEDS: NIFEdipine (XL) 30 MG TAB PO SCH (23:06)
[2018-10-03] MEDS: LEVETIRACETAM 250 MG TAB PO SCH (23:06)
[2018-10-04] MEDS: IBUPROFEN 600 MG TAB PO SCH ×5 (00:55→23:55)
[2018-10-04] MEDS: OXYCODONE/ACETAMINOPHEN (5/325) TAB PO PRN (03:16)
[2018-10-04 07:23] VITALS: BP 124/81; PULSE 78; RESP 20
[2018-10-04] MEDS: NIFEdipine (XL) 30 MG TAB PO SCH (08:43)
[2018-10-04] MEDS: FERROUS SULFATE (EC) 325 MG TAB PO SCH ×2 (08:43→20:37)
[2018-10-04] MEDS: LABETALOL 100 MG TAB PO SCH ×2 (08:43→20:37)
[2018-10-04] MEDS: LEVETIRACETAM 250 MG TAB PO SCH ×2 (08:43→22:18)
[2018-10-04] MEDS: FAMOTIDINE 20 MG TAB PO SCH ×2 (08:43→20:37)
--- NOTE | 2018-10-04 11:43 | CONS ---
Date/Time of Note Date/Time of Note DATE: 10/04/18 TIME: 11:33 Consult Date/Type/Reason Admit Date Sep 24, 2018 at 10:30 Type of Consult Psych Ordering Provider: MARYCARMEN JUAREZ Patient is a 22-year-old female interviewed in the NICU. She is alert and oriented but somewhat withdrawn and isolative, responding to questions in monosyllables. Patient states she did not sleep well last night, which she blames on being in the hospital as the cause of her not sleeping last night. Brian bowden also has very poor appetite, states she does not like the hospital food. She however denies feeling hopeless, and denies suicidal ideation and contracted for safety. Patient states she feels better this morning after speaking to a friend and is expecting her family from [place] on Sunday. Per social media assistant, patient scored very high, with [place] Depress[employer] on questionnaire, with a score of 13. Discussed risk and benefits of several and antidepressant with patient was adamant and states she she was not going to take an antidepressant or any sleep aid. My recommendation is to transfer her to [facility] where the staffing ratio is better, and where the staff are able to help with a lot of resources . Objective Patient Appearance: Tense Voice Loudness: Severely Soft/Quiet, Monoloudness, Limited Variation Mood and Affect Description: Calm, Fearful, Withdrawn Mood or Affect: Depressed Speech Pattern: Clear Thought Process: Intact Hallucination Type: None Delusion Description: Not Present Assessment/Plan Recommendations Transferred to [facility], patient declined antidepressants and sleep aid. GERMAN SCHAEFER NP Oct 04, 2018 11:43
--- NOTE | 2018-10-04 15:19 | CONS ---
Assessment/Plan Assessment/Plan Hospital Course (Demo Recall) All noted, no acute changes CSF VDRL negative Patient had a positive RPR with titer 1:32 s/p LP 09/30 Physical examination: Well-developed well-nourished young woman who is alert in no distress. Head atraumatic normocephalic neck is supple chest rise symmetrical breath sounds clear heart S1-S2 abdomen soft bowel sounds present extremities without cyanosis Assessment: 1. 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 Systemic inflammatory response syndrome on admission 3. Status post seizure 4. Status post acute encephalopathy 5. Status post emergent Plan: Stable, will give a second PCN dose today, pt needs her last dose next Sunday Consultation Date/Type/Reason Admit Date/Time Sep 24, 2018 at 10:30 Initial Consult Date 09/24/18 Type of Consult id Requesting Provider: MARYCARMEN JUAREZ Date/Time of Note DATE: 10/04/18 TIME: 15:18 Exam/Review of Systems Exam Vitals Vital Signs Date Temp Pulse Resp B/P (MAP) Pulse Ox O2 O2 Flow FiO2 Time Delivery Rate 10/04/18 98.4 78 20 124/81 96 07:23 (95) 10/03/18 Room Air 23:05 Intake and Output 10/03/18 10/03/18 10/04/18 1515:00 23:00 07:00 IntakeIntake Total 100 ml 800 ml 240 ml BalanceBalance 100 ml 800 ml 240 ml Results Results 24hrs Laboratory Tests Test 10/04/18 09:16 Lab Scanned Report REFERENCE LAB Medications Medication Current Medications Oxycodone/ Acetaminophen (Percocet (5/ 325)) 2 tab Q4H PRN PO .PAIN 7-10 Last administered on 10/04/18at 03:16; Admin Dose 2 TAB; Start 09/24/18 at 14:00 Ibuprofen (Motrin) 600 mg Q6 PO Last administered on 10/04/18at 13:56; Admin Dose 600 MG; Start 09/24/18 at 18:00 Lanolin (Lanolin Hpa) 1 applic BEDSIDE MEDICATION PRN TOP .NIPPLES; Start 09/24/18 at 14:00 Oxytocin/Lactated Ringer's 500 ml @ 0 mls/hr ONCE PRN IV .VAGINAL BLEEDING; Start 09/24/18 at 14:00 Methylergonovine Maleate (Methergine) 0.2 mg ONCE PRN IM .VAGINAL BLEEDING; Start 09/24/18 at 14:00 Carboprost Tromethamine (Hemabate) 250 mcg ONCE PRN IM .VAGINAL BLEEDING; Start 09/24/18 at 14:00 Misoprostol (Cytotec) 1,000 mcg ONCE PRN [place] .VAGINAL BLEEDING; Start 09/24/18 at 14:00 Lorazepam (Ativan) 1 mg Q1H PRN IV SEIZURES; Start 09/24/18 at 15:00 Labetalol HCl (Normodyne) 200 mg BID PO Last administered on 10/04/18 08:43; Admin Dose 200 MG; Start 09/28/18 at 14:20 Ferrous Sulfate (Ferrous Sulfate (Ec)) 325 mg BID PO Last administered on 08:43; Admin Dose 325 MG; Start 09/28/18 at 21:00 Famotidine (Pepcid) 20 mg BID PO Last administered on 10/04/18 08:43; Admin Dose 20 MG; Start 09/30/18 at 21:00 Levetiracetam (Keppra) 250 mg BID PO Last administered on 10/04/18 08:43; Admin Dose 250 MG; Start 10/03/18 at 21:00 Nifedipine (Procardia Xl) 30 mg DAILY PO Last administered on 10/04/18 08:43; Admin Dose 30 MG; Start 10/03/18 at 18:30 REGINA CAMP NP Oct 04, 2018 15:19
[2018-10-04] MEDS ORDERED: PENICILLIN G BENZ 2.4 MIL UNIT SYG IM ONE (15:30)
[2018-10-04 20:30] VITALS: BP 122/75; PULSE 87; RESP 20
[2018-10-05 04:00] VITALS: BP 126/76; PULSE 70; RESP 18
[2018-10-05] MEDS: IBUPROFEN 600 MG TAB PO SCH ×3 (05:25→16:26)
[2018-10-05 07:42] VITALS: BP 116/73; PULSE 64; RESP 18
--- NOTE | 2018-10-05 08:54 | CONS ---
Assessment/Plan Assessment/Plan Hospital Course (Demo Recall) All noted Patient had a positive RPR with titer 1:32 s/p LP 09/30 ===CSF VDRL negative Physical examination: Well-developed well-nourished young woman who is alert in no distress. Head atraumatic normocephalic neck is supple chest rise symmetrical breath sounds clear heart S1-S2 abdomen soft bowel sounds present extremities without cyanosis Assessment: 1. 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 Systemic inflammatory response syndrome on admission 3. Status post seizure 4. Status post acute encephalopathy 5. Status post emergent Plan: Stable, s/p second PCN dose yesterday, pt needs her last dose next Sunday Consultation Date/Type/Reason Admit Date/Time Sep 24, 2018 at 10:30 Initial Consult Date 09/24/18 Type of Consult id Requesting Provider: MARYCARMEN JUAREZ Date/Time of Note DATE: 10/05/18 TIME: 08:53 Exam/Review of Systems Exam Vitals Vital Signs Date Temp Pulse Resp B/P (MAP) Pulse Ox O2 O2 Flow FiO2 Time Delivery Rate 10/05/18 97.9 64 18 116/73 98 07:42 (87) 10/05/18 Room Air 04:00 Intake and Output 10/04/18 10/04/18 10/05/18 1515:00 23:00 07:00 IntakeIntake Total 100 ml 120 ml 120 ml BalanceBalance 100 ml 120 ml 120 ml Results Results 24hrs Laboratory Tests Test 10/04/18 09:16 Lab Scanned Report REFERENCE LAB Medications Medication Current Medications Oxycodone/ Acetaminophen (Percocet (5/ 325)) 2 tab Q4H PRN PO .PAIN 7-10 Last administered on 10/04/18at 03:16; Admin Dose 2 TAB; Start 09/24/18 at 14:00 Ibuprofen (Motrin) 600 mg Q6 PO Last administered on 10/05/18at 05:25; Admin Dose 600 MG; Start 09/24/18 at 18:00 Lanolin (Lanolin Hpa) 1 applic BEDSIDE MEDICATION PRN TOP .NIPPLES; Start 09/24/18 at 14:00 Oxytocin/Lactated Ringer's 500 ml @ 0 mls/hr ONCE PRN IV .VAGINAL BLEEDING; Start 09/24/18 at 14:00 Methylergonovine Maleate (Methergine) 0.2 mg ONCE PRN IM .VAGINAL BLEEDING; Start 09/24/18 at 14:00 Carboprost Tromethamine (Hemabate) 250 mcg ONCE PRN IM .VAGINAL BLEEDING; Start 09/24/18 at 14:00 Misoprostol (Cytotec) 1,000 mcg ONCE PRN [place] .VAGINAL BLEEDING; Start 09/24/18 at 14:00 Lorazepam (Ativan) 1 mg Q1H PRN IV SEIZURES; Start 09/24/18 at 15:00 Labetalol HCl (Normodyne) 200 mg BID PO Last administered on 10/04/18 20:37; Admin Dose 200 MG; Start 09/28/18 at 14:20 Ferrous Sulfate (Ferrous Sulfate (Ec)) 325 mg BID PO Last administered on 10/04/18 20:37; Admin Dose 325 MG; Start 09/28/18 at 21:00 Famotidine (Pepcid) 20 mg BID PO Last administered on 10/04/18 20:37; Admin Dose 20 MG; Start 09/30/18 at 21:00 Levetiracetam (Keppra) 250 mg BID PO Last administered on 10/04/18 22:18; Admin Dose 250 MG; Start 10/03/18 at 21:00 Nifedipine (Procardia Xl) 30 mg DAILY PO Last administered on 10/04/18 08:43; Admin Dose 30 MG; Start 10/03/18 at 18:30 REGINA CAMP NP Oct 05, 2018 08:54
[2018-10-05] MEDS: LABETALOL 100 MG TAB PO SCH ×2 (09:02→20:59)
[2018-10-05] MEDS: LEVETIRACETAM 250 MG TAB PO SCH ×2 (09:02→21:00)
[2018-10-05] MEDS: NIFEdipine (XL) 30 MG TAB PO SCH (09:03)
[2018-10-05] MEDS: FERROUS SULFATE (EC) 325 MG TAB PO SCH ×2 (09:03→21:00)
[2018-10-05] MEDS: FAMOTIDINE 20 MG TAB PO SCH ×2 (09:03→21:00)
[2018-10-05 14:00] VITALS: BP 127/90; PULSE 70; RESP 18
[2018-10-05 20:47] VITALS: BP 138/77; PULSE 77; RESP 18
[2018-10-06] MEDS: IBUPROFEN 600 MG TAB PO SCH ×6 (01:46→23:01)
[2018-10-06 01:49] VITALS: BP 150/90; PULSE 68; RESP 17
[2018-10-06 08:26] VITALS: BP 137/89; PULSE 59; RESP 17
[2018-10-06] MEDS: NIFEdipine (XL) 30 MG TAB PO SCH (09:03)
[2018-10-06] MEDS: LEVETIRACETAM 250 MG TAB PO SCH ×2 (09:03→20:04)
[2018-10-06] MEDS: LABETALOL 100 MG TAB PO SCH ×2 (09:03→20:05)
[2018-10-06] MEDS: FAMOTIDINE 20 MG TAB PO SCH ×2 (09:03→20:04)
[2018-10-06] MEDS: FERROUS SULFATE (EC) 325 MG TAB PO SCH ×2 (09:03→20:05)
--- NOTE | 2018-10-06 11:34 | CONS ---
Assessment/Plan Assessment/Plan Hospital Course (Demo Recall) All noted no acute events, looks commmfortable Patient had a positive RPR with titer 1:32 s/p LP 09/30 ===> CSF VDRL negative Physical examination: Well-developed well-nourished young woman who is alert in no distress. Head atraumatic normocephalic neck is supple chest rise symmetrical breath sounds clear heart S1-S2 abdomen soft bowel sounds present extremities without cyanosis Assessment: 1. 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 Systemic inflammatory response syndrome on admission 3. Status post seizure 4. Status post acute encephalopathy 5. Status post emergent Plan: Stable, s/p two doses of PCN G Benzathine, needs to complete last dose 10/11/18 Consultation Date/Type/Reason Admit Date/Time Sep 24, 2018 at 10:30 Initial Consult Date 09/24/18 Type of Consult id Requesting Provider: MARYCARMEN JUAREZ Date/Time of Note DATE: 10/06/18 TIME: 11:32 Exam/Review of Systems Exam Vitals Vital Signs Date Temp Pulse Resp B/P (MAP) Pulse Ox O2 O2 Flow FiO2 Time Delivery Rate 10/06/18 97.9 59 17 137/89 100 08:26 (105) 10/05/18 Room Air 20:47 Medications Medication Current Medications Oxycodone/ Acetaminophen (Percocet (5/ 325)) 2 tab Q4H PRN PO .PAIN 7-10 Last administered on 10/04/18at 03:16; Admin Dose 2 TAB; Start 09/24/18 at 14:00 Ibuprofen (Motrin) 600 mg Q6 PO Last administered on 10/06/18at 04:51; Admin Dose 600 MG; Start 09/24/18 at 18:00 Lanolin (Lanolin Hpa) 1 applic BEDSIDE MEDICATION PRN TOP .NIPPLES; Start 09/24/18 at 14:00 Oxytocin/Lactated Ringer's 500 ml @ 0 mls/hr ONCE PRN IV .VAGINAL BLEEDING; Start 09/24/18 at 14:00 Methylergonovine Maleate (Methergine) 0.2 mg ONCE PRN IM .VAGINAL BLEEDING; Start 09/24/18 at 14:00 Carboprost Tromethamine (Hemabate) 250 mcg ONCE PRN IM .VAGINAL BLEEDING; Start 09/24/18 at 14:00 Misoprostol (Cytotec) 1,000 mcg ONCE PRN [place] .VAGINAL BLEEDING; Start 09/24/18 at 14:00 Lorazepam (Ativan) 1 mg Q1H PRN IV SEIZURES; Start 09/24/18 at 15:00 Labetalol HCl (Normodyne) 200 mg BID PO Last administered on 10/06/18 09:03; Admin Dose 200 MG; Start 09/28/18 at 14:20 Ferrous Sulfate (Ferrous Sulfate (Ec)) 325 mg BID PO Last administered on 10/06/18 09:03; Admin Dose 325 MG; Start 09/28/18 at 21:00 Famotidine (Pepcid) 20 mg BID PO Last administered on 10/06/18 09:03; Admin Dose 20 MG; Start 09/30/18 at 21:00 Levetiracetam (Keppra) 250 mg BID PO Last administered on 10/06/18 09:03; Admin Dose 250 MG; Start 10/03/18 at 21:00 Nifedipine (Procardia Xl) 30 mg DAILY PO Last administered on 10/06/18 09:03; Admin Dose 30 MG; Start 10/03/18 at 18:30 REGINA CAMP NP Oct 06, 2018 11:34
[2018-10-06 14:39] VITALS: BP 119/78; PULSE 90; RESP 18
--- NOTE | 2018-10-06 16:26 | QN ---
Documentation Comment The patient is comfortable +BM +Voids No VB Gen NAD Abd soft NT ND Incision is healing well. Genitalia No blood at perineum --->If patient is cleared from Neurology,she can be discharged --->Questions answered --->precautions discussed MIKE SCHWARTZ M.D. Oct 06, 2018 16:26
--- NOTE | 2018-10-06 16:27 | DS ---
Date/Time of Note Date/Time of Note DATE: 10/06/18 TIME: 16:26 Discharge Summary Admission/Discharge Info Admit Date/Time Sep 24, 2018 at 10:30 Discharge Date/Time 10/06/2018 Discharge Diagnosis post Eclampsia Patient Condition: Good Consults Neurology and Medicine Hospital Course Uneventful Home Meds Unable to Obtain Active Prescriptions or Reported Meds Primary Care Provider Care Physician No Primary MIKE SCHWARTZ M.D. Oct 06, 2018 16:27
[2018-10-06 19:59] VITALS: BP 121/81; PULSE 73; RESP 16
[2018-10-06] MEDS ORDERED: ACETAMINOPHEN 500 MG TAB PO STA (23:59)
[2018-10-07 02:15] VITALS: BP 130/83; PULSE 75; RESP 18
[2018-10-07] MEDS: IBUPROFEN 600 MG TAB PO SCH ×5 (05:24→22:34)
[2018-10-07] MEDS: NIFEdipine (XL) 30 MG TAB PO SCH (08:15)
[2018-10-07] MEDS: FAMOTIDINE 20 MG TAB PO SCH ×2 (08:15→22:27)
[2018-10-07] MEDS: LABETALOL 100 MG TAB PO SCH ×2 (08:16→22:27)
[2018-10-07] MEDS: FERROUS SULFATE (EC) 325 MG TAB PO SCH ×2 (08:16→22:27)
--- NOTE | 2018-10-07 10:30 | CONS ---
Assessment/Plan Assessment/Plan Assessment/Plan (Recall) 22yo 30 weeks F admitted in eclampsia..c/b seizures..for which neurology is consulted. now s/p emergency Head CT w/ and w/o contrast is unremarkable. EEG is without subclinical seizures.. RPR +; CSF VDRL neg s/p Keppra taper P: Continued medical and other management per primary Ativan iv prn prolonged seizure or cluster Will sign off for now; please call w/ adnl ?s Consultation Date/Type/Reason Admit Date/Time Sep 24, 2018 at 10:30 Type of Consult Neurology Reason for Consultation seizures Requesting Provider: MARYCARMEN JUAREZ Date/Time of Note DATE: 10/07/18 TIME: 10:29 24 HR Interval Summary Free Text/Dictation Continues acute care Exam/Review of Systems Exam Vitals Vital Signs Date Temp Pulse Resp B/P (MAP) Pulse Ox O2 O2 Flow FiO2 Time Delivery Rate 10/07/18 36.8 09:01 10/07/18 75 18 130/83 98 Room Air 02:15 (99) Intake and Output 10/06/18 10/06/18 10/07/18 1515:00 23:00 07:00 IntakeIntake Total 360 ml BalanceBalance 360 ml Medications Medication Current Medications Oxycodone/ Acetaminophen (Percocet (5/ 325)) 2 tab Q4H PRN PO .PAIN 7-10 Last administered on 10/04/18at 03:16; Admin Dose 2 TAB; Start 09/24/18 at 14:00 Ibuprofen (Motrin) 600 mg Q6 PO Last administered on 10/07/18at 08:16; Admin Dose 600 MG; Start 09/24/18 at 18:00 Lanolin (Lanolin Hpa) 1 applic BEDSIDE MEDICATION PRN TOP .NIPPLES; Start 09/24/18 at 14:00 Oxytocin/Lactated Ringer's 500 ml @ 0 mls/hr ONCE PRN IV .VAGINAL BLEEDING; Start 09/24/18 at 14:00 Methylergonovine Maleate (Methergine) 0.2 mg ONCE PRN IM .VAGINAL BLEEDING; Start 09/24/18 at 14:00 Carboprost Tromethamine (Hemabate) 250 mcg ONCE PRN IM .VAGINAL BLEEDING; Start 09/24/18 at 14:00 Misoprostol (Cytotec) 1,000 mcg ONCE PRN [place] .VAGINAL BLEEDING; Start 09/24/18 at 14:00 Lorazepam (Ativan) 1 mg Q1H PRN IV SEIZURES; Start 09/24/18 at 15:00 Labetalol HCl (Normodyne) 200 mg BID PO Last administered on 10/07/18 08:16; Admin Dose 200 MG; Start 09/28/18 at 14:20 Ferrous Sulfate (Ferrous Sulfate (Ec)) 325 mg BID PO Last administered on 10/07/18 08:16; Admin Dose 325 MG; Start 09/28/18 at 21:00 Famotidine (Pepcid) 20 mg BID PO Last administered on 10/07/18 08:15; Admin Dose 20 MG; Start 09/30/18 at 21:00 Nifedipine (Procardia Xl) 30 mg DAILY PO Last administered on 10/07/18 08:15; Admin Dose 30 MG; Start 10/03/18 at 18:30 MAURI RANKIN Oct 07, 2018 10:30
--- NOTE | 2018-10-07 12:20 | CONS ---
Assessment/Plan Assessment/Plan Hospital Course (Demo Recall) no acute events Patient had a positive RPR with titer 1:32 s/p LP 09/30 ===> CSF VDRL negative Physical examination: Well-developed well-nourished young woman who is alert in no distress. Head atraumatic normocephalic neck is supple chest rise symmetrical breath sounds clear heart S1-S2 abdomen soft bowel sounds present extremities without cyanosis Assessment: 1. 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 Systemic inflammatory response syndrome on admission 3. Status post seizure 4. Status post acute encephalopathy 5. Status post emergent Plan: Stable, s/p two doses of PCN G Benzathine, needs to complete last dose 10/11/18 Consultation Date/Type/Reason Admit Date/Time Sep 24, 2018 at 10:30 Initial Consult Date 09/24/18 Type of Consult id Requesting Provider: MARYCARMEN JUAREZ Date/Time of Note DATE: 10/07/18 TIME: :19 Exam/Review of Systems Exam Vitals Vital Signs Date Temp Pulse Resp B/P (MAP) Pulse Ox O2 O2 Flow FiO2 Time Delivery Rate 10/07/18 36.8 09:01 10/07/18 75 18 130/83 98 Room Air 02:15 (99) Intake and Output 10/06/18 10/06/18 10/07/18 1515:00 23:00 07:00 IntakeIntake Total 360 ml BalanceBalance 360 ml Medications Medication Current Medications Oxycodone/ Acetaminophen (Percocet (5/ 325)) 2 tab Q4H PRN PO .PAIN 7-10 Last administered on 10/04/18at 03:16; Admin Dose 2 TAB; Start 09/24/18 at 14:00 Ibuprofen (Motrin) 600 mg Q6 PO Last administered on 10/07/18at 08:16; Admin Dose 600 MG; Start 09/24/18 at 18:00 Lanolin (Lanolin Hpa) 1 applic BEDSIDE MEDICATION PRN TOP .NIPPLES; Start 09/24/18 at 14:00 Oxytocin/Lactated Ringer's 500 ml @ 0 mls/hr ONCE PRN IV .VAGINAL BLEEDING; Start 09/24/18 at 14:00 Methylergonovine Maleate (Methergine) 0.2 mg ONCE PRN IM .VAGINAL BLEEDING; Start 09/24/18 at 14:00 Carboprost Tromethamine (Hemabate) 250 mcg ONCE PRN IM .VAGINAL BLEEDING; Start 09/24/18 at 14:00 Misoprostol (Cytotec) 1,000 mcg ONCE PRN [place] .VAGINAL BLEEDING; Start 09/24/18 at 14:00 Lorazepam (Ativan) 1 mg Q1H PRN IV SEIZURES; Start 09/24/18 at 15:00 Labetalol HCl (Normodyne) 200 mg BID PO Last administered on 10/07/18 08:16; Admin Dose 200 MG; Start 09/28/18 at 14:20 Ferrous Sulfate (Ferrous Sulfate (Ec)) 325 mg BID PO Last administered on 10/07/18 08:16; Admin Dose 325 MG; Start 09/28/18 at 21:00 Famotidine (Pepcid) 20 mg BID PO Last administered on 10/07/18 08:15; Admin Dose 20 MG; Start 09/30/18 at 21:00 Nifedipine (Procardia Xl) 30 mg DAILY PO Last administered on 10/07/18 08:15; Admin Dose 30 MG; Start 10/03/18 at 18:30 REGINA CAMP NP Oct 07, 2018 12:20
--- NOTE | 2018-10-07 12:31 | DS ---
Date/Time of Note Date/Time of Note DATE: 10/07/18 TIME: 12:30 Obstetrical Discharge Record Final Diagnosis Final Diagnosis: delivered Other Final Diagnosis Date of admission 09/24/2018 Hospital day: 20 1. Eclampsiapresented on 09/24/2018 to the emergency room with a seizure an dsevere range blood pressures. She was given magnesium sulfate and corticosteroids. Underwent an emergency section at approximately > 30 weeks gestation. Intraoperative placental abruption was noted. She was started on Labetolol and switched to Nifedipine. Prior to discharge she was stable postoperatively, meeting all milestones. 2. Seizures-Neurology was consulted and comanaged. She received Keppra. EEG negative. Head CT negative. 3. Anemia-vitals stable at 130/83. H/H 9.4/28.7. Ferrous sulfate. 4. Syphilis-positive RPR with titer 1:32. Infectious disease was conulted and comanaged. She received Rocephin and Penicillin G. She underwent an LP without significant findings VDRL negative. Likely secondary per ID without evidence of neurosyphilis. 5. Social-primary residence is in [place]. Edmundo BOYD to inform me of when clinical social work therapist completes plan for discharge Section Section: Primary Condition on Discharge Physical Assessment Patient Condition: Stable MILESTONE,BRANDO JOHN Oct 07, 2018 12:31
[2018-10-07 14:24] VITALS: BP 130/78; PULSE 65; RESP 17
[2018-10-07 22:25] VITALS: BP 127/84; PULSE 71; RESP 18
[2018-10-08] MEDS ORDERED: ACETAMINOPHEN 1000MG/100ML IV 100 ML IVPB ONE (00:30)
[2018-10-08 01:46] VITALS: BP 118/74; PULSE 81; RESP 18
[2018-10-08] MEDS: IBUPROFEN 600 MG TAB PO SCH ×2 (06:02→11:12)
[2018-10-08 07:44] VITALS: BP 128/79; PULSE 61; RESP 18
[2018-10-08] MEDS: FAMOTIDINE 20 MG TAB PO SCH (09:04)
[2018-10-08] MEDS: NIFEdipine (XL) 30 MG TAB PO SCH (09:04)
[2018-10-08] MEDS: FERROUS SULFATE (EC) 325 MG TAB PO SCH (09:05)
[2018-10-08] MEDS: LABETALOL 100 MG TAB PO SCH (09:05)
--- NOTE | 2018-10-08 13:45 | CONS ---
Assessment/Plan Assessment/Plan Hospital Course (Demo Recall) no acute events Patient had a positive RPR with titer 1:32 s/p LP 09/30 ===> CSF VDRL negative Physical examination: Well-developed well-nourished young woman who is alert in no distress. Head atraumatic normocephalic neck is supple chest rise symmetrical breath sounds clear heart S1-S2 abdomen soft bowel sounds present extremities without cyanosis Assessment: 1. 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 Systemic inflammatory response syndrome on admission 3. Status post seizure 4. Status post acute encephalopathy 5. Status post emergent Plan: Pending dc, pt needs to complete last dose of PCN on 10/11/18 Consultation Date/Type/Reason Admit Date/Time Sep 24, 2018 at 10:30 Initial Consult Date 09/24/18 Type of Consult id Requesting Provider: MARYCARMEN JUAREZ Date/Time of Note DATE: 10/08/18 TIME: 13:45 Exam/Review of Systems Exam Vitals Vital Signs Date Temp Pulse Resp B/P (MAP) Pulse Ox O2 O2 Flow FiO2 Time Delivery Rate 10/08/18 98.5 61 18 128/79 95 07:44 (95) 10/08/18 Room Air 01:46 Intake and Output 10/07/18 10/07/18 10/08/18 1515:00 23:00 07:00 IntakeIntake Total 400 ml 340 ml BalanceBalance 400 ml 340 ml Medications Medication Current Medications Oxycodone/ Acetaminophen (Percocet (5/ 325)) 2 tab Q4H PRN PO .PAIN 7-10 Last administered on 10/04/18at 03:16; Admin Dose 2 TAB; Start 09/24/18 at 14:00 Ibuprofen (Motrin) 600 mg Q6 PO Last administered on 10/08/18at 11:12; Admin Dose 600 MG; Start 09/24/18 at 18:00 Lanolin (Lanolin Hpa) 1 applic BEDSIDE MEDICATION PRN TOP .NIPPLES; Start 09/24/18 at 14:00 Oxytocin/Lactated Ringer's 500 ml @ 0 mls/hr ONCE PRN IV .VAGINAL BLEEDING; Start 09/24/18 at 14:00 Methylergonovine Maleate (Methergine) 0.2 mg ONCE PRN IM .VAGINAL BLEEDING; Start 09/24/18 at 14:00 Carboprost Tromethamine (Hemabate) 250 mcg ONCE PRN IM .VAGINAL BLEEDING; Start 09/24/18 at 14:00 Misoprostol (Cytotec) 1,[address] .VAGINAL BLEEDING; Start 09/24/18 at 14:00 Lorazepam (Ativan) 1 mg Q1H PRN IV SEIZURES; Start 09/24/18 at 15:00 Labetalol HCl (Normodyne) 200 mg BID PO Last administered on 10/08/18 09:05; Admin Dose 200 MG; Start 09/28/18 at 14:20 Ferrous Sulfate (Ferrous Sulfate (Ec)) 325 mg BID PO Last administered on 10/08/18 09:05; Admin Dose 325 MG; Start 09/28/18 at 21:00 Famotidine (Pepcid) 20 mg BID PO Last administered on 10/08/18 09:04; Admin Dose 20 MG; Start 09/30/18 at 21:00 Nifedipine (Procardia Xl) 30 mg DAILY PO Last administered on 10/08/18 09:04; Admin Dose 30 MG; Start 10/03/18 at 18:30 REGINA CAMP NP Oct 08, 2018 13:45
[2018-10-08 16:00] VITALS: BP 125/72; PULSE 60; RESP 19
== END 2018-10-08 16:36 | disposition still patient (30) | DRG 786 ==
LOC: L-D 10:30 → ICU 11:31 → MS1 09-27 00:26 → MS3 10-04 16:45
PROVIDERS: ADMIT Obstetrics & Gynecology; ATTEND Obstetrics & Gynecology
PROC: 0BH17EZ Insertion of Endotracheal Airway into Trachea, Via Natural or Artificial Opening (ICD-10-PCS; 2018-09-24)
PROC: 0BH17EZ Insertion of Endotracheal Airway into Trachea, Via Natural or Artificial Opening (ICD-10-PCS; 2018-09-24)
PROC: 5A1945Z Respiratory Ventilation, 24-96 Consecutive Hours (ICD-10-PCS; 2018-09-24)
PROC: 06HY33Z Insertion of Infusion Device into Lower Vein, Percutaneous Approach (ICD-10-PCS; 2018-09-24)
PROC: 10D00Z1 Extraction of Products of Conception, Low, Open Approach (ICD-10-PCS; principal; 2018-09-24 11:00)
PROC: 009U3ZX Drainage of Spinal Canal, Percutaneous Approach, Diagnostic (ICD-10-PCS; 2018-09-30)
PROC: B01BYZZ Fluoroscopy of Spinal Cord using Other Contrast (ICD-10-PCS; 2018-09-30)
DX: O15.03 Eclampsia complicating pregnancy, third trimester (principal); O45.93 Premature separation of placenta, unspecified, third trimester; G93.40 Encephalopathy, unspecified; O98.12 Syphilis complicating childbirth; O99.355 Diseases of the nervous system complicating the puerperium; G40.409 Other generalized epilepsy and epileptic syndromes, not intractable, without status epilepticus; O75.89 Other specified complications of labor and delivery; R06.03 Acute respiratory distress; O90.81 Anemia of the puerperium; D64.9 Anemia, unspecified; O99.345 Other mental disorders complicating the puerperium; F32.9 Major depressive disorder, single episode, unspecified; Z3A.30 30 weeks gestation of pregnancy; Z37.0 Single live birth
CPT/HCPCS: 31500; 36600; 70470; 71045; 80048; 80053; 80307; 81001; 82728; 82803; 82945; 83540; 83735; 84157; 84560; 85025; 85384; 85610; 85730; 86592; 86703; 86762; 86780; 86850; 86900; 86901; 87070; 87081; 87086; 87340; 87591; 88307; 89051; 90715; 94002; 94003; 94770; 95819; 99464; C9113; J0131; J0360; J0561; J0690; J0692; J0696; J0702; J1100; J1170; J1953; J2060; J2250; J2270; J2405; J2590; J3010; J3420; J3475; J3480; J7040; J7120; Q9967

== ENCOUNTER 2018-10-11 21:38 | Emergency (ER) | payer MEDICAID ==
[~2018-10-11] VITALS: Ht 162.6 cm; Wt 58.3 kg
[2018-10-11 21:49] VITALS: Ht 162.6 cm; Wt 58.3 kg
[2018-10-11] MEDS ORDERED: PENICILLIN G BENZ 2.4 MIL UNIT SYG IM ONE (23:00)
[2018-10-11 23:30] VITALS: BP 133/79; PULSE 77; RESP 18
== END 2018-10-11 23:40 | disposition home or self-care (01) ==
LOC: FTE 21:38
DX: O98.13 Syphilis complicating the puerperium (principal); A51.49 Other secondary syphilitic conditions; Z09 Encounter for follow-up examination after completed treatment for conditions other than malignant neoplasm
CPT/HCPCS: 96372; J0561; Z7502